=== PATIENT | male | born 1970 | race African-American/Black ===

== ENCOUNTER 2016-09-29 14:10 | Emergency (ER) | payer BC, OTHER ==
[2016-09-29] MEDS ORDERED: KETOROLAC 60 MG/2 ML VIAL IM STA (14:25)
[2016-09-29] MEDS ORDERED: METOCLOPRAMIDE 10 MG TAB PO STA (14:25)
[2016-09-29] MEDS ORDERED: amLODIPine 5 MG TAB PO STA (14:25)
[2016-09-29] MEDS ORDERED: diphenhydrAMINE 50 MG/ML 1 ML VIAL IM STA (14:25)
[2016-09-29] MEDS ORDERED: LISINOPRIL 20 MG TAB PO STA (14:25)
--- NOTE | 2016-09-29 14:31 | ED ---
General Adult HPI - General Chief complaint: Headache Stated complaint: migraine Time Seen by Provider: 09/29/16 14:21 Source: patient, RN notes reviewed Mode of arrival: ambulatory Limitations: no limitations - History of Present Illness Initial comments: 46-year-old male with history of hypertension and migraines presenting for headache. Patient states some headache for the past day and half. Says it feels frontal in distribution. He denies any visual changes associated. He also states that he has been off of his hypertension medication since January 2016. States he takes amlodipine and benazapril for this. He states his headache seemed to come on when his blood pressure is high. He denies any chest pain or shortness of breath associated. Denies any lower extremity swelling. He has not tried any medications to help this at this point. - Related Data Previous Rx's Medication Instructions Recorded Benazepril HCl 40 mg PO DAILY #30 tab 09/29/16 Ibuprofen [Motrin] 800 mg PO Q8HR PRN #21 tab 09/29/16 amLODIPine [Norvasc] 5 mg PO DAILY #30 tab 09/29/16 Allergies Allergy/AdvReac Type Severity Reaction Status Date / Time No Known Allergies Allergy Verified 09/29/16 14:51 Review of Systems ROS Statement: Those systems with pertinent positive or pertinent negative responses have been documented in the HPI. ROS Other: All systems not noted in ROS Statement are negative. Past Medical History Past Medical History: Hypertension Additional Past Medical History / Comment(s): migraines History of Any Multi-Drug Resistant Organisms: None Reported Past Surgical History: Orthopedic Surgery Past Psychological History: No Psychological Hx Reported Smoking Status: Current every day smoker Past Alcohol Use History: Occasional Past Drug Use History: Marijuana General Exam - General Exam Comments Initial Comments: General: Awake and Alert. No acute distress. Does not appear acutely ill. Eyes: CARLI, EOM intact. No nystagmus. No scleral icterus. HENT: Atraumatic, normocephalic. Mucous membranes moist. Trachea midline. Neck: The neck is supple, there is no tenderness or JVD. Cardiovascular: Regular rate and rhythm. No murmur, rub, or gallop is appreciated. Distal pulses intact. Respiratory: Lungs are clear to auscultation bilaterally. No wheezes, rales, rhonchi. No respiratory distress. Gastrointestinal: Soft, Nontender. No rebound or guarding. Non-distended. No masses or organomegaly noted. No CVA tenderness. Musculoskeletal: No tenderness. Normal ROM. No gross deformity. No strength deficits. Neurological: A&Ox3. CN II-XII grossly intact, There are no obvious motor or sensory deficits. Coordination appears grossly intact. Speech is normal. Skin: Skin is warm and dry and no rashes or lesions are noted. Psychiatric: Cooperative, appropriate mood & affect, normal judgment. Limitations: no limitations Course Vital Signs 09/29/16 09/29/16 09/29/16 14:17 14:50 15:33 Temperature 97 F L Pulse Rate 90 90 Respiratory 20 18 Rate Blood Pressure 205/102 216/132 187/112 O2 Sat by Pulse 98 98 Oximetry 09/29/16 15:55 Temperature 98.8 F Pulse Rate 79 Respiratory 18 Rate Blood Pressure 167/100 O2 Sat by Pulse 96 Oximetry Medical Decision Making - Medical Decision Making 46-year-old male evaluated for headache. He has a history of migraines and hypertension. States feels like his normal type of headache. He has been off hypertension medications for the past several months. He is noted to be hypertensive in the ED. He denies any chest pain or shortness of breath or visual changes associated. Neurological exam is nonfocal. Patient is given doses of his hypertensive medications as well as headache cocktail. On reevaluation he states he is feeling significantly improved. Repeat BP improving. Discussed importance of restarting his hypertensive medications and Rx provided. Discussed importance of getting back in with Dr. Donohue for blood pressure recheck and titration of medications. Otherwise appears stable for discharge at this time. Discussed concerning signs symptoms for immediate return to the ED. Patient is agreeable with plan and discharge home. Disposition Clinical Impression: Nonintractable headache, Essential hypertension Disposition: HOME SELF-CARE Condition: Stable Instructions: Acute Headache (ED), Hypertension (ED) Prescriptions: amLODIPine [Norvasc] 5 mg PO DAILY #30 tab Benazepril HCl 40 mg PO DAILY #30 tab Ibuprofen [Motrin] 800 mg PO Q8HR PRN #21 tab PRN Reason: Pain Referrals: Edy Donohue MD [Primary Care Provider] - 1-2 days Time of Disposition: 15:49
[2016-09-29 14:52] VITALS: RESP 18
[2016-09-29 15:57] VITALS: BP 167/100; PULSE 79; TEMP 98.8
== END 2016-09-29 15:55 | disposition home or self-care (01) ==
LOC: EC 14:10
DX: I10 Essential (primary) hypertension (principal); R51 Headache; F17.200 Nicotine dependence, unspecified, uncomplicated; Z86.69 Personal history of other diseases of the nervous system and sense organs; Z79.899 Other long term (current) drug therapy
CPT/HCPCS: 99283; 96372 ×2; J1200; J1885

== ENCOUNTER → 2018-01-08 | Outpatient (CLI) | payer OTHER ==
--- NOTE | 2018-01-08 09:55 | MR ---
EXAMINATION TYPE: MR knee RT wo con DATE OF EXAM: 01/08/2018 9:13 AM COMPARISON: NONE HISTORY: Right knee pain TECHNIQUE: Multiplanar, multiecho imaging of the right knee is performed without IV contrast. FINDINGS: There is only a small amount of joint fluid. There is some bony bruising involving the inferior pole of the patella. There is grade IV chondromala chintan involving the lateral patellar facet. There is grade III to IV chondromalacia involving the weigh tbearing surface of the medial femoral condyle. There is grade I to II chondromalacia involving the w eightbearing surface of the lateral femoral condyle. There is pseudocystic change in the anteromedial aspect of the lateral femoral condyle. There is an undisplaced horizontal tear through the body of the lateral meniscus. The medial meniscus appears intact. Both the medial and lateral collateral ligament complexes are intact. Iliotibial band inserts normall y upon Gerdy's tubercle. There is a small amount of fluid adjacent to the popliteus musculotendinous junction. This may represent a small ganglion cyst. This is teardrop shape and measures just over a c entimeter in length. The popliteus muscle and tendon are otherwise unremarkable. The quadriceps and patellar tendons are intact. There is only minimal swelling in the Hoffa fat space . IMPRESSION: 1 CHONDROMALACIA DESCRIBED. 2. PSEUDOCYSTIC CHANGE IN THE ANTEROMEDIAL ASPECT OF THE LATERAL FEMORAL CONDYLE. 3. UNDISPLACED HORIZONTAL TEAR THROUGH THE BODY OF THE LATERAL MENISCUS. 4. PROBABLE SMALL GANGLION CYST ASSOCIATED WITH THE MUSCULOTENDINOUS JUNCTION OF THE POPLITEUS MUSCLE .
== END | disposition home or self-care (01) ==
LOC: RADMRIMAIN 08:36
PROVIDERS: ATTEND Physician Assistant Medical
DX: S83.281A Other tear of lateral meniscus, current injury, right knee, initial encounter (principal); M94.261 Chondromalacia, right knee

== ENCOUNTER 2018-09-12 16:44 | Emergency (ER) | payer OTHER ==
[2018-09-12] MEDS ORDERED: SODIUM CHLORIDE 0.9% 500 ML 500 ML IV ONE (16:46)
[2018-09-12] MEDS ORDERED: SODIUM CHLORIDE 0.9% 1,000 ML IV SCH (17:00)
[2018-09-12] MEDS ORDERED: LABETALOL SYRINGE 5 MG/ML IVP STA (17:04)
--- NOTE | 2018-09-12 17:13 | ED ---
General Adult HPI - General Chief complaint: Recheck/Abnormal Lab/Rx Stated complaint: Seizure Time Seen by Provider: 09/12/18 16:46 Source: patient, EMS, RN notes reviewed, old records reviewed Mode of arrival: EMS Limitations: no limitations - History of Present Illness Initial comments: 48-year-old male presents for evaluation of seizure-like activity. Patient was brought in by EMS after an episode of generalized shaking. Patient was responsive throughout this episode. He had been complaining of a headache. Headaches have been present for the past 3 or 4 weeks. He has no previous history of seizure disorder. He has previous history of hypertension but has not been on medication for several months. He is uncertain of exactly what medication he was on. Denies focal numbness or weakness. Denies chest pain or dyspnea. He did have an episode of vomiting with central chest pain prior to arrival this has resolved without treatment. He has been going through quite a bit of stress including a recent family member with stage IV cancer. - Related Data Previous Rx's Medication Instructions Recorded amLODIPine [Norvasc] 10 mg PO DAILY #30 tablet 09/12/18 Allergies Allergy/AdvReac Type Severity Reaction Status Date / Time No Known Allergies Allergy Verified 09/12/18 17:34 Review of Systems ROS Statement: Those systems with pertinent positive or pertinent negative responses have been documented in the HPI. ROS Other: All systems not noted in ROS Statement are negative. Past Medical History Past Medical History: Hypertension Additional Past Medical History / Comment(s): migraines History of Any Multi-Drug Resistant Organisms: None Reported Past Surgical History: Orthopedic Surgery Past Psychological History: No Psychological Hx Reported Smoking Status: Current every day smoker Past Alcohol Use History: Occasional Past Drug Use History: Marijuana General Exam Limitations: no limitations General appearance: alert, in no apparent distress Head exam: Present: atraumatic, normocephalic Eye exam: Present: normal appearance, PERRL ENT exam: Present: normal exam Neck exam: Present: normal inspection. Absent: tenderness, meningismus Respiratory exam: Present: normal lung sounds bilaterally. Absent: respiratory distress, wheezes, rales Cardiovascular Exam: Present: regular rate, normal rhythm GI/Abdominal exam: Present: soft. Absent: distended, tenderness Extremities exam: Present: normal inspection, normal capillary refill, pedal edema. Absent: calf tenderness Neurological exam: Present: alert, oriented X3, CN II-XII intact. Absent: motor sensory deficit Psychiatric exam: Present: normal affect, normal mood Skin exam: Present: warm, dry, intact. Absent: cyanosis, diaphoretic Course Vital Signs 09/12/18 09/12/18 09/12/18 16:50 17:30 18:05 Temperature 98.3 F Pulse Rate 84 79 79 Respiratory 18 18 20 Rate Blood Pressure 230/120 175/119 187/123 O2 Sat by Pulse 99 99 96 Oximetry 09/12/18 09/12/18 18:30 19:28 Temperature Pulse Rate 80 81 Respiratory 18 18 Rate Blood Pressure 175/114 131/130 O2 Sat by Pulse 98 98 Oximetry EKG Findings - EKG Comments: EKG Findings:: EKG: Normal sinus rhythm, rate of 83, ND interval 196, QRS duration 92, QTC 439 T waves are upright. Medical Decision Making - Medical Decision Making 48-year-old male presenting for evaluation of generalized shaking, concern for seizure. Patient was alert throughout this episode, he does remember his symptoms. No seizure disorder previously. Patient was noted to have significantly elevated blood pressure, he's been off his antihypertensive medications for some time. He also complained of intermittent headaches. CT was performed, this was negative for intracranial hemorrhage or mass effect per patient has normal CBC, normal CMP. Urinalysis pending I would prefer this patient be admitted for further workup of the possibility of Seizures as well as hypertension. His blood pressures quite elevated, was given 20 of labetalol with some improvement in his pressure in the emergency department. Patient declines. He wants to be discharged. Will initiate antihypertensive medications. I will give him neurology follow-up. He will return with worsening or changing symptoms. - Lab Data Result diagrams: 09/12/18 17:02 09/12/18 17:02 Lab Results 09/12/18 09/12/18 09/12/18 Range/Units 17:02 17:02 17:02 WBC 5.2 (3.8-10.6) k/uL RBC 5.25 (4.30-5.90) m/uL Hgb 14.7 (13.0-17.5) gm/dL Hct 45.3 (39.0-53.0) % MCV 86.3 (80.0-100.0) fL MCH 28.0 (25.0-35.0) pg MCHC 32.5 (31.0-37.0) g/dL RDW 15.4 (11.5-15.5) % Plt Count 165 (150-450) k/uL Neutrophils % 66 % Lymphocytes % 18 % Monocytes % 9 % Eosinophils % 4 % Basophils % 0 % Neutrophils # 3.4 (1.3-7.7) k/uL Lymphocytes # 0.9 L (1.0-4.8) k/uL Monocytes # 0.5 (0-1.0) k/uL Eosinophils # 0.2 (0-0.7) k/uL Basophils # 0.0 (0-0.2) k/uL Sodium 141 (137-145) mmol/L Potassium 3.5 (3.5-5.1) mmol/L Chloride 111 H (98-107) mmol/L Carbon Dioxide 24 (22-30) mmol/L Anion Gap 6 mmol/L BUN 17 (9-20) mg/dL Creatinine 1.00 (0.66-1.25) mg/dL Est GFR (CKD-EPI)AfAm >90 (>60 ml/min/1.73 sqM) Est GFR (CKD-EPI)NonAf 87 (>60 ml/min/1.73 sqM) Glucose 107 H (74-99) mg/dL Plasma Lactic Acid Rei 1.4 (0.7-2.0) mmol/L Calcium 9.5 (8.4-10.2) mg/dL Total Bilirubin 0.4 (0.2-1.3) mg/dL AST 27 (17-59) U/L ALT 22 (21-72) U/L Alkaline Phosphatase 49 (38-126) U/L Total Protein 7.3 (6.3-8.2) g/dL Albumin 4.1 (3.5-5.0) g/dL Disposition Clinical Impression: Hypertension, New onset seizure Disposition: HOME SELF-CARE Condition: Fair Instructions (If sedation given, give patient instructions): New-Onset Seizure in Adults (ED), Hypertension (ED) Prescriptions: amLODIPine [Norvasc] 10 mg PO DAILY #30 tablet Is patient prescribed a controlled substance at d/c from ED?: No Referrals: [facility] [Primary Care Provider] - 1-2 days Jessica Kwon MD [STAFF PHYSICIAN] - 1-2 days Time of Disposition: 20:26
[2018-09-12 17:21] LABS: Basophils % (A) 0 %; Eosinophils # (A) 0.2 k/uL (0-0.7); Eosinophils % (A) 4 %; HCT 45.3 % (39.0-53.0); HGB 14.7 gm/dL (13.0-17.5); Lymphocytes # (A) 0.9 k/uL (1.0-4.8); Lymphocytes % (A) 18 %; MCHC 32.5 g/dL (31.0-37.0); MCV 86.3 fL (80.0-100.0); Mean Platelet Volume 8.9; Monocytes # (A) 0.5 k/uL (0-1.0); Monocytes % (A) 9 %; Neutrophils # (A) 3.4 k/uL (1.3-7.7); Neutrophils % (A) 66 %; Platelet Count 165 k/uL (150-450); RBC 5.25 m/uL (4.30-5.90); RDW 15.4 % (11.5-15.5); WBC 5.2 k/uL (3.8-10.6)
[2018-09-12 17:38] LABS: ALT 22 U/L (21-72); AST 27 U/L (17-59); Albumin 4.1 g/dL (3.5-5.0); Alkaline Phosphatase 49 U/L (38-126); Anion Gap 6 mmol/L; Blood Urea Nitrogen 17 mg/dL (9-20); Calcium 9.5 mg/dL (8.4-10.2); Carbon Dioxide 24 mmol/L (22-30); Chloride 111 mmol/L (98-107); Glucose 107 mg/dL (74-99); Potassium 3.5 mmol/L (3.5-5.1); Sodium 141 mmol/L (137-145); Total Bilirubin 0.4 mg/dL (0.2-1.3); Total Protein 7.3 g/dL (6.3-8.2)
--- NOTE | 2018-09-12 18:36 | CT ---
EXAMINATION TYPE: CT brain wo con DATE OF EXAM: 09/12/2018 COMPARISON: Prior CT brain 01/21/2014 HISTORY: Seizure. CT DLP: 1111.4 mGycm Automated exposure control for dose reduction was used. Helical imaging through the brain. FINDINGS: There is no interval change. IMPRESSION: STABLE EXAM, NO ACUTE ABNORMALITY.
[2018-09-12 19:29] VITALS: RESP 18
[2018-09-12 19:30] VITALS: PULSE 81
[2018-09-12 20:29] LABS: Appearance,Urine Clear (Clear); Bilirubin,Urine Negative (Negative); Blood,Urine Small (Negative); Color,Urine Yellow; Glucose,Urine (UA) Negative (Negative); Ketones,Urine Negative (Negative); Leukocyte Esterase,Urine Trace (Negative); Mucus,Urine Occasional /hpf; Nitrite,Urine Negative (Negative); PH, Urine 5.5 (5.0-8.0); Protein,Urine Trace (Negative); RBC,Urine 3 /hpf (0-5); Squamous Epithelial Cell,Urine 1 /hpf (0-4); Urobilinogen,Urine <2.0 mg/dL (<2.0); WBC,Urine 10 /hpf (0-5)
[2018-09-12 20:44] LABS: Amphetamine Screen,Urine Not Detected (NotDetected); Barbiturate Screen,Urine Not Detected (NotDetected); Benzodiazepines Screen,Urine Not Detected (NotDetected); Cocaine Screen,Urine Not Detected (NotDetected); Methadone Screen, Urine Not Detected (NotDetected); Opiate Screen,Urine Not Detected (NotDetected); Oxycodone Screen, Urine Not Detected (NotDetected); Phencyclidine Screen,Urine Not Detected (NotDetected); Tricyclic Antidepressant,Urine Not Detected (NotDetected); Urn Cannabinoid Scrn Not Detected (NotDetected)
[2018-09-12 20:53] VITALS: BP 162/104; TEMP 98.4
== END 2018-09-12 20:45 | disposition home or self-care (01) ==
LOC: EC 16:44
DX: R56.9 Unspecified convulsions (principal); I10 Essential (primary) hypertension; R51 Headache; F17.200 Nicotine dependence, unspecified, uncomplicated; Z86.69 Personal history of other diseases of the nervous system and sense organs
CPT/HCPCS: 36415; 70450; 80053; 80306; 81001; 83605; 85025; 93005; 96361; 96374; 99285

== ENCOUNTER 2019-01-10 11:30 | Day surgery (SDC) | payer OTHER ==
[~2019-01-10 11:30] MED LIST: LACTATED RINGERS 1,000 ML IV SCH; LIDOCAINE 1% 20 ML VIAL (10MG/ML) FOR IV START INTRADERMA PRN
[2019-01-10 11:50] VITALS: TEMP 97.6
[2019-01-10] MEDS ORDERED: LIDOCAINE 1% INJ 10MG/ML (20 ML MDV) ONE (12:01)
[2019-01-10] MEDS ORDERED: PROPOFOL 10 MG/ML 20 ML VIAL IV ONE (12:01)
[2019-01-10] MEDS ORDERED: IV FLUID CONTINUATION 1,000 ML IV ONE (12:33)
--- NOTE | 2019-01-10 12:37 | P.PCN ---
Date of Procedure: 01/10/19 Description of Procedure: BRIEF HISTORY: Patient is a 48-year-old pleasant male scheduled for an elective colonoscopy as a part of screening for malignant neoplasm of the colon. No prior history of colonoscopy. Patient does have a family history of colon cancer mother. Denies any change in bowel habits, blood per rectum or abdominal pain. PROCEDURE PERFORMED: Colonoscopy with polypectomy. PREOPERATIVE DIAGNOSIS: Screening for malignant neoplasm colon, family history of colon cancer in the patient's mother, no prior colonoscopies. ESTIMATED BLOOD LOSS: Minimal. IV sedation per Anesthesia. PROCEDURE: After informed consent was obtained, the patient, was brought into the endoscopy unit. IV sedation was administered by Anesthesia under continuous monitoring. Digital rectal examination was normal. Initially the Olympus CF-190 flexible video colonoscope was then inserted in the rectum, gradually advanced into the cecum without any difficulty. Careful examination was performed as the scope was gradually being withdrawn. Ileocecal valve and the appendiceal orifice were visualized and appeared normal. Prep was excellent. Mucosa of the cecum, ascending colon, transverse colon, descending colon, sigmoid colon, and rectum appeared normal. Diminutive 2 mm ascending colon sessile polyp removed with cold forceps polypectomy. Retroflexion was performed in the rectum and no lesions were seen. The patient tolerated the procedure well. IMPRESSION: Normal-appearing colon from rectum to cecum. Diminutive 2 mm ascending colon polyp removed with cold forceps. RECOMMENDATIONS: Findings of this examination were discussed with the patient. Okay to resume diet. Recommend repeat colonoscopy in 5 years given family history of colon cancer. Await pathology from polypectomy.
[2019-01-10 12:49] VITALS: PULSE 78; RESP 18
[2019-01-10 13:00] VITALS: BP 132/78
== END 2019-01-10 13:20 | disposition home or self-care (01) ==
LOC: ORWHC2ENDO 11:30
PROVIDERS: ATTEND Internal Medicine
DX: Z12.11 Encounter for screening for malignant neoplasm of colon (principal); D12.2 Benign neoplasm of ascending colon; Z80.0 Family history of malignant neoplasm of digestive organs; Z79.899 Other long term (current) drug therapy; Z98.890 Other specified postprocedural states; F17.210 Nicotine dependence, cigarettes, uncomplicated; I10 Essential (primary) hypertension
CPT/HCPCS: 88305; 45380; J2001; J2704

== ENCOUNTER → 2021-12-31 | Outpatient (CLI) | payer OTHER ==
--- NOTE | 2022-01-01 06:20 | MR ---
EXAMINATION TYPE: MR knee RT wo con DATE OF EXAM: 12/31/2021 COMPARISON: Prior MRI right knee January 08, 2018 HISTORY: Right inner knee pain, painful kneecap, locking and swelling for 4 years. TECHNIQUE: Multiplanar, multisequence imaging of the right knee is performed without IV contrast. FINDINGS: MEDIAL MENISCUS: Truncated appearance posterior horn with increased signal extending to inferior nesha cular surface redemonstrated. LATERAL MENISCUS: Horizontal increased signal anterior horn extends to superior articular surface. CRUCIATE LIGAMENTS: The anterior and posterior cruciate ligaments are intact and unremarkable. COLLATERAL LIGAMENTS: The medial collateral ligament and lateral collateral ligament complex are inta ct and unremarkable. EXTENSOR MECHANISM: Visualized quadriceps and patellar tendons are intact. EFFUSION: No significant suprapatellar joint effusion. POPLITEAL CYST: No popliteal/carrion cyst. TRICOMPARTMENT SPACES: Moderate to severe narrowing inferior patellofemoral compartment redemonstrate d. Mild to moderate narrowing and mild spurring medial and lateral tibiofemoral compartments redemons trated. CARTILAGE: Significant chondromalacia patella with fissuring and cartilaginous loss along posterior p atellar pole radius central and inferior aspect. BONE MARROW SIGNAL: Areas of subchondral cystic change along the posterior patellar pole and along th e anterior aspect of the distal lateral femoral condyle is related. OTHER: Stable 1.2 cm intramedullary lesion of low T1 and increased T2 signal in the distal femoral d iaphysis coronal image 20 favored nonaggressive in etiology. IMPRESSION: 1. Moderate to advanced patellofemoral joint arthropathy redemonstrated as detailed above. No signifi cant change from prior MRI. Mild to moderate degenerative changes otherwise seen. 2. Horizontal tear anterior horn lateral meniscus extending into body redemonstrated. 3. Full thickness tearing posterior horn medial meniscus extending into the central body appears more prominent from prior MRI.
== END | disposition home or self-care (01) ==
LOC: RADMRIMAIN 19:02
PROVIDERS: ATTEND Orthopaedic Surgery
DX: M23.241 Derangement of anterior horn of lateral meniscus due to old tear or injury, right knee (principal); M23.221 Derangement of posterior horn of medial meniscus due to old tear or injury, right knee

== ENCOUNTER → 2022-02-12 | Outpatient (CLI) | payer OTHER ==
[2022-02-12 15:35] LABS: Anion Gap 11.3 mmol/L (10.00-18.00); Carbon Dioxide 22.7 mmol/L (20.0-27.5); Potassium 4.1 mmol/L (3.5-5.5)
[2022-02-12 15:40] LABS: Basophils # (A) 0.05 X 10*3/uL (0.00-0.10); Basophils % (A) 0.6 %; Eosinophils # (A) 0.47 X 10*3/uL (0.04-0.35); Eosinophils % (A) 5.7 %; HCT 44.6 % (39.6-50.0); HGB 14.7 g/dL (13.0-17.0); Immature Grans, Automated 0.2 %; Lymphocytes # (A) 2.63 X 10*3/uL (0.90-5.00); Lymphocytes % (A) 32.1 %; MCH 29.3 pg (27.0-32.0); MCV 88.8 fL (80.0-97.0); Mean Platelet Volume 10.6 fL (9.5-12.2); Monocytes # (A) 0.74 X 10*3/uL (0.20-1.00); NRBC Per 100 WBC 0 /100 WBCS (0.0-0.0); Neutrophils # (A) 4.29 X 10*3/uL (1.80-7.70); Neutrophils % (A) 52.4 %; Platelet Count 246 X 10*3/uL (140-440); RBC 5.02 X 10*6/uL (4.40-5.60); RDW 15.4 % (11.5-14.5)
== END | disposition home or self-care (01) ==
LOC: LABPAT 08:11
PROVIDERS: ATTEND Orthopaedic Surgery
DX: Z01.812 Encounter for preprocedural laboratory examination (principal); M23.91 Unspecified internal derangement of right knee
CPT/HCPCS: 36415; 80051; 85025; 93005

== ENCOUNTER 2022-02-26 13:19 | Day surgery (SDC) | payer OTHER ==
[2022-02-20 13:13] VITALS: BMI 31.4
--- NOTE | 2022-02-26 00:52 | HP ---
HISTORY AND PHYSICAL DATE OF SURGERY: 02/26/2022. HISTORY OF PRESENT ILLNESS: Kacie Jade is a 52-year-old patient seen with progressive right knee pain. We discussed options for treatment. The patient would like to proceed with right knee arthroscopy. Consent was obtained. PAST MEDICAL HISTORY: Hypertension, hyperlipidemia. PAST SURGICAL HISTORY: Foot surgery. DAILY MEDICATIONS: 1. Amlodipine. 2. Benazepril. 3. Carvedilol. 4. Ibuprofen. ALLERGIES: None. SOCIAL HISTORY: The patient does not smoke cigarettes. PHYSICAL EVALUATION OF THE RIGHT KNEE: Range of motion of the right knee is 0 to 125. Mild effusion. Tenderness along the medial and lateral joint lines. Positive medial Daniella's. Positive lateral Daniella's. Ligaments stable. Hip rotation without pain. Distal neurovascular exam is intact. RADIOGRAPHS: Right knee radiographs revealed moderate osteoarthritis. MRI of right knee revealed medial and lateral meniscal tears along with osteoarthritic changes. IMPRESSION: 1. Internal derangement of right knee with medial and lateral meniscal tears. 2. Hypertension. 3. Hyperlipidemia. PLAN: Right knee arthroscopy with partial medial/lateral meniscectomy and debridement. MMODL / IJN: [id number] /
[2022-02-26] MEDS ORDERED: DEXAMETHASONE SOD PHOSPHATE 4 MG/ML 1 ML VIAL IV ONE (13:48)
[2022-02-26] MEDS ORDERED: LACTATED RINGERS 1,000 ML IV SCH (13:48)
[2022-02-26] MEDS ORDERED: LIDOCAINE 1% (10MG/ML) FOR IV START INTRADERMA PRN (13:48)
[2022-02-26] MEDS ORDERED: ONDANSETRON 4 MG/2 ML VIAL IVP ONE (13:48)
[2022-02-26 14:09] VITALS: RESP 16
[2022-02-26] MEDS ORDERED: HYDROmorphone (PF) 1 MG/ML ONE (15:15)
[2022-02-26] MEDS ORDERED: PROPOFOL 10 MG/ML 20 ML VIAL IV ONE (15:15)
[2022-02-26] MEDS ORDERED: LIDOCAINE 2% INJ 20 MG/ML (2 ML VIAL) ONE (15:15)
[2022-02-26] MEDS ORDERED: MIDAZOLAM 2 MG/2 ML VIAL ONE (15:15)
[2022-02-26] MEDS ORDERED: fentaNYL (PF) 50 MCG/ML 2 ML AMP ONE (15:15)
[2022-02-26] MEDS ORDERED: BUPIVACAINE (PF) 0.25% 30 ML VIAL INTRAARTIC ONE (15:41)
[2022-02-26] MEDS ORDERED: LACTATED RINGERS 1,000 ML IV ONE (15:47)
--- NOTE | 2022-02-26 16:08 | P.OP ---
Date of Procedure: 02/26/22 Preoperative Diagnosis: Internal derangement right knee Postoperative Diagnosis: 1. Tear medial and lateral meniscus right knee 2. Reactive synovitis medial, lateral and suprapatellar compartments right knee Procedure(s) Performed: 1. Arthroscopic partial medial and lateral meniscectomy right knee 2. Arthroscopic partial synovectomy medial, lateral and suprapatellar compartments right knee Anesthesia: GETA, local Surgeon: Morgan Peraza Estimated Blood Loss (ml): 7 Pathology: none sent Condition: stable Disposition: PACU Indications for Procedure: 52-year-old patient seen with progressive right knee pain. After treatment options were discussed, he elected to proceed with arthroscopy. Operative Findings: See description of procedure Description of Procedure: Patient was taken to the operative suite. Patient underwent a general anesthetic by the department of anesthesia. Patient was given preoperative antibiotics. The right lower extremity was placed in a well-padded arthroscopic leg [place]. The right leg was prepped and draped in the normal sterile orthopedic fashion. A lateral parapatellar and suprapatellar incision was made. Trochars were inserted. Arthroscopy was initiated. Suprapatellar pouch revealed diffuse thick reactive synovitis. The patellofemoral joint appeared to articulate congruently. There with grade 1/2 chondromalacia of the patella without significant osteochondral tears.. The scope was guided into the medial gutter. No loose bodies or plica were identified. The scope was then guided into the medial compartment. A medial parapatellar incision was made. Trocar i nserted followed by probe. There was a complex tear involving the posterior horn of the medial meniscus. There was some thick reactive synovitis anteriorly. There were grade 1 chondromalacia changes of medial compartment. I performed a partial medial meniscectomy. I performed a partial synovectomy. Shaver was now removed. The residual meniscus was stable. There was good decompression of the synovitis. Scope and probe were then guided into the intercondylar notch. Cruciates were identified, probed and found to be stable. The scope and probe were then guided into lateral compartment. There was a radial tear involving the midbody lateral meniscus. There was some thick reactive synovitis anteriorly. I performed a partial lateral meniscectomy. I performed a partial synovectomy. The residual meniscus was probed and was found to be stable. There was good decompression of the synovitis. The scope was in guided back into the suprapatellar compartment. I introduced a motorized shaver into the suprapatellar compartment. I debrided out some piecemeal fragments of meniscus I encountered. I performed a partial synovectomy. The shaver was now removed. There was good decompression of the synovitis. I now took one more look around the entire knee, no residual debris. Instruments were now removed from the joint. The joint was infiltrated with .25% Marcaine. Steri-Strips were applied to the portal sites. Sterile dressings were applied. The patient was placed into a TEODORA hose. No tourniquet was utilized. The patient was awakened, transferred to a bed and taken to recovery stable satisfactory condition.
[2022-02-26 16:12] VITALS: TEMP 97.4
[2022-02-26] MEDS: HYDROmorphone 0.5 MG/0.5 ML SYRINGE IVP PRN ×2 (16:20→16:26)
[2022-02-26] MEDS ORDERED: HYDROcodone/APAP 7.5-325MG 1 EACH TAB PO ONE (17:00)
[2022-02-26] MEDS ORDERED: HYDROcodone/APAP 7.5-325MG 1 EACH TAB ONE (17:01)
[2022-02-26] MEDS ORDERED: KETOROLAC 15 MG/ML 1 ML VIAL IVP ONE (17:05)
[2022-02-26] MEDS ORDERED: KETOROLAC 15 MG/ML 1 ML VIAL ONE (17:08)
[2022-02-26 17:24] VITALS: BP 138/90; PULSE 75
== END 2022-02-26 17:37 | disposition home or self-care (01) ==
LOC: OR 13:19
PROVIDERS: ATTEND Orthopaedic Surgery
DX: S83.281A Other tear of lateral meniscus, current injury, right knee, initial encounter (principal); S83.241A Other tear of medial meniscus, current injury, right knee, initial encounter; M17.11 Unilateral primary osteoarthritis, right knee; M23.91 Unspecified internal derangement of right knee; I10 Essential (primary) hypertension; E78.5 Hyperlipidemia, unspecified
CPT/HCPCS: 29880; J2250; J1100; J0690; J2405; J3010; J1170 ×2; J1885; J2704; J2001

== ENCOUNTER 2022-07-02 12:29 | Day surgery (SDC) | payer OTHER ==
--- NOTE | 2022-07-01 21:42 | HP ---
HISTORY AND PHYSICAL DATE OF SURGERY: 07/02/2022. HISTORY OF PRESENT ILLNESS: Kacie Jade is a 52-year-old patient seen with progressive left knee pain. We discussed options for treatment. He elected to proceed with left knee arthroscopy. Consent regarding procedure was obtained. PAST MEDICAL HISTORY: Hypertension, hyperlipidemia. PAST SURGICAL HISTORY: Foot surgery. DAILY MEDICATIONS: 1. Amlodipine. 2. Atorvastatin. 3. Benazepril. 4. Carvedilol. ALLERGIES: None. SOCIAL HISTORY: He does currently smoke cigarettes. PHYSICAL EVALUATION OF LEFT KNEE: Range of motion is negative to 120 degrees. Tenderness along the medial and lateral joint lines. There is a positive medial Daniella's and positive lateral Daniella's. Ligaments are stable. Hip rotation is without pain. Distal neurovascular exam is intact. RADIOGRAPHS: Radiographs of the left knee revealed some mild osteoarthritic changes. MRI left knee revealed medial meniscal tear and osteoarthritic changes. IMPRESSION: 1. Internal derangement of left knee with medial meniscal tear. 2. Hypertension. 3. Hyperlipidemia. PLAN: Left knee arthroscopy with partial medial meniscectomy and debridement. MMODL / IJN: [id number] /
[~2022-07-02 12:29] MED LIST changes: -LACTATED RINGERS 1,000 ML IV SCH; +LIDOCAINE 1% (10MG/ML) FOR IV START INTRADERMA PRN; -LIDOCAINE 1% 20 ML VIAL (10MG/ML) FOR IV START INTRADERMA PRN; +MIDAZOLAM 2 MG/2 ML VIAL IV PRN
[2022-07-02] MEDS: LACTATED RINGERS 1,000 ML IV SCH (13:09)
[2022-07-02] MEDS: DEXAMETHASONE SOD PHOSPHATE 4 MG/ML 1 ML VIAL IV ONE ×2 (13:09→19:05)
[2022-07-02] MEDS: ONDANSETRON 4 MG/2 ML VIAL IVP ONE ×2 (13:10→19:05)
[2022-07-02] MEDS ORDERED: LIDOCAINE 2% INJ 20 MG/ML (2 ML VIAL) ONE (13:33)
[2022-07-02] MEDS ORDERED: LABETALOL 5 MG/ML VIAL MDV ONE (13:33)
[2022-07-02] MEDS ORDERED: MIDAZOLAM 2 MG/2 ML VIAL ONE (13:33)
[2022-07-02] MEDS ORDERED: PROPOFOL 10 MG/ML 20 ML VIAL IV ONE (13:33)
[2022-07-02] MEDS ORDERED: fentaNYL (PF) 50 MCG/ML 2 ML AMP ONE (13:33)
[2022-07-02] MEDS ORDERED: BUPIVACAIN-EPI 0.25%-1:200,000 30 ML VIAL SQ ONE (13:36)
--- NOTE | 2022-07-02 14:18 | P.OP ---
Date of Procedure: 07/02/22 Preoperative Diagnosis: Internal derangement left knee Postoperative Diagnosis: 1. Medial and lateral meniscal tears left knee 2. Reactive synovitis medial, lateral and suprapatellar compartments left knee Procedure(s) Performed: 1. Arthroscopic partial medial and lateral meniscectomy left knee 2. Arthroscopic partial synovectomy medial, lateral and suprapatellar compartments left knee Anesthesia: GETA, local Surgeon: Morgan Peraza Estimated Blood Loss (ml): 11 Pathology: none sent Condition: stable Disposition: PACU Indications for Procedure: 52-year-old patient seen with progressive left knee pain. After treatment options were discussed, the patient to proceed with left knee arthroscopy. Operative Findings: See description of procedure Description of Procedure: Patient was taken to the operative suite. Patient underwent a general anesthetic by the department of anesthesia. Patient was given preoperative antibiotics. The left lower extremity was placed in a well-padded arthroscopic leg [place]. The left leg was prepped and draped in the normal sterile orthopedic fashion. A lateral parapatellar and suprapatellar incision was made. Trochars were inserted. Arthroscopy was initiated. Suprapatellar pouch revealed diffuse thick reactive synovitis. The patellofemoral joint appeared to articulate congruently. There was grade 2 chondromalacia of the patella without significant osteochondral tears.. The scope was guided into the medial gutter. No loose body or plica were identified. The scope was then guided into the medial compartment. A medial parapatellar incision was made. Trocar inserted followed by probe. There was a complex tear involving the posterior horn of the medial meniscus. There were grade 1 chondromalacia changes of the medial femoral condyle without tears. There was some thick reactive synovitis anteriorly. I performed a partial medial meniscectomy getting down to stable meniscal tissue. I performed a partial synovectomy decompressing the reactive synovitis. The residual meniscus was stable. There was good decompression of the synovitis. Scope and probe were then guided into the intercondylar notch. Cruciates were identified, probed and found to be stable. The scope and probe were then guided into lateral compartment. There was a radial tear mid body lateral meniscus. There was some thick reactive synovitis anteriorly. I performed a partial lateral meniscectomy getting down to stable meniscal tissue. I performed a partial synovectomy decompressing the reactive synovitis. The residual meniscus was stable. There was good decompression of the synovitis. The scope was in guided back into the suprapatellar compartment. I introduced a motorized shaver into the suprapatellar compartment. I debrided some piecemeal fragments of meniscus that I encountered. I performed a partial synovectomy. The shaver was now removed. There was good decompression of the synovitis. I took one more look around the entire knee, no residual debris. Instruments were now removed from the joint. The joint was infiltrated with .25% Marcaine. Steri-Strips were applied to the portal sites. Sterile dressings were applied. The patient was placed into a TEODORA hose. No tourniquet was utilized. The patient was awakened, transferred to a bed and taken to recovery stable satisfactory condition.
[2022-07-02] MEDS: HYDROmorphone 0.5 MG/0.5 ML SYRINGE IVP PRN ×3 (14:34→14:56)
[2022-07-02] MEDS: LABETALOL SYRINGE 5 MG/ML IVP ONE ×2 (15:09→15:31)
[2022-07-02] MEDS ORDERED: HYDROcodone/APAP 5-325MG 1 EACH TAB ONE ×2 (16:04→16:08)
[2022-07-02] MEDS ORDERED: HYDROcodone/APAP 5-325MG 1 EACH TAB PO ONE (16:10)
[2022-07-02] MEDS ORDERED: hydrALAZINE HCL 20 MG/ML 1 ML VIAL IVP ONE (16:15)
[2022-07-02] MEDS ORDERED: NALOXONE 0.4 MG/ML 1 ML VIAL IV PRN (17:11)
[2022-07-02] MEDS ORDERED: ACETAMINOPHEN TAB 325 MG TAB PO PRN (17:12)
[2022-07-02] MEDS ORDERED: hydrALAZINE HCL 20 MG/ML 1 ML VIAL IVP PRN (17:13)
--- NOTE | 2022-07-02 17:17 | P.HPIM ---
History of Present Illness H&P Date: 07/02/22 Patient is a 52-year-old male with history of hypertension, uncontrolled, dyslipidemia presenting for elective knee arthroscopy. Patient has been hypertensive preoperatively, and remains hypertensive postoperatively as well. Patient being admitted directly from OR for further hypertension management. He claims that he only takes his medications half the time at home. His blood pressure normally runs in the 160s systolic at home. He currently denies any headaches, vision changes chest pain, shortness of breath, abdominal pain, nausea, vomiting, diarrhea, constipation, or urinary complaints. Currently he remains hypertensive in 170s, saturating well on room air. No rece nt lab works were available. Patient seen and examined at bedside. Pertinent positives and negatives as discussed in HPI, a complete review of systems was performed and all other systems are negative. Vital signs reviewed General: nontoxic, no distress, appears at stated age Derm: warm, dry Head: atraumatic, normocephalic, symmetric Eyes: EOMI, no lid lag, anicteric sclera, pupils equal round reactive to light ENT: Nose and ears atraumatic Neck: No thyromegaly, supple Mouth: no lip lesion, mucus membranes moist Cardiovascular: S1S2 reg, no murmur, no edema Lungs: clear to auscultation bilateral, no rhonchi, no rales, no wheeze, no accessory muscle use Abdominal: soft, nontender to palpation, no guarding, no appreciable organomegaly Ext: no gross muscle atrophy, muscle strength muscle strength 5 out of 5 in all 4 extremities, no contractures Neuro: CN II-XII grossly intact Psych: Alert, oriented, appropriate affect Assessment/Plan: Hypertensive urgency History of uncontrolled hypertension Dyslipidemia Medication noncompliance -CBC and CMP ordered -Resume home medications carvedilol 6.25 mg twice a day, chlorthalidone 25 mg daily, amlodipine 10 mg daily, benazepril 40 mg daily -Hydralazine 10 mg IV push every 6 hours as needed for systolic blood pressure greater than 180, or diastolic blood pressure greater than 120 Status post Knee arthroscopy -Management per surgery -On Tylenol 650 mg every 6 hours as needed The patient is admitted with an anticipated less than 2 midnight stay for evaluation of hypertensive urgency. Surrogate decision-maker: Significant other CODE STATUS: Full code DVT prophylaxis: Lovenox Anticipated discharge date: Likely tomorrow Anticipated discharge place: Home A total of 55 minutes was spent on the care of this complex patient more than 50% of the time was spent in counseling and care coordination. Past Medical History Past Medical History: Hypertension Additional Past Medical History / Comment(s): migraines History of Any Multi-Drug Resistant Organisms: None Reported Past Surgical History: Orthopedic Surgery Additional Past Surgical History / Comment(s): ACHILLES TENDON LEFT. Past Anesthesia/Blood Transfusion Reactions: No Reported Reaction Past Drug Use History: None Reported Medications and Allergies Home Medications Medication Instructions Recorded Confirmed Type Benazepril HCl 40 mg PO QAM 01/06/19 07/02/22 History amLODIPine [Norvasc] 10 mg PO QAM 01/06/19 07/02/22 History Atorvastatin Calcium 20 mg PO HS 02/26/22 07/02/22 History Chlorthalidone 25 mg PO DAILY 02/26/22 07/02/22 History carvediloL [Coreg] 6.25 mg PO BID 02/26/22 07/02/22 History HYDROcodone/APAP 5-325MG [[place] 1 tab PO Q6HR PRN #12 tab 07/02/22 Rx 5-325] Allergies Allergy/AdvReac Type Severity Reaction Status Date / Time No Known Allergies Allergy Verified 07/02/22 12:58 Physical Exam Vitals: Vital Signs Temp Pulse Pulse Resp BP BP BP 07/02/22 16:45 86 16 07/02/22 16:15 72 16 07/02/22 16:00 74 16 181/117 07/02/22 15:47 74 16 166/108 07/02/22 15:38 75 16 169/117 07/02/22 15:33 64 16 166/110 07/02/22 15:18 72 16 174/108 07/02/22 15:03 72 16 158/103 07/02/22 14:48 72 16 171/110 07/02/22 14:33 75 16 134/92 07/02/22 14:18 97 F L 72 16 115/74 07/02/22 13:24 151/103 07/02/22 13:14 167/114 07/02/22 13:04 98.1 F 83 18 194/127 180/117 BP Pulse Ox 07/02/22 16:45 170/99 96 07/02/22 16:15 185/103 99 07/02/22 16:00 98 03/16/23 15:47 95 07/02/22 15:38 96 07/02/22 15:33 97 07/02/22 15:18 96 07/02/22 15:03 96 07/02/22 14:48 95 07/02/22 14:33 92 L 07/02/22 14:18 98 07/02/22 13:24 07/02/22 13:14 07/02/22 13:04 96 Intake and Output 07/02/22 07/02/22 07/02/22 06:59 14:59 22:59 Intake Total 650 350 Output Total 11 Balance 639 350 Intake: IV 650 350 Output: Estimated Blood Loss 11 Other: Weight 100.9 kg Thrombosis Risk Factor Assmnt - Choose All That Apply Each Factor Represents 1 point: Age 41-60 years, Obesity (BMI >25) Each Risk Factor Represents 2 Points: Arthroscopic surgery Thrombosis Risk Factor Assessment Total Risk Factor Score: 4 Thrombosis Risk Factor Assessment Level: Moderate Risk
[2022-07-02] MEDS: HYDROcodone/APAP 5-325MG 1 EACH TAB PO PRN (19:00)
[2022-07-02 19:05] VITALS: RESP 18
[2022-07-02] MEDS: carvediloL 6.25 MG TAB PO SCH (19:08)
[2022-07-02 19:22] LABS: ALT 20 U/L (4-49); African American GFR (CKD) >90 (>60 ml/min/1.73 sqM); Albumin 4.6 g/dL (3.5-5.0); Anion Gap 8 mmol/L; Blood Urea Nitrogen 13 mg/dL (9-20); Calcium 9.8 mg/dL (8.4-10.2); Carbon Dioxide 26 mmol/L (22-30); Chloride 103 mmol/L (98-107); Glucose 120 mg/dL (74-99); Non-African American GFR(CKD) >90 (>60 ml/min/1.73 sqM); Sodium 137 mmol/L (137-145); Total Bilirubin 0.6 mg/dL (0.2-1.3); Total Protein 8.5 g/dL (6.3-8.2)
[2022-07-02 19:29] LABS: AST 25 U/L (17-59); Alkaline Phosphatase 50 U/L (38-126); Potassium 4.4 mmol/L (3.5-5.1)
[2022-07-02 19:39] LABS: Basophils % (A) 0 %; Eosinophils % (A) 0 %; HCT 51.5 % (39.0-53.0); HGB 16.8 gm/dL (13.0-17.5); Lymphocytes # (A) 1.1 k/uL (1.0-4.8); Lymphocytes % (A) 13 %; MCH 29.4 pg (25.0-35.0); MCHC 32.7 g/dL (31.0-37.0); MCV 89.9 fL (80.0-100.0); Mean Platelet Volume 9.1; Monocytes # (A) 0.2 k/uL (0-1.0); Monocytes % (A) 2 %; Neutrophils # (A) 7.1 k/uL (1.3-7.7); Neutrophils % (A) 84 %; Platelet Count 183 k/uL (150-450); RBC 5.73 m/uL (4.30-5.90); RDW 13.6 % (11.5-15.5); WBC 8.5 k/uL (3.8-10.6)
[2022-07-02] MEDS ORDERED: ATORVASTATIN 20 MG TAB PO SCH (21:00)
[2022-07-03] MEDS: LACTATED RINGERS 1,000 ML IV SCH (06:14)
[2022-07-03] MEDS: carvediloL 6.25 MG TAB PO SCH (06:17)
[2022-07-03] MEDS ORDERED: ENOXAPARIN 40 MG/0.4 ML SYRINGE SQ SCH (09:00)
[2022-07-03] MEDS ORDERED: amLODIPine 10 MG TAB PO SCH (09:00)
[2022-07-03] MEDS ORDERED: lisinopriL 20 MG TAB PO SCH (09:00)
[2022-07-03] MEDS ORDERED: CHLORTHALIDONE 25 MG TAB PO SCH (09:00)
[2022-07-03] MEDS: HYDROcodone/APAP 5-325MG 1 EACH TAB PO PRN (09:49)
[2022-07-03 10:11] VITALS: BP 154/80; PULSE 65; TEMP 98.5
--- NOTE | 2022-07-03 10:30 | P.PN ---
Subjective Progress Note Date: 07/03/22 Principal diagnosis: Left knee medial and lateral meniscal tears Patient is seen at bedside this morning sitting up in chair with legs elevated icing left knee. Patient does have TEODORA hose on on bilateral lower extremities. Patient says he has been up walking since surgery yesterday. Patient says he is hoping to go home today. Patient says she does have some knee pain currently and rates it as 5/10. Patient has urinated since surgery yesterday. Patient says he has not had a bowel movement yet, however, patient says he has been passing gas. Patient denies any other areas of pain at this time. Patient denies chest pain, fever, shortness breath, nausea, vomiting, change in vision, loss of bowel/bladder control. Objective - Vital Signs Vital signs: Vital Signs Temp 98.5 F 07/03/22 10:11 Pulse 65 07/03/22 10:11 Resp 18 07/03/22 10:11 BP 154/80 07/03/22 10:11 Pulse Ox 97 07/03/22 10:11 FiO2 Intake & Output 07/02/22 07/03/22 07/03/22 18:59 06:59 18:59 Intake Total 1050 540 Output Total 411 600 600 Balance 639 -60 -600 Weight 100.9 kg Intake: IV 1050 Oral 540 Output: Urine 400 600 600 Estimated Blood Loss 11 Other: Voiding Method Toilet Urinal - Exam Left knee: Incision is clean, dry, and intact. The dressing is in good condition. There is minimal soft tissue swelling and ecchymosis surrounding the medial and lateral aspects of the incision. Calf is soft, no tenderness with palpation. Plantar flexion, dorsiflexion, EHL, FHL are intact. Sensory exam to light touch throughout the extremity is intact, dorsal pedis pulses 2+. - Labs CBC & Chem 7: 07/02/22 18:47 07/02/22 18:47 Labs: Abnormal Lab Results - Last 24 Hours (Table) 07/02/22 Range/Units 18:47 Glucose 120 H (74-99) mg/dL Total Protein 8.5 H (6.3-8.2) g/dL Assessment and Plan Assessment: 1. Left knee medial and lateral meniscal tears - Postoperative day 1 status post left knee partial medial and partial lateral meniscectomy 2. Pre-and postoperative hypertension Plan: 1. Left knee medial and lateral meniscal tears - patient stable at bedside this morning postoperative day 1 status post left knee partial medial and partial meniscectomy. Patient adimtted due to pre-and postoperative hypertension. Pat ient is take pain medication as needed. Weightbearing as tolerated. Patient is stable from orthopedic standpoint for discharge home when medically stable. 2. Appreciate medical management 3. Pain management - [place]; Tylenol 4. DVT prophylaxis - Lovenox; TEODORA hose 5. GI recs 6. PT/OT - weightbearing as tolerated walker as needed. 7. Encourage incentive spirometer use 8. Discharge planning - patient is stable from an orthopedic standpoint for discharge. Time with Patient: Less than 30
--- NOTE | 2022-07-03 11:17 | P.DS ---
Providers Date of admission: 07/02/22 Expected date of discharge: 07/03/22 Attending physician: Morgan Peraza Consults: 07/02/22 17:01 Consult Physician Urgent Consulting Provider: Trenton Atwood Consult Reason/Comments: HYPERTENSION Do you want consulting provider notified?: Already Contacted Primary care physician: [facility] Hospital Course: Discharge Diagnosis: Hypertensive urgency History of uncontrolled hypertension Dyslipidemia Medication noncompliance Status post Knee arthroscopy Hospital Course: 52-year-old male with history of hypertension, uncontrolled, dyslipidemia presenting for elective knee arthroscopy. Patient has been hypertensive preoperatively, and remains hypertensive postoperatively as well. He is noncompliant with his home regimen. Patient remained stable overnight, with blood pressure improving. Being discharged on home regimen. He will follow up with his PCP. Patient seen and examined at bedside. Vital signs reviewed and stable. General: nontoxic, no distress, appears at stated age Derm: warm, dry Head: atraumatic, normocephalic, symmetric Eyes: EOMI, no lid lag, anicteric sclera, pupils equal round reactive to light ENT: Nose and ears atraumatic Neck: No thyromegaly, supple Mouth: no lip lesion, mucus membranes moist Cardiovascular: S1S2 reg, no murmur, no edema Lungs: clear to auscultation bilateral, no rhonchi, no rales, no wheeze, no accessory muscle use Abdominal: soft, nontender to palpation, no guarding, no appreciable organomegaly Ext: no gross muscle atrophy, muscle strength muscle strength 5 out of 5 in all 4 extremities, no contractures Neuro: CN II-XII grossly intact Psych: Alert, oriented, appropriate affect A total of 33 minutes of time were spent preparing this complex discharge summary. Patient was discharged on 07/03/22 at 11:14. Patient Condition at Discharge: Stable Plan - Discharge Summary Discharge Rx Participant: No New Discharge Prescriptions: New HYDROcodone/APAP 5-325MG [[place] 5-325] 1 tab PO Q6HR PRN #12 tab PRN Reason: Pain Continue amLODIPine [Norvasc] 10 mg PO QAM Benazepril HCl 40 mg PO QAM carvediloL [Coreg] 6.25 mg PO BID Atorvastatin Calcium 20 mg PO HS Chlorthalidone 25 mg PO DAILY Discharge Medication List Benazepril HCl 40 mg PO QAM 01/06/19 [History] amLODIPine [Norvasc] 10 mg PO QAM 01/06/19 [History] Atorvastatin Calcium 20 mg PO HS 02/26/22 [History] Chlorthalidone 25 mg PO DAILY 02/26/22 [History] carvediloL [Coreg] 6.25 mg PO BID 02/26/22 [History] HYDROcodone/APAP 5-325MG [[place] 5-325] 1 tab PO Q6HR PRN #12 tab 07/02/22 [Rx] Follow up Appointment(s)/Referral(s): Cristo Méndez PAC [PHYSICIAN CARVER HAND] - 07/17/22 11:30 am (Wednesday) Patient Instructions/Handouts: *Surgery [facility] - (Adv Ortho) Arthroscopic Knee Post-Op Instructions, *Sur[facility] - (Anesthesia) Discharge Instructions Outpatient Surgery Activity/Diet/Wound Care/Special Instructions: Continue using crutches or walker while at home Discharge Disposition: HOME SELF-CARE
== END 2022-07-03 12:30 | disposition home or self-care (01) ==
LOC: OR 12:29 → 3SCARD 17:02 → OR 07-03 12:30
PROVIDERS: ATTEND Orthopaedic Surgery
DX: S83.232A Complex tear of medial meniscus, current injury, left knee, initial encounter (principal); S83.282A Other tear of lateral meniscus, current injury, left knee, initial encounter; M65.862 Other synovitis and tenosynovitis, left lower leg; M94.262 Chondromalacia, left knee; M17.12 Unilateral primary osteoarthritis, left knee; I10 Essential (primary) hypertension; E78.5 Hyperlipidemia, unspecified; Z79.899 Other long term (current) drug therapy; Z98.890 Other specified postprocedural states; F17.210 Nicotine dependence, cigarettes, uncomplicated
CPT/HCPCS: 29880; 80053; 85025; J2250; J0360; J1100; J0690; J2405; J1650; J1170

== ENCOUNTER → 2022-11-03 | Outpatient (CLI) | payer OTHER ==
[2022-11-03 15:52] LABS: BUN/Creat Ratio 12.36 Ratio (12.00-20.00); Blood Urea Nitrogen 13.6 mg/dL (9.0-27.0); Calcium 9.8 mg/dL (8.7-10.3); Chloride 104 mmol/L (96-109); Glucose 101 mg/dL (70-110); Potassium 4.1 mmol/L (3.5-5.5); Sodium 140 mmol/L (135-145)
[2022-11-03 16:15] LABS: Basophils # (A) 0.04 X 10*3/uL (0.00-0.10); Basophils % (A) 0.7 %; Eosinophils # (A) 0.32 X 10*3/uL (0.04-0.35); Eosinophils % (A) 5.3 %; HCT 46.4 % (39.6-50.0); HGB 14.8 d/dL (12.0-15.0); Lymphocytes # (A) 2.05 X 10*3/uL (0.90-5.00); Lymphocytes % (A) 33.8 %; MCH 29.3 pg (27.0-32.0); MCHC 31.9 d/dL (32.0-37.0); MCV 91.9 FL (80.0-97.0); Mean Platelet Volume 11.3 FL (9.5-12.2); Monocytes # (A) 0.62 X 10*3/uL (0.20-1.00); Monocytes % (A) 10.2 %; NRBC Per 100 WBC 0 X 10*3/uL (0.00-0.01); Neutrophils % (A) 49.5 %; Platelet Count 198 X 10*3/uL (140-440); RBC 5.05 X 10*6/uL (4.40-5.60); WBC 6.06 X 10*3/uL (4.50-10.00)
== END | disposition home or self-care (01) ==
LOC: LABWHC1 08:31
PROVIDERS: ATTEND Orthopaedic Surgery
DX: Z01.812 Encounter for preprocedural laboratory examination (principal); Z22.322 Carrier or suspected carrier of Methicillin resistant Staphylococcus aureus; M17.12 Unilateral primary osteoarthritis, left knee; I51.7 Cardiomegaly; R94.31 Abnormal electrocardiogram [ECG] [EKG]
CPT/HCPCS: 80048; 85025; 87070; 93005

== ENCOUNTER → 2022-11-04 | Outpatient (CLI) | payer OTHER ==
[2022-11-04 17:39] LABS: INR <0.93 sec (0.93-1.11); Prothrombin Time 10.1 sec (9.9-11.9)
== END | disposition home or self-care (01) ==
LOC: LABPAT 10:20
PROVIDERS: ATTEND Orthopaedic Surgery
DX: Z01.812 Encounter for preprocedural laboratory examination (principal); Z22.322 Carrier or suspected carrier of Methicillin resistant Staphylococcus aureus; M17.12 Unilateral primary osteoarthritis, left knee
CPT/HCPCS: 85610

== ENCOUNTER 2022-11-30 05:39 | Observation (INO) | payer OTHER ==
[2022-11-23 09:23] VITALS: BMI 29.9
[~2022-11-30 05:39] MED LIST changes: +ACETAMINOPHEN TAB 500 MG TAB PO PRN; -LIDOCAINE 1% (10MG/ML) FOR IV START INTRADERMA PRN; +MELOXICAM 7.5 MG TAB PO PRN; -MIDAZOLAM 2 MG/2 ML VIAL IV PRN; +TRANEXAMIC 1,000 MG/100ML-NACL 1,000 MG in SALINE 1 100ML.BAG IVPB PRN
[2022-11-30] MEDS ORDERED: DEXAMETHASONE SOD PHOSPHATE 4 MG/ML 1 ML VIAL IV ONE (06:01)
[2022-11-30] MEDS ORDERED: LACTATED RINGERS 1,000 ML IV SCH (06:01)
[2022-11-30] MEDS ORDERED: LIDOCAINE 1% (10MG/ML) FOR IV START INTRADERMA PRN (06:01)
[2022-11-30] MEDS ORDERED: droPERidol 5 MG/2 ML VIAL IVP PRN (06:01)
[2022-11-30] MEDS ORDERED: ONDANSETRON 4 MG/2 ML VIAL IVP ONE (06:01)
[2022-11-30] MEDS ORDERED: LACTATED RINGERS 1,000 ML IV ONE ×2 (06:33→08:47)
[2022-11-30] MEDS ORDERED: MIDAZOLAM 2 MG/2 ML VIAL IVP ONE (07:03)
[2022-11-30] MEDS ORDERED: fentaNYL (PF) 50 MCG/ML 2 ML AMP IVP ONE (07:03)
[2022-11-30] MEDS ORDERED: PHENYLEPHRINE-0.9% NACL SYG 1,000 MCG/10 ML SYRINGE ONE (07:18)
[2022-11-30] MEDS ORDERED: MIDAZOLAM 2 MG/2 ML VIAL ONE (07:18)
[2022-11-30] MEDS ORDERED: PROPOFOL 10 MG/ML 20 ML VIAL IV ONE (07:18)
[2022-11-30] MEDS ORDERED: TRANEXAMIC 1,000 MG/100ML-NACL PREMIX BAG ONE (07:18)
[2022-11-30] MEDS ORDERED: SODIUM CHLORIDE 0.9% (PF) 10 ML VIAL ONE (07:18)
[2022-11-30] MEDS ORDERED: fentaNYL (PF) 50 MCG/ML 2 ML AMP ONE (07:18)
[2022-11-30] MEDS ORDERED: ROPIVACAINE 5 MG/ML 30 ML VIAL ONE (07:18)
--- NOTE | 2022-11-30 07:35 | HP ---
HISTORY AND PHYSICAL DATE OF SURGERY: 11/30/2022. HISTORY OF PRESENT ILLNESS: Kacie Jade is a 52-year-old patient seen with symptomatic left knee osteoarthritis, failing conservative treatment measures. After discussing options, the patient elected to proceed with left total knee arthroplasty. Consent was obtained. PAST MEDICAL HISTORY: Hypertension, hyperlipidemia. PAST SURGICAL HISTORY: Foot surgery. DAILY MEDICATIONS: Amlodipine, atorvastatin, benazepril, carvedilol. ALLERGIES: None. SOCIAL HISTORY: He smokes cigars. PHYSICAL EVALUATION OF THE LEFT KNEE: Range of motion is -3/4 to 115 degrees. There is a mild effusion present. Tenderness along the medial joint line. Crepitus along the medial patellofemoral compartments with range of motion. Pain with patellofemoral compression. Ligaments stable. Hip rotation without pain. Distal neurovascular exam is intact. RADIOGRAPHS: Radiographs of the left knee revealed severe patellofemoral compartment osteoarthritis. IMPRESSION: 1. Left knee osteoarthritis. 2. Hypertension. 3. Hyperlipidemia. PLAN: Left total knee arthroplasty. MMODL / IJN: [id number] /
[2022-11-30] MEDS ORDERED: ceFAZolin 1,000 MG in SODIUM CHLORIDE 0.9% 1,000 ML IRRIGATION ONE (07:54)
--- NOTE | 2022-11-30 09:02 | P.OP ---
Date of Procedure: 11/30/22 Preoperative Diagnosis: Left knee osteoarthritis Postoperative Diagnosis: Left knee osteoarthritis Procedure(s) Performed: Left total knee arthroplasty Implants: 1. Depuy attune size 8 left cruciate retaining cemented femur 2. Depuy attune size 8 fixed bearing cemented tibial baseplate 3. Depuy attune size 8 fixed bearing cruciate retaining 8mm polyethylene tibial insert 4. Depuy attune 41 mm all polyethylene cemented patella Anesthesia: regional (Adductor canal catheter, Ipack block), spinal Surgeon: Morgan Peraza Muffler Hand #1: Cristo Méndez Estimated Blood Loss (ml): 30 Pathology: none sent Condition: stable Disposition: PACU Indications for Procedure: 52-year-old patient seen with symptomatic left knee osteoarthritis. After treatment options were discussed, patient elected to proceed with left total kn ee arthroplasty. Operative Findings: See description of procedure Description of Procedure: Patient was taken to the operative suite after having an adductor canal catheter placed by the department of anesthesia. Patient underwent a spinal anesthetic by the department of anesthesia. Patient was given preoperative IV intake antibiotics and TXA. A well-padded tourniquet was placed about the left lower extremity. The lower extremity was then prepped and draped in the normal sterile orthopedic fashion. The extremity was elevated, a tourniquet was insufflated to 300. A standard anterior incision was made sharply through skin. Dissection was taken down through the subcutaneous soft tissues down to the extensor mechanism. A medial arthrotomy was performed, patella was everted and knee was flexed. There was advanced osteoarthritis noted. I introduced my distal intramedullary femoral drill. I then introduced the distal femoral cutti ng jig. Jean REA secured the cutting jig with 2 pins. I held retractors in position while Jean REA performed the distal femoral resection through the guide area we now removed her distal femoral cutting guide. We now placed our 4-in-1 femoral cutting block and positioned and it was secured with 2 pins by Jean REA while I held the block in position. The distal femoral finishing was now completed. A proximal tibial cutting guide was positioned. I held the guide in the appropriate position with both hands well Jean REA inserted stabilizing pins into the guide. Proximal tibial cut was made. We now placed a trial femoral component into position, along with an appropriate size tibial tray and insert. We now took the knee through range of motion and had full extension good flexion and good overall soft tissue balance noted. The patella was everted and stabilized with 2 towel clips held by Jean REA while I performed a flush with patellar quad tendon utilizing a fresh sawblade. We templated the patella, appropriate drill holes were made. An appropriate trial patella was positioned, knee was taken through full range of motion with the patella tracking very nicely. The trial patella was removed. Drill holes were made through the femoral component. All trial components were removed after marking off the appropriate rotation of the tibia. Retractors were now positioned along the proximal tibia. An appropriate keel punch was made with the appropriate size tibial guide by myself on Jean REA assisted by holding retractors. At this point appropriate size implants were chosen and opened. The joint was irrigated copiously with pulse lavage mechanical irrigation. The wound was irrigated with pulse lavage mechanical irrigation. We mixed antibiotic methylmethacrylate. We placed the knee into flexion. We placed multiple retractors assisted by Jean REA to expose the proximal tibia. Once the methyl methacrylate was ready, the tibial component was cemented into place removing any excess methylmethacrylate form by both myself and Jean REA. The femoral component was cemented into place removing the removing any excess methylmethacrylate performed by both myself and Jean REA. We then inserted the appropriate size polyethylene tibial insert. We made sure that it was locked into position. We took the knee into full extension, and then back in a flexion making sure we had removed any excess methylmethacrylate. The patellar component was then cemented down and secured with clamp. Excess methylmethacrylate removed. We kept the knee in full extension, patellar clamp in position until methylmethacrylate had hardened. Once it had hardened the patellar clamp was removed. The knee was taken through full range of motion. The patella tracked nicely. There was good soft tissue balancing. The tourniquet was now released. Additional hemostasis was achieved via electrocautery. A second gram of TXA was given. The wound again was irrigated with pulse lavage mechanical irrigation. The extensor mechanism was repaired with Ethibond suture. We checked the repair with range of motion and it was stable. The subcutaneous soft tissues were repaired with Vicryl in layers. The skin was approximated with pernio/Dermabond. Sterile dressings were applied followed by loose web roll and Vaibhav bandage. The patient was transferred to a bed, and taken to recovery in stable and satisfactory condition. Jean REA assisted with this complex procedure.
[2022-11-30] MEDS ORDERED: NALOXONE 0.4 MG/ML 1 ML VIAL IV PRN (09:03)
[2022-11-30] MEDS ORDERED: HYDROcodone/APAP 5-325MG 1 EACH TAB PO PRN (09:03)
[2022-11-30] MEDS ORDERED: HYDROmorphone 0.5 MG/0.5 ML SYRINGE IVP PRN (09:03)
[2022-11-30] MEDS ORDERED: ONDANSETRON 4 MG/2 ML VIAL IVP PRN (09:03)
[2022-11-30] MEDS ORDERED: ROPIVACAINE 1,100 MG, SODIUM CHLORIDE 0.9% 500 ML 330 ML, EMPTY PAIN BALL 1 EACH MISCELLANE PRN ×2 (09:37)
--- NOTE | 2022-11-30 09:45 | XR ---
Two-view left knee. DATE: 11/30/2022. COMPARISON: None available. Clinical history: Upper left knee. IMPRESSION: Surgical changes of a left total knee arthroplasty are seen which appears anatomically aligned. There is some air and fluid within the joint space which is compatible with recent surgery. There is no other acute osseous abnormality identified.
--- NOTE | 2022-11-30 10:46 | P.ANPRN ---
Procedure Note - Anesthesia - Nerve Block Performed Left iPack Single Time Out Performed: Yes (702) Date of Procedure: 11/30/22 Procedure Start Time: : Procedure Stop Time: :13 Location of Patient: PreOp Indication: Acute Post-Operative Pain, Requested by Surgeon Specifically requested for management of pain by DrRajesh: Morgan Peraza Sedation Type: Sedate with meaningful contact maintained Preparation: Sterile Prep Position: Supine Catheter: None Needle Types: Pajunk Needle Gauge: 21 Ultrasound used to visualize needle placement: Yes Ultrasound used to observe medication spread: Yes Injectate: 0.5% Ropivacaine (see comment for volume) (15CC +5CC NACL PF) Blood Aspirated: No Pain Paresthesia on Injection Noted: No Resistance on Injection: Normal Image Stored and Saved: Yes Events: Uneventful and Well Tolerated
--- NOTE | 2022-11-30 10:46 | P.ANPRN ---
Procedure Note - Anesthesia - Nerve Block Performed Left Adductor Canal Infusion Time Out Performed: Yes (702) Date of Procedure: 11/30/22 Procedure Start Time: 07:03 Procedure Stop Time: 07:08 Location of Patient: PreOp Indication: Acute Post-Operative Pain, Requested by Surgeon Specifically requested for management of pain by DrRajesh: Morgan Peraza Sedation Type: Sedate with meaningful contact maintained Preparation: Sterile Prep, Sterile Dressing Position: Supine Catheter Depth at Skin (cm): 8 Catheter: Indwelling Needle Types: Pajunk Needle Gauge: 18 Ultrasound used to visualize needle placement: Yes Ultrasound used to observe medication spread: Yes Injectate: 0.5% Ropivacaine (see comment for volume) (15CC + 5CC NACL PF) Blood Aspirated: No Pain Paresthesia on Injection Noted: No Resistance on Injection: Normal Image Stored and Saved: Yes Events: Uneventful and Well Tolerated
[2022-11-30] MEDS: HYDROmorphone 0.5 MG/0.5 ML SYRINGE IVP PRN ×3 (11:46→16:24)
[2022-11-30] MEDS: HYDROmorphone 1 MG/ML 1 ML SYRINGE IVP PRN ×3 (14:04→23:42)
[2022-11-30] MEDS: HYDROcodone/APAP 7.5-325MG 1 EACH TAB PO PRN (15:03)
--- NOTE | 2022-11-30 16:34 | P.CONS ---
History of Present Illness - Reason for Consult Consult date: 11/30/22 Medical Management Requesting physician: Morgan Peraza - History of Present Illness History of Presenting Illness: Patient is a very pleasant 52-year-old male with a past medical history of hypertension, hyperlipidemia, osteoarthritis, and COPD with continued nicotine dependence. He is currently admitted under orthopedic surgery team status post elective left total knee arthroplasty. We have been consulted for medical management throughout patient's hospitalization. Patient seen and fully evaluated at bedside. He reports mild postsurgical pain, but states it is c urrently controlled. Patient is tolerating a heart healthy diet currently and denies having any postoperative nausea or vomiting. Patient reports urinating without any difficulties since procedure. Movement and sensation of left foot intact. Patient has been moving knee without difficulties. Ambulating with assistance and walker to restroom. Denies any history of DVTs or PEs. Review of systems: Pertinent positives and negatives as discussed in HPI, a complete review of systems was performed and all other systems are negative. Physical exam: Vital signs reviewed and stable. General: Nontoxic, no distress and appears stated age. Derm: Skin warm and dry, normal coloration for ethnicity. Head: Atraumatic, normocephalic and symmetric. Eyes: EOMs intact, no lid lag, and anicteric sclera Mouth: no lip lesions, mucus membranes moist Cardiovascular: regular rate and rhythm with normal S1S2, no murmur, positive posterior tibial pulses bilaterally, and cap refill < 2 seconds. Lungs: Respirations even, regular, and unlabored on room air. Lungs with expiratory wheezes bilaterally and coarse cough upon assessment. No rhonchi, no rales, no wheezing, and no accessory muscle usage. Abdominal: soft, nontender to palpation, no guarding, no appreciable organomegaly Ext: Movement and sensation intact. No gross muscle atrophy, no edema, no contractures postoperative dressing/Vaibhav wrap in place to left lower extremity Neuro: Speech clear, face symmetrical and CN II-XII grossly intact with no noted focal neuro deficits Psych: Alert and oriented to person, place, time, and situation. Appropriate and pleasant affect. Assessment and Plan of Care: Status post left total knee arthroplasty Management per primary admitting orthopedic surgery team including DVT prophylaxis, pain management, wound/dressing care, PT/OT, and weightbearing. Patient currently DVT prophylaxis with Lovenox. Order placed for morning CBC, CMP, and magnesium. We will follow up with these results and place further orders as indicated. COPD with continued nicotine dependence Nicotine patch 21 mg daily. Patient encouraged on smoking cessation. Order placed for duo nebs every 2 hours as needed for shortness of breath and/or wheezing. Encourage use of incentive spirometry 10-15x hourly while awake. Hypertension -Home medications reviewed and reordered. Patient to continue with amlodipine 10 mg daily, benazepril 20 mg daily, carvedilol 6.25 mg twice daily, and chlorthalidone 25 mg daily. Hyperlipidemia Patient to continue daily medication regimen with atorvastatin 20 mg nightly. Data review: Vital signs reviewed and stable. Blood pressure 153/89, heart rate 89, respiratory rate 18, temp 97.6F, SpO2 100% on room air. Thank you for allowing us to participate in the care of this pleasant patient. Do not hesitate to contact us with questions. Someone can be reached from the [facility] group all hours of the day at [phone] or via [employer]. Patient was seen independently by Nurse Practitioner. This document was prepared using [employer] dictation software. Please allow for errors in seat joiner while rare they do occur. I reviewed the documentation as provided by the JESSICA above, who is the original author of this note. I agree with the documented assessment and plan, with the following changes: none Past Medical History Past Medical History: Hyperlipidemia, Hypertension, Osteoarthritis (OA) Additional Past Medical History / Comment(s): migraines History of Any Multi-Drug Resistant Organisms: None Reported Past Surgical History: Orthopedic Surgery Additional Past Surgical History / Comment(s): ACHILLES TENDON LEFT. RT/LT KNEE SURGERY. COLONOSCOPY Past Anesthesia/Blood Transfusion Reactions: No Reported Reaction Smoking Status: Current every day smoker - Past Family History Mother Family Medical History: No Reported History Medications and Allergies Home Medications Medication Instructions Recorded Confirmed Type Benazepril HCl 40 mg PO QAM 01/06/19 11/30/22 History amLODIPine [Norvasc] 10 mg PO QAM 01/06/19 11/30/22 History Atorvastatin Calcium 20 mg PO HS 02/26/22 11/30/22 History Chlorthalidone 25 mg PO DAILY 02/26/22 11/30/22 History carvediloL [Coreg] 6.25 mg PO BID 02/26/22 11/30/22 History HYDROcodone/APAP 5-325MG [[place] 1 tab PO Q6HR PRN #12 tab 07/02/22 11/30/22 Rx 5-325] Allergies Allergy/AdvReac Type Severity Reaction Status Date / Time No Known Allergies Allergy Verified 11/23/22 09:14 Physical Exam Osteopathic Statement: *. No significant issues noted on an osteopathic structural exam other than those noted in the History and Physical/Consult. Vitals: Vital Signs Temp Pulse Pulse Pulse Resp BP Pulse Ox 11/30/22 16:00 97.6 F 89 18 153/89 100 11/30/22 14:15 91 16 133/87 97 11/30/22 13:15 85 16 118/66 97 11/30/22 12:15 79 16 120/77 97 11/30/22 11:45 76 16 119/84 100 11/30/22 11:15 70 16 110/78 100 11/30/22 11:00 73 16 115/78 100 11/30/22 10:45 69 16 105/70 99 11/30/22 10:30 68 16 112/72 99 11/30/22 10:15 64 16 104/69 96 11/30/22 10:05 70 16 104/69 96 11/30/22 09:51 63 16 95/58 100 11/30/22 09:36 74 18 84/51 100 11/30/22 09:21 97 F L 76 16 89/56 95 11/30/22 07:17 71 16 107/74 99 11/30/22 06:33 98 F 87 18 125/80 99 Intake and Output 11/30/22 11/30/22 11/30/22 06:59 14:59 22:59 Intake Total 100 951 800 Output Total 30 350 Balance 100 921 450 Intake: IV 100 951 800 Output: Urine 350 Estimated Blood Loss 30 Other: Weight 97.6 kg Results CBC & Chem 7: 12/01/22 04:32 12/01/22 04:32
[2022-11-30] MEDS: carvediloL 6.25 MG TAB PO SCH (17:37)
[2022-11-30] MEDS ORDERED: IPRATROPIUM-ALBUTEROL 3 ML NEB INHALATION PRN (18:59)
[2022-11-30] MEDS: ENOXAPARIN 30 MG/0.3 ML SYRINGE SQ SCH (20:00)
[2022-11-30] MEDS: LACTATED RINGERS 1,000 ML IV SCH (20:00)
[2022-11-30] MEDS: ATORVASTATIN 20 MG TAB PO SCH (20:13)
[2022-11-30] MEDS: NICOTINE 21MG/24HR PATCH TRANSDERM SCH (20:13)
[2022-11-30] MEDS: SENNOSIDES-DOCUSATE SODIUM 1 EACH TAB PO SCH (20:13)
[2022-12-01] MEDS: LACTATED RINGERS 1,000 ML IV SCH ×4 (01:18→22:38)
[2022-12-01] MEDS: HYDROcodone/APAP 7.5-325MG 1 EACH TAB PO PRN ×4 (01:19→21:59)
[2022-12-01] MEDS: HYDROmorphone 1 MG/ML 1 ML SYRINGE IVP PRN ×2 (02:53→06:20)
[2022-12-01] MEDS: ENOXAPARIN 30 MG/0.3 ML SYRINGE SQ SCH ×2 (08:20→21:59)
[2022-12-01] MEDS: NICOTINE 21MG/24HR PATCH TRANSDERM SCH (08:20)
[2022-12-01] MEDS: carvediloL 6.25 MG TAB PO SCH ×2 (08:20→16:48)
[2022-12-01] MEDS: CHLORTHALIDONE 25 MG TAB PO SCH (08:20)
[2022-12-01] MEDS: lisinopriL 20 MG TAB PO SCH (08:20)
[2022-12-01] MEDS: amLODIPine 10 MG TAB PO SCH (08:20)
--- NOTE | 2022-12-01 08:58 | P.PN ---
Progress Note - Text Progress Note Date: 12/01/22 patient was seen and evaluated at bedside. Status post postoperative day 1 for left total knee arthroplasty patient had adductor canal catheter for postop pain control. Patient rated pain at rest 4 out of 10 in severity. Patient describes pain is aching, throbbing type on the sides of the knee and back of the knee. Patient started walking with support. With activity patient pain levels are 7 out of 10 in severity. With the help of oral pain medications pain levels are tolerable. Patient denied any weakness/ numbness in lower extremities. patient denied any fever, pain over the catheter site. Physical exam: Patient vital signs stable Patient is alert awake oriented 3 responding to all questions appropriately Examination of the catheter site showed dressing intact, no leaking fluid around the catheter, no redness, no tenderness over the catheter insertion area. plan: status post postoperative day 1 for left side total knee arthroplasty with adductor canal catheter for pain control. Patient was discussed to continue the medication until the pump is completely empty and instructed the patient how to discontinue the catheter.
[2022-12-01 09:11] LABS: Basophils # (A) 0.03 X 10*3/uL (0.00-0.10); Basophils % (A) 0.3 %; Eosinophils # (A) 0.03 X 10*3/uL (0.04-0.35); Eosinophils % (A) 0.3 %; HCT 46.6 % (39.6-50.0); HGB 14.6 d/dL (13.0-17.0); Lymphocytes % (A) 14.9 %; MCH 28.4 pg (27.0-32.0); MCHC 31.3 d/dL (32.0-37.0); MCV 90.7 FL (80.0-97.0); Mean Platelet Volume 10.9 FL (9.5-12.2); Monocytes # (A) 1.11 X 10*3/uL (0.20-1.00); NRBC Per 100 WBC 0 X 10*3/uL (0.00-0.01); Neutrophils # (A) 7.37 X 10*3/uL (1.80-7.70); Neutrophils % (A) 73.2 %; Platelet Count 184 X 10*3/uL (140-440); RBC 5.14 X 10*6/uL (4.40-5.60); RDW 14.2 % (11.5-14.5); WBC 10.07 X 10*3/uL (4.50-10.00)
[2022-12-01 09:18] LABS: ALT 13 U/L (10-49); AST 18 U/L (14-35); Albumin 4.3 d/dL (3.8-4.9); Albumin/Globulin Ratio 1.39 Ratio (1.60-3.17); Alkaline Phosphatase 48 U/L (41-126); Blood Urea Nitrogen 15.6 mg/dL (9.0-27.0); Calcium 9.5 mg/dL (8.7-10.3); Chloride 96 mmol/L (96-109); Globulin 3.1 d/dL (1.6-3.3); Glucose 95 mg/dL (70-110); Magnesium 1.8 mg/dL (1.5-2.4); Potassium 3.8 mmol/L (3.5-5.5); Sodium 134 mmol/L (135-145); Total Bilirubin 0.4 mg/dL (0.3-1.2); Total Protein 7.4 d/dL (6.2-8.2)
[2022-12-01] MEDS: HYDROmorphone 0.5 MG/0.5 ML SYRINGE IVP PRN (12:20)
--- NOTE | 2022-12-01 13:39 | P.PN ---
Subjective Progress Note Date: 12/01/22 Principal diagnosis: Status post left total knee arthroplasty Patient evaluated today at bedside, he is resting in his hospital chair. He is having lunch and tolerating it well. He's been urinating with no difficulties. He denies headaches, lightheadedness, chest pain or shortness of breath. Patient was able to ambulate with therapy, he was able to do the stairs but was very difficult. He is having some excess pain requiring IV medication. Objective - Vital Signs Vital signs: Vital Signs Temp 98.6 F 12/01/22 07:58 Pulse 100 12/01/22 07:58 Resp 15 12/01/22 07:58 BP 161/97 12/01/22 07:58 Pulse Ox 96 12/01/22 07:58 FiO2 Intake & Output 11/30/22 12/01/22 12/01/22 18:59 06:59 18:59 Intake Total 2501 Output Total 380 1250 500 Balance 2121 -1250 -500 Weight 97.6 kg Intake: IV 1751 Intake, IV Titration 350 Amount Lactated Ringers 1,000 ml 300 @ 100 mls/hr IV .Q10H [facility] Rx#:[id number] ceFAZolin 2 gm In Sodium 50 Chloride 0.9% 50 ml @ 100 mls/hr IVPB Q8HR [facility] Rx# :[id number] Oral 400 Output: Urine 350 1250 500 Estimated Blood Loss 30 Other: Voiding Method Toilet # Voids 2 1 - Exam Left lower extremity: Incision is clean, dry, and intact. The foam dressing is in good condition. There is minimal soft tissue swelling and ecchymosis surrounding the medial and lateral aspects of the incision. Calf is soft, no tenderness with palpation. Plantar flexion, dorsiflexion, EHL, FHL are intact. Sensory exam to light touch throughout the extremity is intact, dorsal pedis pulses 2+. - Labs CBC & Chem 7: 12/01/22 04:32 12/01/22 04:32 Labs: Abnormal Lab Results - Last 24 Hours (Table) 12/01/22 12/01/22 Range/Units 04:32 04:32 WBC 10.07 H (4.50-10.00) X 10*3/uL MCHC 31.3 L (32.0-37.0) d/dL Monocytes # 1.11 H (0.20-1.00) X 10*3/uL Eosinophils # 0.03 L (0.04-0.35) X 10*3/uL Sodium 134 L (135-145) mmol/L Anion Gap 13.00 H (4.00-12.00) mmol/L Albumin/Globulin Ratio 1.39 L (1.60-3.17) Ratio Assessment and Plan Assessment: Postoperative day #1 status post left total knee arthroplasty Plan: Pain control, continue with oral medication and IV for severe pain DVT prophylaxis, continue subcu medication Wound care instructions discussed, this including bandaging instructions and icing and elevating Encourage incentive spirometer Continue PT/OT, weight-bear as tolerated with walker Medical recommendations Discharge planning: Due to pain control issues, we'll keep patient in hospital additional night. Hopeful discharge to home with health care agency on 12/02/2022 Time with Patient: Less than 30
--- NOTE | 2022-12-01 15:44 | P.PN ---
Subjective Progress Note Date: 12/01/22 Hospital Course: Patient is a very pleasant 52-year-old male with a past medical history of hypertension, hyperlipidemia, osteoarthritis, and COPD with continued nicotine dependence. He is currently admitted under orthopedic surgery team status post elective left total knee arthroplasty. We have been consulted for medical management throughout patient's hospitalization. Physical exam: Vital signs reviewed and stable. General: Nontoxic, no distress and appears stated age. Derm: Skin warm and dry, normal coloration for ethnicity. Head: Atraumatic, normocephalic and symmetric. Eyes: EOMs intact, no lid lag, and anicteric sclera Mouth: no lip lesions, mucus membranes moist Cardiovascular: regular rate and rhythm with normal S1S2, no murmur, positive posterior tibial pulses bilaterally, and cap refill < 2 seconds. Lungs: Respirations even, regular, and unlabored on room air. Lungs with expiratory wheezes bilaterally and coarse cough upon assessment. No rhonchi, no rales, no wheezing, and no accessory muscle usage. Abdominal: soft, nontender to palpation, no guarding, no appreciable organomegaly Ext: Movement and sensation intact. No gross muscle atrophy, no edema, no contractures postoperative dressing/Vaibhav wrap in place to left lower extremity Neuro: Speech clear, face symmetrical and CN II-XII grossly intact with no noted focal neuro deficits Psych: Alert and oriented to person, place, time, and situation. Appropriate and pleasant affect. Assessment and Plan of Care: Status post left total knee arthroplasty Management per primary admitting orthopedic surgery team including DVT prophylaxis, pain management, wound/dressing care, PT/OT, and weightbearing. Patient currently DVT prophylaxis with Lovenox. Postoperative labs reviewed. CBC showing mild leukocytosis with WBC count of 10.07 and a stable postoperative hemoglobin of 14.6. BMP showing mild hyponatremia sodium of 134 and a slightly elevated anion gap 13. Magnesium normal findings at 1.8. Liver profile was unremarkable. COPD with continued nicotine dependence Nicotine patch 21 mg daily. Patient encouraged on smoking cessation. Order placed for duo nebs every 2 hours as needed for shortness of breath and/or wheezing. Encourage use of incentive spirometry 10-15x hourly while awake. Hypertension -Home medications reviewed and reordered. Patient to continue with amlodipine 10 mg daily, benazepril 20 mg daily, carvedilol 6.25 mg twice daily, and chlorthalidone 25 mg daily. Hyperlipidemia Patient to continue daily medication regimen with atorvastatin 20 mg nightly. Data review: Postoperative labs reviewed. CBC showing mild leukocytosis with WBC count of 10.07 and a stable postoperative hemoglobin of 14.6. BMP showing mild hyponatremia sodium of 134 and a slightly elevated anion gap 13. Magnesium normal findings at 1.8. Liver profile was unremarkable. Vital signs reviewed. Blood pressure is slightly elevated this morning at 161/97 with heart rate of 100, respiratory rate 15, temp 98.6F, SpO2 of 96% on room air. Elevated blood pressure possibly secondary to patient's reports of uncontrolled pain. Morning medications being given at this time including amlodipine 10 mg, carvedilol 6.25 mg, and chlorthalidone 25 mg. Discussed plan of care with orthopedic surgery planning to keep patient an additional day for pain management prior to discharge home with homecare. Patient is cleared from a medical perspective for discharge with no further recommendations at this time. Patient may be discharged home once cleared by primary admitting orthopedic surgery team. Thank you for allowing us to participate in the care of this pleasant patient. Do not hesitate to contact us with questions. Someone can be reached from the [facility] hospitalist group all hours of the day at [phone] or via [employer]. Patient was seen independently by Nurse Practitioner. This document was prepared using [employer] dictation software. Please allow for errors in arts administrator or manager while rare they do occur. I reviewed the documentation as provided by the JESSICA above, who is the original author of this note. I agree with the documented assessment and plan, with the following changes: none Objective - Vital Signs Vital signs: Vital Signs Temp 98.4 F 12/01/22 02:00 Pulse 89 12/01/22 02:00 Resp 17 11/30/22 19:59 BP 146/94 12/01/22 02:00 Pulse Ox 98 12/01/22 02:00 FiO2 Intake & Output 11/30/22 12/01/22 12/01/22 18:59 06:59 18:59 Intake Total 2501 Output Total 380 1250 Balance 2121 -1250 Weight 97.6 kg Intake: IV 1751 Intake, IV Titration 350 Amount Lactated Ringers 1,000 ml 300 @ 100 mls/hr IV .Q10H [facility] Rx#:[id number] ceFAZolin 2 gm In Sodium 50 Chloride 0.9% 50 ml @ 100 mls/hr IVPB Q8HR [facility] Rx# :[id number] Oral 400 Output: Urine 350 1250 Estimated Blood Loss 30 Other: Voiding Method Toilet # Voids 2 1 - Labs CBC & Chem 7: 12/01/22 04:32 12/01/22 04:32
[2022-12-01] MEDS: SENNOSIDES-DOCUSATE SODIUM 1 EACH TAB PO SCH (21:59)
[2022-12-01] MEDS: ATORVASTATIN 20 MG TAB PO SCH (21:59)
[2022-12-02] MEDS: carvediloL 6.25 MG TAB PO SCH (06:30)
[2022-12-02] MEDS: HYDROcodone/APAP 7.5-325MG 1 EACH TAB PO PRN ×2 (06:30→12:10)
[2022-12-02 07:57] VITALS: BP 128/90; PULSE 103; RESP 18; TEMP 99.1
[2022-12-02] MEDS: CHLORTHALIDONE 25 MG TAB PO SCH (08:09)
[2022-12-02] MEDS: lisinopriL 20 MG TAB PO SCH (08:09)
[2022-12-02] MEDS: ENOXAPARIN 30 MG/0.3 ML SYRINGE SQ SCH (08:09)
[2022-12-02] MEDS: amLODIPine 10 MG TAB PO SCH (08:09)
[2022-12-02] MEDS: NICOTINE 21MG/24HR PATCH TRANSDERM SCH (08:09)
--- NOTE | 2022-12-02 10:46 | P.PN ---
Subjective Progress Note Date: 12/02/22 Patient is a 52-year-old male with hypertension, dyslipidemia, osteoarthritis, and chronic nicotine dependency who presented for elective left total knee arthroplasty. He tolerated the procedure well without any immediate postoperative complications. His discharge was held on 12/01/22 due to uncontrolled pain. Patient seen and examined at bedside. Feeling better than yesterday and pain is better controlled. He denies any chest pain, shortness breath, nausea, vomiting, lightheadedness, dizziness. Vital signs reviewed General: nontoxic, no distress, appears at stated age Cardiovascular: S1S2 reg, no murmur, positive posterior tibial pulse bilateral, Lungs: CTA bilateral, no rhonchi, no rales , no accessory muscle use Ext: no gross muscle atrophy, no edema b/l lower extremities, no contractures, dressing in place over left knee Neuro: CN II-XI grossly intact, no focal neuro deficits Psych: Alert, oriented, appropriate affect Assessment/Plan: 52-year-old male status post left total knee arthroplasty Hypertension -Norvasc 10 mg daily, Benzapril 20 mg daily, Coreg to 6.25 mg twice daily, chlorthalidone 25 mg daily Dyslipidemia -Atorvastatin 20 mg nightly Nicotine dependency -Encourage cessation with patient -Patient medically optimized for discharge at the discretion of orthopedic surgery. Home med reconciliation addressed for discharge. Imaging: None new Data Review: Vitals reviewed in systolic blood pressure ranging 120s to 140s T-max last 24 hours 99.1 No new labs for review Thank you for allowing us to participate in the care of this pleasant patient. Do not hesitate to contact us with questions. Someone can be reached from the [facility] [place]Note 2[facility] hospitalist group all hours of the day at [phone] or via [employer]. This dictation was prepared using [employer] voice recognition software. Though every attempt is made to correct errors during dictation some may still exist. Objective - Vital Signs Vital signs: Vital Signs Temp 99.1 F 12/02/22 07:31 Pulse 103 H 12/02/22 07:31 Resp 18 12/02/22 07:31 BP 128/90 12/02/22 07:31 Pulse Ox 96 12/02/22 07:31 FiO2 Intake & Output 12/01/22 12/02/22 12/02/22 18:59 06:59 18:59 Intake Total 1080 Output Total 1100 1510 Balance -20 -1510 Intake: Oral 1080 Output: Urine 1100 1510 Other: Voiding Method Toilet - Labs CBC & Chem 7: 12/01/22 04:32 12/01/22 04:32
--- NOTE | 2022-12-02 12:13 | P.PN ---
Subjective Progress Note Date: 12/02/22 Principal diagnosis: Status post left total knee arthroplasty Patient evaluated today at bedside, he is resting in his hospital chair. He denies headaches, lightheadedness, chest pain or shortness of breath. Patient was able to ambulate a little bit better with physical therapy today, the pain is better controlled. Objective - Vital Signs Vital signs: Vital Signs Temp 99.1 F 12/02/22 07:31 Pulse 103 H 12/02/22 07:31 Resp 18 12/02/22 07:31 BP 128/90 12/02/22 07:31 Pulse Ox 96 12/02/22 07:31 FiO2 Intake & Output 12/01/22 12/02/22 12/02/22 18:59 06:59 18:59 Intake Total 1080 Output Total 1100 1510 Balance -20 -1510 Intake: Oral 1080 Output: Urine 1100 1510 Other: Voiding Method Toilet - Exam Left lower extremity: Incision is clean, dry, and intact. The foam dressing is in good condition. There is minimal soft tissue swelling and ecchymosis surrounding the medial and lateral aspects of the incision. Calf is soft, no tenderness with palpation. Plantar flexion, dorsiflexion, EHL, FHL are intact. Sensory exam to light touch throughout the extremity is intact, dorsal pedis pulses 2+. - Labs CBC & Chem 7: 12/01/22 04:32 12/01/22 04:32 Assessment and Plan Assessment: Postoperative day #2 status post left total knee arthroplasty Plan: Pain control, plan for discharge on both [place] and [place] DVT prophylaxis, aspirin 81 mg twice a day for 30 days Wound care instructions discussed, this including bandaging instructions and icing and elevating Encourage incentive spirometer Continue PT/OT, weight-bear as tolerated with walker Medical recommendations Discharge planning: Discharge home today Time with Patient: Less than 30
--- NOTE | 2022-12-02 12:19 | P.DS ---
Providers Date of admission: 11/30/22 09:04 Expected date of discharge: 12/02/22 Attending physician: Morgan Peraza Consults: 11/30/22 09:03 Consult Physician Routine Consulting Provider: Darryl Mcpherson Consult Reason/Comments: Medical management Do you want consulting provider notified?: Yes Primary care physician: [facility] Hospital Course: Date of admission: 11/30/2022 Date of discharge: 12/02/2022 Admission diagnosis: Status post left total knee arthroplasty Discharge diagnosis: Same Attending physician: Dr. Peraza Surgical procedures: Left total knee arthroplasty Brief history: Patient is a 52-year-old male with a history of progressive primary left knee osteoarthritis. At this point patient has failed conservative treatment measures and has opted to proceed with a elective left total knee arthroplasty. Hospital course: Details of patient's surgery can be found in operative report. Patient tolerated the procedure well and was subsequently transported to orthopedic floor. Patient's orthopeidc and medical care was provided daily. Patient had daily laboratory tests performed for evaluation of overall blood counts. Patient had daily physical therapy to include strengthening range of motion as well as education with walker ambulation. Patient was treated with Lovenox for their postoperative DVT prophylaxis during their inpatient stay. Patient was noted to have a relatively uneventful postoperative course. Patient reported satisfactory pain control with oral pain medications by postoperative day 2. Patient showed satisfactory progress with physical therapy. Patient moved steadily through the program and had no difficulty meeting the goals by postoperative day 2. Given patient's otherwise satisfactory course and having met physical therapy goals, plan is to discharge patient home on postoperative day 2. Discharge condition/disposition: Patient will be discharged home in stable condition. Discharge medications: Instructions are given on resumption of patient's normal daily medications per primary care recommendation, in addition patient will be prescribed [place] 7.5 mg/325 mg, Lyrica 75 mg, senna S, aspirin 81 mg. Discharge instructions: 1. Wound care and infection precautions, keep incision dry and covered while showering, no lotions, creams, moisturizers. No soaking, tubs, pools, hottubs. Do not scrub over the incision. 2. Weight-bear as tolerated with walker / cane until follow-up. 3. Ice and elevate when necessary. Do not exceed 20 minutes per hour with ice pack. 4. Utilize compression sleeve until seen at first follow up appointment. 5. Visiting nursing care. 6. Home physical therapy including home CPM. 7. Pain meds and anticoagulants per prescription. 8. Pain medication has potential to cause constipation. Increase oral fluid and fiber intake. Contact primary care provider if you have not had a bowel movement within 48 hours after discharge 9. No anti-inflammatory medication until discussed at first post operative visit, this including Motrin, Aleve, Mobic, Diclofenac. 10. Follow up in office at 2 weeks postop with Jean Méndez PA-C/Domo Garces 11. Follow up with your primary care doctor 7-10 days after discharge. 12. Contact [facility] with any questions, . Procedures: Left total knee arthroplasty Patient Condition at Discharge: Good Plan - Discharge Summary Discharge Rx Participant: Yes New Discharge Prescriptions: New Aspirin [Adult Low Dose Aspirin EC] 81 mg PO BID #60 tab Pregabalin [Lyrica] 75 mg PO BID 14 Days #21 cap HYDROcodone/APAP 7.5-325MG [[place] 7.5] 1 each PO Q6HR PRN #28 tab PRN Reason: Pain Sennosides/Docusate Sodium [Senna-S 8.6-50 mg Tablet] 2 each PO DAILY PRN #30 tablet PRN Reason: Constipation Continue amLODIPine [Norvasc] 10 mg PO QAM Benazepril HCl 40 mg PO QAM carvediloL [Coreg] 6.25 mg PO BID Atorvastatin Calcium 20 mg PO HS Chlorthalidone 25 mg PO DAILY No Action HYDROcodone/APAP 5-325MG [[place] 5-325] 1 tab PO Q6HR PRN #12 tab PRN Reason: Pain Discharge Medication List Benazepril HCl 40 mg PO QAM 01/06/19 [History] amLODIPine [Norvasc] 10 mg PO QAM 01/06/19 [History] Atorvastatin Calcium 20 mg PO HS 02/26/22 [History] Chlorthalidone 25 mg PO DAILY 02/26/22 [History] carvediloL [Coreg] 6.25 mg PO BID 02/26/22 [History] HYDROcodone/APAP 5-325MG [[place] 5-325] 1 tab PO Q6HR PRN #12 tab 07/02/22 [Rx] Aspirin [Adult Low Dose Aspirin EC] 81 mg PO BID #60 tab 12/02/22 [Rx] HYDROcodone/APAP 7.5-325MG [[place] 7.5] 1 each PO Q6HR PRN #28 tab 12/02/22 [Rx] Pregabalin [Lyrica] 75 mg PO BID 14 Days #21 cap 12/02/22 [Rx] Sennosides/Docusate Sodium [Senna-S 8.6-50 mg Tablet] 2 each PO DAILY PRN #30 tablet 12/02/22 [Rx] Follow up Appointment(s)/Referral(s): [facility] [NON-STAFF] - 1-2 Days ([facility] will call you to schedule your in home nursing and physical therapy visits. ) Cristo Méndez, PAC [PHYSICIAN INDUSTRY SEGMENT SPECIALIST] - 12/18/22 9:40 am [facility],Clinic [Primary Care Provider] - 1 Week Activity/Diet/Wound Care/Special Instructions: Orthopedic Discharge Instructions: 1. Wound care and infection precautions, keep incision dry and covered while showering, no lotions, creams, moisturizers. No soaking, pools, hot tubs. Do not scrub over incision. 2. Weight-bear as tolerated with walker / cane until follow-up. 3. Ice and elevate when necessary. Do not exceed 20 minutes per hour with ice pack. 4. Utilize compression sleeve until seen at first follow up appointment. 5. Pain meds and anticoagulants per prescription. 6. Pain medication has potential to cause constipation. Increase oral fluid and fiber intake. Contact primary care provider if you have not had a bowel movement within 48 hours after discharge. 7. No anti-inflammatory medication until discussed at first post operative visit, this including Motrin, Aleve, Mobic, Diclofenac,. 8. Follow up in office at 2 weeks postop with Jean Méndez PA-C/Domo Beltrán PA-C 9. Follow up with your primary care doctor 7-10 days after discharge. 10. Contact [facility] with any questions, . Wound care instructions: 1. Okay to remove surgical dressing as of 12/07/2022 2. Okay to shower directly over the incision after removal of bandage Discharge Disposition: HOME WITH HOME HEALTH SERVICES
[2022-12-02] MEDS: LACTATED RINGERS 1,000 ML IV SCH (13:14)
== END 2022-12-02 16:08 | disposition home health service (06) ==
LOC: OR 05:39 → 4SSUR 09:04
PROVIDERS: ADMIT Orthopaedic Surgery; ATTEND Orthopaedic Surgery
DX: M17.12 Unilateral primary osteoarthritis, left knee (principal); G89.18 Other acute postprocedural pain; I10 Essential (primary) hypertension; J44.9 Chronic obstructive pulmonary disease, unspecified; E78.5 Hyperlipidemia, unspecified; G43.909 Migraine, unspecified, not intractable, without status migrainosus; F17.290 Nicotine dependence, other tobacco product, uncomplicated; Z79.899 Other long term (current) drug therapy
CPT/HCPCS: 97116; 97161; 64999; 64448; 80053; 83735; 85025; 73560; 27447; G0378 ×3; C1776; C1713 ×2; C1751; S4990 ×3; J2250; J1100; J0690 ×3; J2405; J3010; J1650 ×2; J1170 ×4; J2795; J2704; J2371

== ENCOUNTER 2022-12-04 22:22 | Emergency (ER) | payer OTHER ==
[2022-12-04 22:26] VITALS: TEMP 98.2
[2022-12-04] MEDS ORDERED: SODIUM CHLORIDE 0.9% 1,000 ML IV ONE (23:21)
[2022-12-04 23:22] VITALS: PULSE 100
--- NOTE | 2022-12-05 00:07 | ED ---
Recheck HPI - General Chief Complaint: Recheck/Abnormal Lab/Rx Stated Complaint: Low blood pressure Time Seen by Provider: 12/04/22 23:16 Source: patient Mode of arrival: ambulatory Limitations: no limitations - History of Present Illness Initial Comments: 52-year-old male presenting with chief complaint of low blood pressure. Patient is status post left knee replacement. His home nurse took his blood pressure and reported that reading 60 systolic. Patient states he is asymptomatic. He denies any dizziness, headache, chest pain, difficulty breathing, palpitations. He is having postoperative pain that has not changed in character or intensity. No bloody or dark stools. No abdominal pain. - Related Data Home Medications Medication Instructions Recorded Confirmed Benazepril HCl 40 mg PO QAM 01/06/19 11/30/22 amLODIPine [Norvasc] 10 mg PO QAM 01/06/19 11/30/22 Atorvastatin Calcium 20 mg PO HS 02/26/22 11/30/22 Chlorthalidone 25 mg PO DAILY 02/26/22 11/30/22 carvediloL [Coreg] 6.25 mg PO BID 02/26/22 11/30/22 Previous Rx's Medication Instructions Recorded HYDROcodone/APAP 5-325MG [[place] 1 tab PO Q6HR PRN #12 tab 07/02/22 5-325] Aspirin [Adult Low Dose Aspirin EC] 81 mg PO BID #60 tab 12/02/22 HYDROcodone/APAP 7.5-325MG [[place] 1 each PO Q6HR PRN #28 tab 12/02/22 7.5] Pregabalin [Lyrica] 75 mg PO BID 14 Days #21 cap 12/02/22 Sennosides/Docusate Sodium 2 each PO DAILY PRN #30 tablet 12/02/22 [Senna-S 8.6-50 mg Tablet] Allergies Allergy/AdvReac Type Severity Reaction Status Date / Time No Known Allergies Allergy Verified 11/23/22 09:14 Review of Systems ROS Statement: Those systems with pertinent positive or pertinent negative responses have been documented in the HPI. ROS Other: All systems not noted in ROS Statement are negative. Past Medical History Past Medical History: Hyperlipidemia, Hypertension, Osteoarthritis (OA) Additional Past Medical History / Comment(s): migraines History of Any Multi-Drug Resistant Organisms: None Reported Past Surgical History: Orthopedic Surgery Additional Past Surgical History / Comment(s): ACHILLES TENDON LEFT. RT/LT KNEE SURGERY. COLONOSCOPY Past Anesthesia/Blood Transfusion Reactions: No Reported Reaction Past Psychological History: No Psychological Hx Reported Smoking Status: Current every day smoker - Past Family History Mother Family Medical History: No Reported History General Exam Limitations: no limitations General appearance: alert, in no apparent distress Head exam: Present: atraumatic, normocephalic, normal inspection Eye exam: Present: normal appearance, EOMI Neck exam: Present: normal inspection, full ROM Respiratory exam: Present: normal lung sounds bilaterally. Absent: respiratory distress, wheezes, rales, rhonchi, stridor Cardiovascular Exam: Present: regular rate, normal rhythm, normal heart sounds. Absent: systolic murmur, diastolic murmur, rubs, gallop, clicks Extremities exam: Present: normal inspection Neurological exam: Present: alert, oriented X3, CN II-XII intact Psychiatric exam: Present: normal affect, normal mood Skin exam: Present: warm, dry, intact, normal color. Absent: rash Course Vital Signs 12/04/22 12/04/22 12/05/22 22:23 23:21 00:03 Temperature 98.2 F Pulse Rate 110 H 100 Respiratory 18 18 Rate Blood Pressure 105/70 102/69 106/75 O2 Sat by Pulse 100 100 Oximetry 12/05/22 12/05/22 12/05/22 00:30 00:35 01:11 Temperature Pulse Rate 100 Respiratory 19 Rate Blood Pressure 118/85 123/78 95/75 O2 Sat by Pulse 100 Oximetry Medical Decision Making - Medical Decision Making Was pt. sent in by a medical professional or institution (Dr. PA, ROLLER LEVELER OPERATOR, urgent care, hospital, or long-term...) When possible be specific @ -sent in by home nurse Did you speak to anyone other than the patient for history (EMS, parent, family, police, friend...)? What history was obtained from this source @ -No Did you review nursing and triage notes (agree or disagree)? Why? @ -I reviewed and agree with nursing and triage notes Were old charts reviewed (outside hosp., previous admission, EMS record, old EKG, old radiological studies, urgent care reports/EKG's, long-term records)? Report findings @ -No old charts were reviewed Differential Diagnosis (chest pain, altered mental status, abdominal pain women, abdominal pain men, vaginal bleeding, weakness, fever, dyspnea, syncope, headache, dizziness, GI bleed, back pain, seizure, CVA, palpatations, mental health, musculoskeletal)? @ -Differential includes volume depletion sepsis, pain medication induced hypotension, this is not an all inclusive list EKG interpreted by me (3pts min.). @ -As above X-rays interpreted by me (1pt min.). @ -None done CT interpreted by me (1pt min.). @ -None done U/S interpreted by me (1pt. min.). @ -None done What testing was considered but not performed or refused? (CT, X-rays, U/S, labs)? Why? @ -None What meds were considered but not given or refused? Why? @ -None Did you discuss the management of the patient with other professionals (professionals i.e. , PA, ROLLER LEVELER OPERATOR, lab, RT, psych nurse, social media executive, warehouse worker 2nd shift, teacher, biosecurity officer, high risk case manager)? Give summary @ -No Was smoking cessation discussed for >3mins.? @ -No Was critical care preformed (if so, how long)? @ -No Were there social determinants of health that impacted care today? How? (Homelessness, low income, unemployed, alcoholism, drug addiction, transportation, low edu. Level, literacy, decrease access to med. care, alf, rehab)? @ -No Was there de-escalation of care discussed even if they declined (Discuss DNR or withdrawal of care, Hospice)? DNR status @ -No What co-morbidities impacted this encounter? (DM, HTN, Smoking, COPD, CAD, Cancer, CVA, ARF, Chemo, Hep., AIDS, mental health diagnosis, sleep apnea, morbid obesity)? @ -None Was patient admitted / discharged? Hospital course, mention meds given and route, prescriptions, significant lab abnormalities, going to OR and other pertinent info. @ -52-year-old male presenting with chief complaint of hypotension. States that his home nurse told him he had low blood pressure. Patient states that he feels well. He is currently asymptomatic. Physical examination is unremarkable. Patient was given a fluid bolus. Blood pressure improved after fluids with most recent blood pressure at 123/70. Patient is resting comfortably and is continuing to remain asymptomatic. He'll be discharged home. Follow-up with PCP. Report back to ER with any new or worsening symptoms. Discussed return parameters and answered all questions. Patient conveyed verbal understanding and agreed to the plan. I discussed this case in detail with my attending Dr. Youngblood Undiagnosed new problem with uncertain prognosis? @ -No Drug Therapy requiring intensive monitoring for toxicity (Heparin, Nitro, Insulin, Cardizem)? @ -No Were any procedures done? @ -No Diagnosis/symptom? @ -Encounter for blood pressure check Acute, or Chronic, or Acute on Chronic? @ -Acute Uncomplicated (without systemic symptoms) or Complicated (systemic symptoms)? @ -Uncomplicated Side effects of treatment? @ -No Exacerbation, Progression, or Severe Exacerbation? @ -No Poses a threat to life or bodily function? How? (Chest pain, [place], [place], pneumonia, PE, COPD, DKA, ARF, appy, cholecystitis, CVA, Diverticulitis, Homicidal, Suicidal, threat to staff... and all critical care pts) @ -Low likelihood Disposition Clinical Impression: Blood pressure check Disposition: HOME SELF-CARE Condition: Good Instructions (If sedation given, give patient instructions): Hypotension (ED) Additional Instructions: Follow-up with PCP. Report back to ER with any new or worsening symptoms. Is patient prescribed a controlled substance at d/c from ED?: No Referrals: [facility],Clinic [Primary Care Provider] - 1-2 days Time of Disposition: 00:07
[2022-12-05 01:26] VITALS: BP 95/75; RESP 19
== END 2022-12-05 01:27 | disposition home or self-care (01) ==
LOC: EC 22:22
DX: I10 Essential (primary) hypertension (principal); E78.5 Hyperlipidemia, unspecified; M19.90 Unspecified osteoarthritis, unspecified site; F17.200 Nicotine dependence, unspecified, uncomplicated; Z79.899 Other long term (current) drug therapy
CPT/HCPCS: 96360; 99283

== ENCOUNTER 2023-01-18 10:33 | Inpatient (IN) | payer OTHER ==
[2023-01-18] MEDS ORDERED: VANCOMYCIN IV PER PHARMACY 1 EACH MISC MISCELLANE PRN (10:42)
[2023-01-18] MEDS ORDERED: HYDROmorphone 0.5 MG/0.5 ML SYRINGE IVP PRN ×3 (11:23→17:33)
[2023-01-18] MEDS ORDERED: ACETAMINOPHEN TAB 325 MG TAB PO PRN (11:23)
[2023-01-18] MEDS ORDERED: NALOXONE 0.4 MG/ML 1 ML VIAL IV PRN ×2 (11:23→17:32)
--- NOTE | 2023-01-18 11:27 | ED ---
General Adult HPI - General Chief complaint: Recheck/Abnormal Lab/Rx Stated complaint: Post-op drainage Time Seen by Provider: 01/18/23 10:40 Source: patient, RN notes reviewed, old records reviewed Mode of arrival: ambulatory Limitations: no limitations - History of Present Illness Initial comments: 52 yo male presents for evaluation of left knee infection. Patient was sent over from the orthopedic office for planned washout procedure. Patient had a total knee done in November of this year. He's been dealing with lateral drainage. No fever. No pain complaints. - Related Data Home Medications Medication Instructions Recorded Confirmed Benazepril HCl 40 mg PO QAM 01/06/19 11/30/22 amLODIPine [Norvasc] 10 mg PO QAM 01/06/19 11/30/22 Atorvastatin Calcium 20 mg PO HS 02/26/22 11/30/22 Chlorthalidone 25 mg PO DAILY 02/26/22 11/30/22 carvediloL [Coreg] 6.25 mg PO BID 02/26/22 11/30/22 Previous Rx's Medication Instructions Recorded HYDROcodone/APAP 5-325MG [[place] 1 tab PO Q6HR PRN #12 tab 07/02/22 5-325] Aspirin [Adult Low Dose Aspirin EC] 81 mg PO BID #60 tab 12/02/22 HYDROcodone/APAP 7.5-325MG [[place] 1 each PO Q6HR PRN #28 tab 12/02/22 7.5] Pregabalin [Lyrica] 75 mg PO BID 14 Days #21 cap 12/02/22 Sennosides/Docusate Sodium 2 each PO DAILY PRN #30 tablet 12/02/22 [Senna-S 8.6-50 mg Tablet] Allergies Allergy/AdvReac Type Severity Reaction Status Date / Time No Known Allergies Allergy Verified 01/18/23 10:53 Review of Systems ROS Statement: Those systems with pertinent positive or pertinent negative responses have been documented in the HPI. ROS Other: All systems not noted in ROS Statement are negative. Past Medical History Past Medical History: Hyperlipidemia, Hypertension, Osteoarthritis (OA) Additional Past Medical History / Comment(s): migraines History of Any Multi-Drug Resistant Organisms: None Reported Past Surgical History: Orthopedic Surgery Additional Past Surgical History / Comment(s): ACHILLES TENDON LEFT. RT/LT KNEE SURGERY. COLONOSCOPY Past Anesthesia/Blood Transfusion Reactions: No Reported Reaction Past Psychological History: No Psychological Hx Reported Smoking Status: Current every day smoker Past Alcohol Use History: None Reported Past Drug Use History: Marijuana - Past Family History Mother Family Medical History: No Reported History General Exam Limitations: no limitations General appearance: alert, in no apparent distress Head exam: Present: atraumatic, normocephalic Eye exam: Present: normal appearance ENT exam: Present: normal exam Neck exam: Present: normal inspection Respiratory exam: Present: normal lung sounds bilaterally. Absent: respiratory distress Cardiovascular Exam: Present: regular rate, normal rhythm GI/Abdominal exam: Present: soft. Absent: distended, tenderness Extremities exam: Present: joint swelling (He is swollen, there is a subcentimeter drainage track on the lateral aspect) Neurological exam: Present: alert, oriented X3 Psychiatric exam: Present: normal affect, normal mood Skin exam: Present: warm, dry Course Vital Signs 01/18/23 10:50 Temperature 98.2 F Pulse Rate 107 H Respiratory 20 Rate Blood Pressure 151/104 O2 Sat by Pulse 99 Oximetry Medical Decision Making - Medical Decision Making Was pt. sent in by a medical professional or institution (, PA, MAT WEAVER, urgent care, hospital, or group home...) When possible be specific @ -Sent in from orthopedics Did you speak to anyone other than the patient for history (EMS, parent, family, police, friend...)? What history was obtained from this source @ -No Did you review nursing and triage notes (agree or disagree)? Why? @ -I reviewed and agree with nursing and triage notes Were old charts reviewed (outside hosp., previous admission, EMS record, old EKG, old radiological studies, urgent care reports/EKG's, group home records)? Report findings @ -No old charts were reviewed Differential Diagnosis (chest pain, altered mental status, abdominal pain women, abdominal pain men, vaginal bleeding, weakness, fever, dyspnea, syncope, headache, dizziness, GI bleed, back pain, seizure, CVA, palpatations, mental health, musculoskeletal)? @ -Septic arthritis EKG interpreted by me (3pts min.). @ -As above X-rays interpreted by me (1pt min.). @ -None done CT interpreted by me (1pt min.). @ -None done U/S interpreted by me (1pt. min.). @ -None done What testing was considered but not performed or refused? (CT, X-rays, U/S, labs)? Why? @ -None What meds were considered but not given or refused? Why? @ -None Did you discuss the management of the patient with other professionals (professionals i.e. , PA, MAT WEAVER, lab, RT, psych nurse, social welfare research worker, lead caster, teacher, consular officer, employment case manager)? Give summary @ -No Was smoking cessation discussed for >3mins.? @ -No Was critical care preformed (if so, how long)? @ -No Were there social determinants of health that impacted care today? How? (Homelessness, low income, unemployed, alcoholism, drug addiction, transportation, low edu. Level, literacy, decrease access to med. care, assisted, rehab)? @ -No Was there de-escalation of care discussed even if they declined (Discuss DNR or withdrawal of care, Hospice)? DNR status @ -No What co-morbidities impacted this encounter? (DM, HTN, Smoking, COPD, CAD, Cancer, CVA, ARF, Chemo, Hep., AIDS, mental health diagnosis, sleep apnea, morbid obesity)? @ -[Left total knee Was patient admitted / discharged? Hospital course, mention meds given and route, prescriptions, significant lab abnormalities, going to OR and other pertinent info. @ Laboratory studies obtained including CBC, CMP, lactic acid, blood cultures. Patient started on IV antibiotics. Admitted to orthopedics with both internal medicine and infectious disease on consult. All laboratory testing is pending at the time of this dictation. Undiagnosed new problem with uncertain prognosis? @ -No Drug Therapy requiring intensive monitoring for toxicity (Heparin, Nitro, Insulin, Cardizem)? @ -No Were any procedures done? @ -No Diagnosis/symptom? @ -[Septic arthritis Acute, or Chronic, or Acute on Chronic? @ -[Acute Uncomplicated (without systemic symptoms) or Complicated (systemic symptoms)? @ -default Side effects of treatment? @ -No Exacerbation, Progression, or Severe Exacerbation? @ -No Poses a threat to life or bodily function? How? (Chest pain, [place], [place], pneumonia, PE, COPD, DKA, ARF, appy, cholecystitis, CVA, Diverticulitis, Homicidal, Suicidal, threat to staff... and all critical care pts) @ -[Yes, sepsis Disposition Clinical Impression: Status post total left knee replacement, Septic arthritis Disposition: ADMITTED IP TO THIS HOSP Condition: Stable Is patient prescribed a controlled substance at d/c from ED?: No Referrals: [facility],Clinic [Primary Care Provider] - 1-2 days Time of Disposition: 11:27
[2023-01-18] MEDS ORDERED: VANCOMYCIN 2,000 MG in SODIUM CHLORIDE 0.9% 500 ML 500 ML IVPB ONE (11:45)
[2023-01-18] MEDS: SODIUM CHLORIDE 0.9% 1,000 ML IV SCH ×3 (11:56→20:11)
[2023-01-18 12:31] LABS: Basophils % (A) 0 %; Eosinophils # (A) 0.3 k/uL (0-0.7); Eosinophils % (A) 2 %; HCT 41.4 % (39.0-53.0); HGB 13.6 gm/dL (13.0-17.5); Lymphocytes # (A) 2.1 k/uL (1.0-4.8); Lymphocytes % (A) 12 %; MCH 28.9 pg (25.0-35.0); MCHC 32.9 g/dL (31.0-37.0); MCV 87.8 fL (80.0-100.0); Mean Platelet Volume 8.7; Monocytes # (A) 0.9 k/uL (0-1.0); Monocytes % (A) 5 %; Neutrophils % (A) 80 %; Platelet Count 216 k/uL (150-450); RBC 4.72 m/uL (4.30-5.90); RDW 14.3 % (11.5-15.5); WBC 17.5 k/uL (3.8-10.6)
[2023-01-18 12:38] LABS: Prothrombin Time 10.6 sec (9.0-12.0)
[2023-01-18 12:43] LABS: Potassium 3.5 mmol/L (3.5-5.1)
[2023-01-18 12:44] LABS: ALT 12 U/L (4-49); AST 18 U/L (17-59); African American GFR (CKD) >90 (>60 ml/min/1.73 sqM); Albumin 4.2 g/dL (3.5-5.0); Alkaline Phosphatase 58 U/L (38-126); Anion Gap 12 mmol/L; Blood Urea Nitrogen 16 mg/dL (9-20); Calcium 9.8 mg/dL (8.4-10.2); Carbon Dioxide 23 mmol/L (22-30); Chloride 103 mmol/L (98-107); Glucose 103 mg/dL (74-99); Magnesium 2.1 mg/dL (1.6-2.3); Non-African American GFR(CKD) 79 (>60 ml/min/1.73 sqM); Sodium 138 mmol/L (137-145)
[2023-01-18] MEDS ORDERED: IV FLUID CONTINUATION 1,000 ML IV ONE (14:56)
[2023-01-18] MEDS ORDERED: ONDANSETRON 4 MG/2 ML VIAL ONE (15:09)
[2023-01-18] MEDS ORDERED: ONDANSETRON 4 MG/2 ML VIAL IVP ONE (15:10)
[2023-01-18] MEDS ORDERED: DEXAMETHASONE SOD PHOSPHATE 4 MG/ML 1 ML VIAL IVP ONE (15:10)
[2023-01-18] MEDS ORDERED: LIDOCAINE 1% INJ 10MG/ML (20 ML MDV) ONE (15:52)
[2023-01-18] MEDS ORDERED: ROCURONIUM 10 MG/ML (5 ML VIAL) IV ONE (15:52)
[2023-01-18] MEDS ORDERED: PROPOFOL 10 MG/ML 20 ML VIAL IV ONE (15:52)
[2023-01-18] MEDS ORDERED: fentaNYL (PF) 50 MCG/ML 2 ML AMP ONE (15:52)
[2023-01-18] MEDS ORDERED: SUCCINYLCHOLINE CHLORIDE 200 MG/10 ML VIAL IV ONE (15:52)
[2023-01-18] MEDS ORDERED: GLYCOPYRROLATE 0.2 MG/ML 2 ML VIAL ONE (15:52)
[2023-01-18] MEDS ORDERED: MIDAZOLAM 2 MG/2 ML VIAL ONE (15:52)
[2023-01-18] MEDS ORDERED: METOPROLOL TARTRATE 5 MG/5 ML VIAL IVP ONE (15:52)
[2023-01-18] MEDS ORDERED: HYDROmorphone (PF) 1 MG/ML ONE (15:52)
[2023-01-18] MEDS ORDERED: NEOSTIGMINE 1 MG/ML 10 ML VIAL ONE (15:52)
[2023-01-18] MEDS ORDERED: VANCOMYCIN 1,000 MG VIAL MISCELLANE ONE (16:26)
[2023-01-18] MEDS ORDERED: ceFAZolin 3,000 MG in SODIUM CHLORIDE 0.9% IRRIGATIO 3,000 ML IRRIGATION ONE (16:27)
[2023-01-18] MEDS ORDERED: TOBRAMYCIN SULFATE 1.2 GM VIAL MISCELLANE ONE (16:27)
[2023-01-18] MEDS ORDERED: GENTAMICIN 80 MG in SODIUM CHLORIDE 0.9% IRRIGATIO 3,000 ML IRRIGATION ONE (16:28)
--- NOTE | 2023-01-18 17:23 | P.HPOR ---
History of Present Illness H&P Date: 01/18/23 Chief Complaint: Left knee periprosthetic infection 52-year-old gentleman who presented with drainage about the left knee. He has history of left total knee arthroplasty possibly 6 weeks scope. He states that over the weekend he noticed some increased pain in began having some drainage along lateral aspect of his knee. He presented to the office and was sent to the emergency room for anticipation of incision/irrigation debridement and polyethylene exchange. Review of Systems Constitutional: Reports as per HPI Past Medical History Past Medical History: Hyperlipidemia, Hypertension, Osteoarthritis (OA) Additional Past Medical History / Comment(s): migraines History of Any Multi-Drug Resistant Organisms: None Reported Past Surgical History: Orthopedic Surgery Additional Past Surgical History / Comment(s): ACHILLES TENDON LEFT. RT/LT KNEE SURGERY. COLONOSCOPY Past Anesthesia/Blood Transfusion Reactions: No Reported Reaction Past Psychological History: No Psychological Hx Reported Smoking Status: Current every day smoker Past Alcohol Use History: None Reported Past Drug Use History: Marijuana - Past Family History Mother Family Medical History: No Reported History Medications and Allergies Home Medications Medication Instructions Recorded Confirmed Type Benazepril HCl 40 mg PO DAILY 01/06/19 01/18/23 History amLODIPine [Norvasc] 10 mg PO DAILY 01/06/19 01/18/23 History Atorvastatin Calcium 20 mg PO HS 02/26/22 01/18/23 History Chlorthalidone 25 mg PO DAILY 02/26/22 01/18/23 History carvediloL [Coreg] 6.25 mg PO BID 02/26/22 01/18/23 History Cephalexin [Keflex] 500 mg PO QID 01/18/23 01/18/23 History HYDROcodone/APAP 7.5-325MG [[place] 1 tab PO Q6HR PRN 01/18/23 01/18/23 History 7.5] Allergies Allergy/AdvReac Type Severity Reaction Status Date / Time No Known Allergies Allergy Verified 01/18/23 12:15 Physical Examination Osteopathic Statement: *. No significant issues noted on an osteopathic structural exam other than those noted in the History and Physical/Consult. Left knee anterior incision appears well-healed. There is some warmth about the knee. There is a small open wound laterally with yellow tinged drainage. Range of motion is -7-90 without pain. Homans Fantasma negative. Distal neurovascular exam is intact. Results - Labs Labs: Abnormal Lab Results - Last 24 Hours (Table) 01/18/23 01/18/23 01/18/23 Range/Units 12:01 12:01 12:10 WBC 17.5 H (3.8-10.6) k/uL Neutrophils # 14.0 H (1.3-7.7) k/uL ESR 44 H (0-15) mm/hr Glucose (74-99) mg/dL C-Reactive Protein 16.5 H (<1.0) mg/dL 01/18/23 Range/Units 12:10 WBC (3.8-10.6) k/uL Neutrophils # (1.3-7.7) k/uL ESR (0-15) mm/hr Glucose 103 H (74-99) mg/dL C-Reactive Protein (<1.0) mg/dL H & H 01/18/23 Range/Units 12:10 Hgb 13.6 (13.0-17.5) gm/dL Hct 41.4 (39.0-53.0) % Coagulation 01/18/23 Range/Units 12:10 INR 1.0 (<1.2) Result Diagrams: 01/18/23 12:10 01/18/23 12:10 Assessment and Plan Assessment: Left knee periprosthetic infection Plan: Left knee arthrotomy with polyethylene exchange, irrigation debridement and antibiotic bead placement. I discussed my impression of periprosthetic infection with the patient. I discussed the proposed procedure, risks, complications and recovery. I reviewed this significant issue with him in simple layman's terms. Questions were answered to his satisfaction. He was agreeable to the recommended procedure. Consent will be obtained. Time with Patient: Less than 30
--- NOTE | 2023-01-18 17:32 | P.OP ---
Date of Procedure: 01/18/23 Preoperative Diagnosis: Left knee periprosthetic infection Postoperative Diagnosis: Left knee periprosthetic infection Procedure(s) Performed: Left knee arthrotomy with polyethylene exchange, irrigation and debridement and antibiotic bead placement Implants: 1. Depuy attune size 8 fixed bearing cruciate retaining 8 mm polyethylene tibial insert 2. Stimulan dissolvable antibiotic beads with vancomycin and tobramycin Anesthesia: JESUSA Surgeon: Morgan Peraza [employer] Excavation Operator #1: Cristo Méndez Estimated Blood Loss (ml): 25 Pathology: none sent Condition: stable Disposition: PACU Indications for Procedure: 52-year-old gentleman who presented with clinical left knee periprosthetic infection. I recommended urgent intervention to include arthrotomy, polyethylene exchange, irrigation and debridement and dissolvable antibiotic bead placement. I did review the procedure, risks, complications and recovery with patient. He was agreeable. Consent was obtained. Operative Findings: See description of procedure Description of Procedure: The patient was taken to the operative suite. He did have some antibiotics running. He underwent a general anesthetic by the department of anesthesia. A well-padded tourniquet placed proximal left thigh. The left lower extremity was prepped and draped in the normal sterile orthopedic fashion. We elevated the extremity and insufflated the tourniquet to 300. I made an incision through previous cicatrix sharply through skin. I dissected down to the extensor mechanism. Extensor mechanism wasn't was intact. I now cut through the previous arthrotomy area in immediately encountered yellow tinged abnormal- appearing fluid. I obtained cultures along the medial aspect and then close along lateral aspect. At this point we irrigated the wound out copiously with approximately 1000 mL of antibiotic irrigant via pulse lavage irrigation. We now remove the polyethylene liner. We now irrigated the knee again with additional 2000 mL of antibiotic irrigant via pulse lavage irrigation. At this point I began performing and excisional debridement utilizing a 10 blade excising abnormal-appearing synovial tissue getting down to healthy appearing tissue. I explored the entire wound carefully noted successful excision of all the abnormal-appearing synovial tissue. We now irrigated the wound out copiously with an additional 3000 mL of antibiotic irrigant via pulse lavage irrigation. The wound was dried out next for the wound again and did not note any abnormal appearing synovial tissue. There was a rent in the lateral capsule to be cane with a lateral wound. I now placed Irresept within the wound and let that soak in for a couple of minutes. We then evacuated the receptive again irrigated the wound out copiously. At this point we had created antibiotic dissolvable beads made of tobramycin and vancomycin. Some of those beads were placed along the posterior capsule area. We now with assistance Jean REA reinserted a new polyethylene tibial insert and made sure that it was locked in place.. I took the knee through range of motion noted good range of motion and stability about the knee. We now placed the remaining antibiotic beads throughout the wound. We now released the tourniquet and hemostasis via electrocautery. I now repaired the extensor mechanism utilizing Ethibond suture. I checked the repair with range of motion and was stable. The subcutaneous soft tissues repaired with 2-0 Vicryl and the skin was repaired with skin olvin. I now exposed the lateral wound and ellipticized the margins with a 15 blade. I now repaired that with nylon suture. We applied sterile dressings. We applied a sterile Vaibhav bandage. The patient was awakened transferred recovery stable satisfactory condition having tolerated the procedure well. Jean REA assisted in all aspects of this procedure.
[2023-01-18] MEDS ORDERED: HYDROcodone/APAP 5-325MG 1 EACH TAB PO PRN (17:33)
[2023-01-18] MEDS ORDERED: HYDROmorphone 0.5 MG/0.5 ML SYRINGE IVP ONE ×3 (17:54→18:18)
[2023-01-18] MEDS ORDERED: hydrALAZINE HCL 20 MG/ML 1 ML VIAL IVP ONE (18:13)
[2023-01-18] MEDS: HYDROcodone/APAP 7.5-325MG 1 EACH TAB PO PRN (18:52)
[2023-01-18] MEDS: HYDROmorphone 1 MG/ML 1 ML SYRINGE IVP PRN (20:38)
[2023-01-19] MEDS: HYDROcodone/APAP 7.5-325MG 1 EACH TAB PO PRN ×4 (01:33→20:40)
[2023-01-19] MEDS: SODIUM CHLORIDE 0.9% 1,000 ML IV SCH ×3 (02:58→11:45)
[2023-01-19] MEDS: carvediloL 6.25 MG TAB PO SCH ×3 (03:08→20:41)
[2023-01-19] MEDS: HYDROmorphone 1 MG/ML 1 ML SYRINGE IVP PRN (03:11)
[2023-01-19] MEDS: VANCOMYCIN 1,750 MG in SODIUM CHLORIDE 0.9% 500 ML 500 ML IVPB SCH ×2 (03:13→17:38)
--- NOTE | 2023-01-19 04:47 | P.CONS ---
History of Present Illness - Reason for Consult Consult date: 01/18/23 medical management - Chief Complaint left knee drainage - History of Present Illness 52 year old male with hypertension patient sent in form his surgeons office for left knee washout, he had left knee surgery about 6 weeks ago, however, over the weekend he noticed swelling , increase pain and drainage from the lateral aspect of the knee. he tolerated procedure well no observed immediate post op complications he tolerated PO intake , and urinated ok. pain is not well controlled at this ti me and requesting pain meds. denies any chest pain or trouble breathing review of systems Pertinent positives as noted in HPI. All other systems were reviewed and are negative on exam Constitutional: No acute distress, conversant, pleasant Eyes: Anicteric sclerae, moist conjunctiva, Pupils equal round reactive to light ENMT: NC/AT Oropharynx clear, no erythema, or exudates Neck: Supple, no masses, or JVD No carotid bruits No thyromegaly Lungs: Clear to auscultation Clear to percussion Normal respiratory effort, no accessory muscle use Cardiovascular: Heart regular in rate and rhythm, No murmurs, gallops, or rubs No peripheral edema Abdominal: Soft Nontender, no guarding, rebound or rigidity Abdomen moving with respiration Normoactive bowel sounds No hepatomegaly, No splenomegaly No palpable mass No abdominal wall hernia noted Extremities: No digital cyanosis No clubbing Pedal pulses intact and symmetrical Radial pulses intact and symmetrical No calf tenderness Psychiatric: Alert and oriented to person, place and time Appropriate affect fair judgement Neuro Muscles Strength 5/5 in all 4 extremities with limited exam over left leg due to surgery Sensation to light touch grossly present throughout Cranial nerves II-XII grossly intact Lymphatics: no palpable cervical or supraclavicular lymph nodes Past Medical History Past Medical History: Hyperlipidemia, Hypertension, Osteoarthritis (OA) Additional Past Medical History / Comment(s): migraines History of Any Multi-Drug Resistant Organisms: None Reported Past Surgical History: Orthopedic Surgery Additional Past Surgical History / Comment(s): ACHILLES TENDON LEFT. RT/LT KNEE SURGERY. COLONOSCOPY Past Anesthesia/Blood Transfusion Reactions: No Reported Reaction Past Psychological History: No Psychological Hx Reported Smoking Status: Current every day smoker Past Alcohol Use History: None Reported Additional Past Alcohol Use History / Comment(s): SMOKES CIGARS ABOUT 5/DAY. SINCE AGE 22 Past Drug Use History: Marijuana Additional Drug Use History / Comment(s): USES MARIJUANA DAILY-INSTRUCTED TO REFRAIN FROM MARIJUANA AND ALCOHOL USE AT LEAST 24 HOURS PRIOR TO PROCEDURE - Past Family History Mother Family Medical History: No Reported History Medications and Allergies Home Medications Medication Instructions Recorded Confirmed Type Benazepril HCl 40 mg PO DAILY 01/06/19 01/18/23 History amLODIPine [Norvasc] 10 mg PO DAILY 01/06/19 01/18/23 History Atorvastatin Calcium 20 mg PO HS 02/26/22 01/18/23 History Chlorthalidone 25 mg PO DAILY 02/26/22 01/18/23 History carvediloL [Coreg] 6.25 mg PO BID 02/26/22 01/18/23 History Cephalexin [Keflex] 500 mg PO QID 01/18/23 01/18/23 History HYDROcodone/APAP 7.5-325MG [[place] 1 tab PO Q6HR PRN 01/18/23 01/18/23 History 7.5] Allergies Allergy/AdvReac Type Severity Reaction Status Date / Time No Known Allergies Allergy Verified 01/18/23 12:15 Physical Exam Vitals: Vital Signs Temp Pulse Pulse Resp BP BP BP 01/19/23 01:32 98.3 F 89 16 171/113 01/18/23 21:26 88 162/115 01/18/23 21:11 92 150/97 01/18/23 20:56 90 160/104 01/18/23 20:41 101 H 149/110 01/18/23 20:26 88 159/103 01/18/23 20:11 89 156/104 01/18/23 19:56 90 155/104 01/18/23 19:41 86 163/113 01/18/23 19:26 93 168/105 01/18/23 19:11 88 149/105 01/18/23 18:56 92 151/108 01/18/23 18:43 98.0 F 93 18 162/96 01/18/23 18:24 88 16 140/93 01/18/23 18:09 84 14 166/111 01/18/23 17:54 91 14 151/99 01/18/23 17:39 98.2 F 82 14 117/94 01/18/23 14:59 98 F 93 16 169/107 01/18/23 14:47 93 20 157/108 01/18/23 10:50 98.2 F 107 H 20 151/104 Pulse Ox 01/19/23 01:32 98 01/18/23 21:26 01/18/23 21:11 97 01/18/23 20:56 99 01/18/23 20:41 01/18/23 20:26 100 01/18/23 20:11 97 01/18/23 19:56 01/18/23 19:41 94 L 01/18/23 19:26 93 L 01/18/23 19:11 92 L 01/18/23 18:56 95 01/18/23 18:43 96 01/18/23 18:24 100 01/18/23 18:09 96 01/18/23 17:54 94 L 01/18/23 17:39 100 01/18/23 14:59 100 01/18/23 14:47 100 01/18/23 10:50 99 Intake and Output 01/18/23 01/18/23 01/19/23 14:59 22:59 06:59 Intake Total 200 502 Output Total 25 Balance 200 477 Intake: IV 200 502 Output: Estimated Blood Loss 25 Other: Weight 97.522 kg 97.522 kg Results CBC & Chem 7: 01/18/23 12:10 01/18/23 12:10 Labs: Abnormal Lab Results - Last 24 Hours (Table) 01/18/23 01/18/23 01/18/23 Range/Units 12:01 12:01 12:10 WBC 17.5 H (3.8-10.6) k/uL Neutrophils # 14.0 H (1.3-7.7) k/uL ESR 44 H (0-15) mm/hr Glucose (74-99) mg/dL C-Reactive Protein 16.5 H (<1.0) mg/dL 01/18/23 Range/Units 12:10 WBC (3.8-10.6) k/uL Neutrophils # (1.3-7.7) k/uL ESR (0-15) mm/hr Glucose 103 H (74-99) mg/dL C-Reactive Protein (<1.0) mg/dL Assessment and Plan Assessment: infected left knee s/p washout POD zero pain control with opiates follow up cultures continue with vancomycin lovenox sq daily 40 mg for DVT PPX hypertension , uncontrolled resume home BP meds coreg , amlodipine and lisnopril , and clorhalidone full code DVT PX on lovenox sc daily follow up CBC bmp in AM monitor blood pressure closely thank you for this consultation
[2023-01-19 05:36] LABS: African American GFR (CKD) >90 (>60 ml/min/1.73 sqM); Non-African American GFR(CKD) >90 (>60 ml/min/1.73 sqM)
[2023-01-19] MEDS ORDERED: HYDROmorphone 0.5 MG/0.5 ML SYRINGE IVP PRN (07:00)
[2023-01-19] MEDS: amLODIPine 10 MG TAB PO SCH (07:47)
[2023-01-19] MEDS: lisinopriL 20 MG TAB PO SCH (07:47)
[2023-01-19] MEDS: ENOXAPARIN 40 MG/0.4 ML SYRINGE SQ SCH (07:48)
[2023-01-19] MEDS: CHLORTHALIDONE 25 MG TAB PO SCH (07:48)
--- NOTE | 2023-01-19 08:34 | P.CONS ---
History of Present Illness - Reason for Consult Consult date: 01/18/23 Septic arthritis Requesting physician: Ceasar Gibson - Chief Complaint Left knee draining sinus x weeks - History of Present Illness Patient is a 52-year-old -Burm[place] male with a past medical history significant for hypertension hyperlipidemia osteoarthritis patient did have a left total knee arthroplasty about 6 weeks ago patient seem to have a problem with drainage from the lateral drainage catheter site but the pain has been getting worse over the weekend complaining of mostly drainage denies any worsening pain in the due to some mild discomfort more of a dull aching pain 2-3 out of 10 and no radiation, associated swelling and drainage patient denies any fever or any chills patient will on presentation the hospital was afebrile patient was evaluated by the orthopedic in the outpatient setting and has been sent to the ER for admission and washout of the left knee on presentation the hospital patient was afebrile he did have a white count 17.5 with a left shift creatinine was normal liver exams are normal CRP 16.5 patient was started on vancomycin infectious disease was consulted for further management of antibiotic therapy Review of Systems Positive point and negatives has been mentioned in the HPI, complete review of systems was performed and all other systems are negative Past Medical History Past Medical History: Hyperlipidemia, Hypertension, Osteoarthritis (OA) Additional Past Medical History / Comment(s): migraines History of Any Multi-Drug Resistant Organisms: None Reported Past Surgical History: Orthopedic Surgery Additional Past Surgical History / Comment(s): ACHILLES TENDON LEFT. RT/LT KNEE SURGERY. COLONOSCOPY Past Anesthesia/Blood Transfusion Reactions: No Reported Reaction Past Psychological History: No Psychological Hx Reported Smoking Status: Current every day smoker Past Alcohol Use History: None Reported Past Drug Use History: Marijuana - Past Family History Mother Family Medical History: No Reported History Medications and Allergies Home Medications Medication Instructions Recorded Confirmed Type Benazepril HCl 40 mg PO DAILY 01/06/19 01/18/23 History amLODIPine [Norvasc] 10 mg PO DAILY 01/06/19 01/18/23 History Atorvastatin Calcium 20 mg PO HS 02/26/22 01/18/23 History Chlorthalidone 25 mg PO DAILY 02/26/22 01/18/23 History carvediloL [Coreg] 6.25 mg PO BID 02/26/22 01/18/23 History cefTRIAXone [Rocephin] 2,000 mg IVP Q24HR #28 each 01/21/23 Rx HYDROcodone/APAP 7.5-325MG [[place] 1 each PO Q6HR PRN #28 tab 01/22/23 Rx 7.5] Multivitamins, Thera [Multivitamin 1 each PO DAILY@1200 tab 01/22/23 Rx (formulary)] Allergies Allergy/AdvReac Type Severity Reaction Status Date / Time No Known Allergies Allergy Verified 01/18/23 12:15 Physical Exam Vitals: Vital Signs Temp Pulse Resp BP Pulse Ox 01/18/23 10:50 98.2 F 107 H 20 151/104 99 Intake and Output 01/17/23 01/18/23 01/18/23 22:59 06:59 14:59 Other: Weight 97.522 kg GENERAL DESCRIPTION: Middle-aged male lying in bed, no distress. No tachypnea or accessory muscle of respiration use. HEENT: Shows Pallor , no scleral icterus. Oral mucous membrane is dry. No pharyngeal erythema or thrush NECK: Trachea central, no thyromegaly. LUNGS: Unlabored breathing. Clear to auscultation anteriorly. No wheeze or crackle. HEART: S1, S2, regular rate and rhythm. No loud murmur ABDOMEN: Soft, no tenderness , guarding or rigidity, no organomegaly EXTREMITIES: Left knee incision is currently healed he did have a draining sinus on the lateral side with some clear fluid draining SKIN: No rash, no masses palpable. NEUROLOGICAL: The patient is awake, alert, oriented x3, mood and affect normal. Results CBC & Chem 7: 01/22/23 05:39 01/22/23 05:39 Labs: Abnormal Lab Results - Last 24 Hours (Table) 01/18/23 Range/Units 12:10 WBC 17.5 H (3.8-10.6) k/uL Neutrophils # 14.0 H (1.3-7.7) k/uL Assessment and Plan (1) Postoperative infection of knee Current Visit: Yes Status: Acute Code(s): T81.49XA - INFECTION FOLLOWING A PROCEDURE, OTHER SURGICAL SITE, INIT; M00.9 - PYOGENIC ARTHRITIS, UNSPECIFIED SNOMED Code(s): 84736470 (2) Septic arthritis Current Visit: Yes Status: Acute Code(s): M00.9 - PYOGENIC ARTHRITIS, UNSPECIFIED SNOMED Code(s): 690336518 Plan: 1patient presenting the hospital with the drainage from his left knee lateral side likely from the drainage catheter site failing outpatient oral antibiotic therapy concern for possible deep infection in this patient who is status post polyethylene exchange irrigation debridement and antibiotic bead placement and cultures which are currently pending, will likely need to cover for the gram- positive skin fran to be the likely pathogen 2-vancomycin pharmacy to dose with a target trough of 15 while watching kidney function and Vanco trough closely. 3-check inflammatory markers We will follow on clinical condition and cultures to further adjust medication if needed Thank you for this consultation we will follow the patient along with you Dictation was produced using [employer]orb dictation software. please excuse any grammatical, word or spelling errors. Time with Patient: Greater than 30
[2023-01-19 09:13] LABS: Basophils # (A) 0.03 X 10*3/uL (0.00-0.10); Basophils % (A) 0.2 %; Eosinophils # (A) 0 X 10*3/uL (0.04-0.35); Eosinophils % (A) 0 %; Lymphocytes # (A) 1.53 X 10*3/uL (0.90-5.00); Lymphocytes % (A) 10.1 %; MCHC 32.4 d/dL (32.0-37.0); MCV 86.2 FL (80.0-97.0); Mean Platelet Volume 10.9 FL (9.5-12.2); Monocytes # (A) 1.29 X 10*3/uL (0.20-1.00); Monocytes % (A) 8.5 %; NRBC Per 100 WBC 0 X 10*3/uL (0.00-0.01); Neutrophils # (A) 12.26 X 10*3/uL (1.80-7.70); Neutrophils % (A) 80.7 %; Platelet Count 226 X 10*3/uL (140-440); RBC 4.29 X 10*6/uL (4.40-5.60); RDW 14.7 % (11.5-14.5); WBC 15.18 X 10*3/uL (4.50-10.00)
--- NOTE | 2023-01-19 12:49 | P.PN ---
Subjective Progress Note Date: 01/19/23 52-year-old male with PMH of hypertension, dyslipidemia presents to the ED for increased pain and swelling in the left knee. He underwent left total knee arthroplasty under Dr. Peraza on 11/30. He underwent left knee arthrotomy with polyethylene exchange, irrigation and debridement and antibiotic bead placement with Dr. Peraza on 01/18. [facility] has been consulted for medical management. 01/19 Patient was seen and examined. He reports well controlled pain in his knee. Wanting to go home. Infecious disease consulted, started on Vancomycin. CBC shows WBC count of 15.18 with Hg 12. ESR 44. CRP 16.5. Renal function within normal limits. General: non toxic, no distress, appears at stated age Derm: warm, dry Head: atraumatic, normocephalic, symmetric Eyes: EOMI, no lid lag, anicteric sclera Cardiovascular: Good distal perfusion in all 4 extremities Lungs: Breathing comfortably, no accessory muscle use Ext: no gross muscle atrophy, no edema, no contractures, left knee wrapped dressing clean dry and intact Neuro: no focal neuro deficits Psych: Alert, oriented, appropriate affect Septic arthritis status post arthrotomy with polyethylene exchange, irrigation and debridement and antibiotic bead placement POD 1 Normocytic anemia Hypertension Dyslipidemia Based on my assessment of this patient, this patient meets a moderate complexity level of care. Patient has a history of L total knee replacement complicated with septic arthritis with severe exacerbation or progression of disease which poses a threat to life or bodily function. He underwent left knee arthrotomy with polye thylene exchange, irrigation and debridement and antibiotic bead placement with Dr. Peraza on 01/18. Continued on Vancomycin with ID on board. Septic arthritis status post arthrotomy with polyethylene exchange, irrigation and debridement and antibiotic bead placement POD 1: Continue Vancomycin, dosed by pharmacy. Daily renal function monitoring for renal toxicity. Follow wound cultures collected in OR and blood cultures. Pain managed by orthopedic Sx. ID on board. Normocytic anemia: Stable. Continue to monitor. Transfuse if Hg < 7. Hypertension: Chlorthalidone 25 mg PO QD. Coreg 6.25 mg PO BID. Amlodipine 10 mg PO QD. Lisinopril 40 mg PO QD. Dyslipidemia: Lipitor 20 mg PO QHS. I have reviewed the following in home sales consultant notes: I have reviewed the results of the following tests: CBC, renal function, ESR, CRP. I have ordered the following tests: Renal function. CBC. I have discussed the care of this patient with the following independent historian: I have independently interpreted the following test below: I have discussed the management of this patient with the following physician: Objective - Vital Signs Vital signs: Vital Signs Temp 98.1 F 01/19/23 07:58 Pulse 89 01/19/23 07:58 Resp 20 01/19/23 07:58 BP 155/88 01/19/23 08:59 Pulse Ox 97 01/19/23 07:58 FiO2 Intake & Output 01/18/23 01/19/23 01/19/23 18:59 06:59 18:59 Intake Total 702 Output Total 25 300 250 Balance 677 -300 -250 Weight 97.522 kg 97.522 kg Intake: IV 702 Output: Urine 300 250 Estimated Blood Loss 25 - Labs CBC & Chem 7: 01/19/23 05:01 01/19/23 05:01 Labs: Abnormal Lab Results - Last 24 Hours (Table) 01/18/23 01/18/23 01/18/23 Range/Units 12:01 12:01 12:10 WBC (4.50-10.00) X 10*3/uL RBC (4.40-5.60) X 10*6/uL Hgb (13.0-17.0) d/dL Hct (39.6-50.0) % RDW (11.5-14.5) % Neutrophils # (1.80-7.70) X 10*3/uL Monocytes # (0.20-1.00) X 10*3/uL Eosinophils # (0.04-0.35) X 10*3/uL ESR 44 H (0-15) mm/hr Glucose 103 H (74-99) mg/dL C-Reactive Protein 16.5 H (<1.0) mg/dL 01/19/23 Range/Units 05:01 WBC 15.18 H (4.50-10.00) X 10*3/uL RBC 4.29 L (4.40-5.60) X 10*6/uL Hgb 12.0 L (13.0-17.0) d/dL Hct 37.0 L (39.6-50.0) % RDW 14.7 H (11.5-14.5) % Neutrophils # 12.26 H (1.80-7.70) X 10*3/uL Monocytes # 1.29 H (0.20-1.00) X 10*3/uL Eosinophils # 0 L (0.04-0.35) X 10*3/uL ESR (0-15) mm/hr Glucose (74-99) mg/dL C-Reactive Protein (<1.0) mg/dL
[2023-01-19] MEDS: MULTIVITAMINS, THERA 1 EACH TAB PO SCH (13:03)
--- NOTE | 2023-01-19 13:36 | P.PN ---
Subjective Progress Note Date: 01/19/23 Principal diagnosis: Left knee periprosthetic infection, status post arthrotomy with polyethylene exchange, irrigation and debridement and antibiotic bead placement Patient evaluated at bedside, he is resting comfortably. Pain is well- controlled. Ambulating with no significant difficulties. Internal medicine and infectious disease are following. Has no other complaints at this time. Objective - Vital Signs Vital signs: Vital Signs Temp 98.1 F 01/19/23 07:58 Pulse 89 01/19/23 07:58 Resp 20 01/19/23 07:58 BP 155/88 01/19/23 08:59 Pulse Ox 97 01/19/23 07:58 FiO2 Intake & Output 01/18/23 01/19/23 01/19/23 18:59 06:59 18:59 Intake Total 702 Output Total 25 300 250 Balance 677 -300 -250 Weight 97.522 kg 97.522 kg Intake: IV 702 Output: Urine 300 250 Estimated Blood Loss 25 - Exam Left lower extremity: Vaibhav bandages in good position and condition. Sensation to light touch proximal and distal to the Vaibhav bandage are intact. Plantar flexion, dorsiflexion, EHL, FHL are intact. - Labs CBC & Chem 7: 01/19/23 05:01 01/19/23 05:01 Labs: Abnormal Lab Results - Last 24 Hours (Table) 01/19/23 Range/Units 05:01 WBC 15.18 H (4.50-10.00) X 10*3/uL RBC 4.29 L (4.40-5.60) X 10*6/uL Hgb 12.0 L (13.0-17.0) d/dL Hct 37.0 L (39.6-50.0) % RDW 14.7 H (11.5-14.5) % Neutrophils # 12.26 H (1.80-7.70) X 10*3/uL Monocytes # 1.29 H (0.20-1.00) X 10*3/uL Eosinophils # 0 L (0.04-0.35) X 10*3/uL Assessment and Plan Assessment: Postoperative day #1 status post left knee arthrotomy with polyethylene exchange, irrigation and debridement and antibiotic beads placement Plan: Pain control, continue current medication DVT prophylaxis, continue current medication Wound care, we will take down Vaibhav bandage and change dressing on 01/20/2023 Weight-bear as tolerated, recommend use of walker Icing and elevating techniques discussed Encourage incentive spirometer Infectious disease and internal medicine recommendations appreciated Discharge planning: Anticipate patient to have either a PICC line for IV antibiotics, await culture and sensitivity results. Anticipate discharge to home with home healthcare Time with Patient: Less than 30
--- NOTE | 2023-01-19 16:39 | P.PN ---
Subjective Progress Note Date: 01/19/23 Principal diagnosis: Left knee septic arthritis Patient is a 52-year-old -[place] male with a past medical history significant for hypertension hyperlipidemia osteoarthritis patient did have a left total knee arthroplasty about 6 weeks before presentation to the hospital with the draining from his left knee area and this patient who is status post left knee arthrotomy with polyethylene exchange and antibiotic beads placement. On today's evaluation that is 01/19/2023, the patient remains to be afebrile, the patient is breathing comfortably without need for supplemental oxygen , the patient denies chest pain and no significant cough, patient denies nausea/vomiting /diarrhea and denies abdominal pain, the patient pain into the left is currently controlled Patient white count is down 15.18, creatinine 0.92 cultures are pending Objective - Vital Signs Vital signs: Vital Signs Temp 98.1 F 01/19/23 07:58 Pulse 89 01/19/23 07:58 Resp 20 01/19/23 07:58 BP 155/88 01/19/23 08:59 Pulse Ox 97 01/19/23 07:58 FiO2 Intake & Output 01/18/23 01/19/23 01/19/23 18:59 06:59 18:59 Intake Total 702 Output Total 25 300 250 Balance 677 -300 -250 Weight 97.522 kg 97.522 kg Intake: IV 702 Output: Urine 300 250 Estimated Blood Loss 25 - Exam GENERAL DESCRIPTION: Middle-aged male lying in bed in no distress RESPIRATORY SYSTEM: Unlabored breathing , decreased breath sounds at bases HEART: S1 S2 regular rate and rhythm , ABDOMEN: Soft , no tenderness EXTREMITIES: Left knee is currently dressed - Labs CBC & Chem 7: 01/19/23 05:01 01/19/23 05:01 Labs: Abnormal Lab Results - Last 24 Hours (Table) 01/18/23 01/18/23 01/18/23 Range/Units 12:01 12:01 12:10 WBC (4.50-10.00) X 10*3/uL RBC (4.40-5.60) X 10*6/uL Hgb (13.0-17.0) d/dL Hct (39.6-50.0) % RDW (11.5-14.5) % Neutrophils # (1.80-7.70) X 10*3/uL Monocytes # (0.20-1.00) X 10*3/uL Eosinophils # (0.04-0.35) X 10*3/uL ESR 44 H (0-15) mm/hr Glucose 103 H (74-99) mg/dL C-Reactive Protein 16.5 H (<1.0) mg/dL 01/19/23 Range/Units 05:01 WBC 15.18 H (4.50-10.00) X 10*3/uL RBC 4.29 L (4.40-5.60) X 10*6/uL Hgb 12.0 L (13.0-17.0) d/dL Hct 37.0 L (39.6-50.0) % RDW 14.7 H (11.5-14.5) % Neutrophils # 12.26 H (1.80-7.70) X 10*3/uL Monocytes # 1.29 H (0.20-1.00) X 10*3/uL Eosinophils # 0 L (0.04-0.35) X 10*3/uL ESR (0-15) mm/hr Glucose (74-99) mg/dL C-Reactive Protein (<1.0) mg/dL Assessment and Plan (1) Infected prosthetic knee joint Current Visit: Yes Status: Acute Code(s): T84.59XA - INFECT/INFLM REACTION DUE TO OTH INTERNAL JOINT PROSTH, INIT; Z96.659 - PRESENCE OF UNSPECIFIED ARTIFICIAL KNEE JOINT SNOMED Code(s): 177191279 (2) Septic arthritis Current Visit: Yes Status: Acute Code(s): M00.9 - PYOGENIC ARTHRITIS, UNSPECIFIED SNOMED Code(s): 859480083 Plan: 1patient presenting the hospital with the drainage from his left knee lateral side likely from the drainage catheter site failing outpatient oral antibiotic therapy concern for possible deep infection in this patient who is status post polyethylene exchange irrigation debridement and antibiotic bead placement and cultures which are currently pending, will likely need to cover for the gram- positive skin fran to be the likely pathogen 2- patient did have a sed rate of 44 and creatinine 16.5 cultures pending 3continue with the vancomycin while waiting for the culture finalized will need a PICC line for outpatient IV antibiotics Dictation was produced using [employer] dictation software. please excuse any grammatical, word or spelling errors. Time with Patient: Less than 30
[2023-01-19] MEDS: ATORVASTATIN 20 MG TAB PO SCH (20:40)
[2023-01-20] MEDS: VANCOMYCIN 1,750 MG in SODIUM CHLORIDE 0.9% 500 ML 500 ML IVPB SCH ×2 (04:26→16:32)
[2023-01-20] MEDS: HYDROcodone/APAP 7.5-325MG 1 EACH TAB PO PRN ×2 (04:26→14:58)
[2023-01-20] MEDS: CHLORTHALIDONE 25 MG TAB PO SCH (09:05)
[2023-01-20] MEDS: amLODIPine 10 MG TAB PO SCH (09:05)
[2023-01-20] MEDS: lisinopriL 20 MG TAB PO SCH (09:05)
[2023-01-20] MEDS: ENOXAPARIN 40 MG/0.4 ML SYRINGE SQ SCH (09:05)
[2023-01-20] MEDS: carvediloL 6.25 MG TAB PO SCH ×2 (09:05→19:58)
--- NOTE | 2023-01-20 11:07 | P.PN ---
Subjective Progress Note Date: 01/20/23 Principal diagnosis: Left knee periprosthetic infection, status post arthrotomy with polyethylene exchange, irrigation and debridement and antibiotic bead placement Patient was evaluated today at bedside, he is resting in his hospital bed. No acute events overnight. Patient has been elevating and icing the knee. Vaibhav bandage and bandages were removed at bedside. Patient has been afebrile since hospital admission. Pain is well-controlled. Patient is being followed by [facility] medical specialists at this time. Objective - Vital Signs Vital signs: Vital Signs Temp 98.1 F 01/20/23 07:10 Pulse 84 01/20/23 07:10 Resp 21 01/20/23 07:10 BP 154/95 01/20/23 07:10 Pulse Ox 100 01/20/23 07:10 FiO2 Intake & Output 01/19/23 01/20/23 01/20/23 18:59 06:59 18:59 Output Total 250 950 Balance -250 -950 Output: Urine 250 950 - Exam Left lower extremity: Vaibhav bandage and postop bandages are removed today at bedside. [place] are all in good position condition. There is some bloody drainage noted on the dressing near the olvin, no purulence was observed. There is some swelling present on the knee. S stitches are in good position on the lateral wound. Calf is soft, no tenderness with palpation. Plantar flexion, dorsiflexion, EHL, FHL are intact. Sensory exam to light touch throughout the extremity is intact. - Labs CBC & Chem 7: 01/19/23 05:01 01/19/23 05:01 Labs: Microbiology - Last 24 Hours (Table) 01/18/23 16:30 Gram Stain - Preliminary Knee - Left Wound Culture - Preliminary 01/18/23 16:29 Gram Stain - Preliminary Knee - Left Wound Culture - Preliminary 01/18/23 11:39 Blood Culture - Preliminary Blood 01/18/23 11:54 Blood Culture - Preliminary Blood Assessment and Plan Assessment: Postoperative day #2 status post left knee arthrotomy with polyethylene exchange, irrigation and debridement and antibiotic beads placement Plan: Pain control, continue current medication DVT prophylaxis, continue current medication Wound care, new foam dressings were placed today at bedside, okay to leave in place over the next 35 days Weight-bear as tolerated, recommend use of walker Icing and elevating techniques discussed Encourage incentive spirometer Infectious disease and internal medicine recommendations appreciated CBC, CRP and sed rate to be drawn on 01/21/2023 Discharge planning: Anticipate patient to have either a PICC line for IV antibiotics, await culture and sensitivity results. Anticipate discharge to home with home healthcare at that time Time with Patient: Less than 30
[2023-01-20] MEDS ORDERED: bisacodyL 5 MG TABLET.DR PO PRN (11:51)
--- NOTE | 2023-01-20 11:52 | P.PN ---
Subjective Progress Note Date: 01/20/23 Principal diagnosis: Left knee septic arthritis Patient is a 52-year-old -[place] male with a past medical history significant for hypertension hyperlipidemia osteoarthritis patient did have a left total knee arthroplasty about 6 weeks before presentation to the hospital with the draining from his left knee area and this patient who is status post left knee arthrotomy with polyethylene exchange and antibiotic beads placement. On today's evaluation that is 01/20/2023, the patient continues to be afebrile, the patient is breathing on room air, the patient denies chest pain and no cough, patient denies abdominal pain, no nausea/vomiting /diarrhea , the patient pain to the left knee is currently controlled Patient white count is down 15.18, creatinine 0.92 as of yesterday no blood draw today, cultures are pending Objective - Vital Signs Vital signs: Vital Signs Temp 98.1 F 01/20/23 07:10 Pulse 84 01/20/23 07:10 Resp 21 01/20/23 07:10 BP 154/95 01/20/23 07:10 Pulse Ox 100 01/20/23 07:10 FiO2 Intake & Output 01/19/23 01/20/23 01/20/23 18:59 06:59 18:59 Output Total 250 950 Balance -250 -950 Output: Urine 250 950 - Exam GENERAL DESCRIPTION: Middle-aged male lying in bed in no distress RESPIRATORY SYSTEM: Unlabored breathing , decreased breath sounds at bases HEART: S1 S2 regular rate and rhythm , ABDOMEN: Soft , no tenderness EXTREMITIES: Left knee is currently dressed - Labs CBC & Chem 7: 01/19/23 05:01 01/19/23 05:01 Labs: Microbiology - Last 24 Hours (Table) 01/18/23 16:30 Gram Stain - Preliminary Knee - Left Wound Culture - Preliminary 01/18/23 16:29 Gram Stain - Preliminary Knee - Left Wound Culture - Preliminary 01/18/23 11:39 Blood Culture - Preliminary Blood 01/18/23 11:54 Blood Culture - Preliminary Blood Assessment and Plan (1) Infected prosthetic knee joint Current Visit: Yes Status: Acute Code(s): T84.59XA - INFECT/INFLM REACTION DUE TO OTH INTERNAL JOINT PROSTH, INIT; Z96.659 - PRESENCE OF UNSPECIFIED ARTIFICIAL KNEE JOINT SNOMED Code(s): 901396779 (2) Septic arthritis Current Visit: Yes Status: Acute Code(s): M00.9 - PYOGENIC ARTHRITIS, UN SPECIFIED SNOMED Code(s): 037235842 Plan: 1patient presenting the hospital with the drainage from his left knee lateral side likely from the drainage catheter site failing outpatient oral antibiotic therapy concern for possible deep infection in this patient who is status post polyethylene exchange irrigation debridement and antibiotic bead placement and cultures which are currently pending, will likely need to cover for the gram-positive skin fran to be the likely pathogen 2- patient did have a sed rate of 44 and creatinine 16.5, cultures are currently pending 3patient to continue with the vancomycin while waiting for the culture f inalized to determine his discharge antibiotics Dictation was produced using [employer] dictation software. please excuse any grammatical, word or spelling errors. Time with Patient: Less than 30
[2023-01-20] MEDS: MULTIVITAMINS, THERA 1 EACH TAB PO SCH (14:58)
[2023-01-20] MEDS ORDERED: VANCOMYCIN TROUGH DUE 1 EACH MISC MISCELLANE ONE (15:00)
[2023-01-20 17:13] LABS: African American GFR (CKD) 84 (>60 ml/min/1.73 sqM); Non-African American GFR(CKD) 72 (>60 ml/min/1.73 sqM)
[2023-01-20] MEDS: ATORVASTATIN 20 MG TAB PO SCH (19:58)
--- NOTE | 2023-01-20 20:17 | P.PN ---
Subjective Progress Note Date: 01/20/23 (delayed charting seen at 1130) Patient is a 52-year-old male with PMH of hypertension, dyslipidemia presents to the ED for increased pain and swelling in the left knee. He underwent left total knee arthroplasty under Dr. Peraza on 11/30. He underwent left knee arthrotomy with polyethylene exchange, irrigation and debridement and antibiotic bead placement with Dr. Peraza on 01/18. Patient seen and examined at bedside. He is doing well. Pain is well controlled. He is having some constipation. He denies any nausea or vomiting. Discussed at length that he will need a prolonged course of outpatient IV antibiotics. Vital signs reviewed General: nontoxic, no distress, appears at stated age Cardiovascular: S1S2 reg, no murmur, positive posterior tibial pulse bilateral, Lungs: CTA bilateral, no rhonchi, no rales , no accessory muscle use Ext: no gross muscle atrophy, no edema b/l lower extremities, no contractures, dressing in place over left knee Neuro: CN II-XI grossly intact, no focal neuro deficits Psych: Alert, oriented, appropriate affect Assessment/Plan: Septic Arthritis of the left knee, periprosthetic status post irrigation debrided and antibiotic bead placement on 01/18/23,, failed outpatient treatment with keflex -Orthopedic surgery note reviewed: New Dressings placed today, weight-bear as tolerated with walker, ESR and sed rate on 01/21/23. -Infectious disease note reviewed: Plan will be for outpatient IV antibiotics, continue to vancomycin while awaiting for cultures to finalize -Continue with vancomycin 1500 mg IV piggyback every 12 hours. Monitor trough and creatinine for signs of toxicity -Await wound cultures. Normocytic anemia, Stable - repat CBC in AM Hypertension - Chlorthalidone 25 mg PO QD. Coreg 6.25 mg PO BID. Amlodipine 10 mg PO QD. Lisinopril 40 mg PO QD - follow BP Dyslipidemia - Lipitor 20 mg PO QHS. Imaging: None new Data Review: Afebrile for the last 24 hours. -Labs reviewed include creatinine is 1.15 and vancomycin trough which was 21.4 Thank you for allowing us to participate in the care of this pleasant patient. Do not hesitate to contact us with questions. Someone can be reached from the [facility] hospitalist group all hours of the day at [phone] or via perfect serve. This dictation was prepared using [employer] voice recognition software. Though every attempt is made to correct errors during dictation some may still exist. Objective - Vital Signs Vital signs: Vital Signs Temp 98.7 F 01/20/23 19:55 Pulse 93 01/20/23 19:55 Resp 17 01/20/23 19:55 BP 130/81 01/20/23 19:55 Pulse Ox 97 01/20/23 19:55 FiO2 Intake & Output 01/20/23 01/20/23 01/21/23 06:59 18:59 06:59 Intake Total 500 Output Total 950 2100 Balance -950 -1600 Intake: Intake, IV Titration 500 Amount Vancomycin 1,750 mg In 500 Sodium Chloride 0.9% 500 ml 500 ml @ 167 mls/hr IVPB Q12H [facility] Rx#: [id number] Output: Urine 950 2100 - Labs CBC & Chem 7: 01/19/23 05:01 01/20/23 16:24 Labs: Microbiology - Last 24 Hours (Table) 01/18/23 16:29 Gram Stain - Final Knee - Left Wound Culture - Final 01/18/23 16:30 Gram Stain - Final Knee - Left Wound Culture - Final 01/18/23 11:39 Blood Culture - Preliminary Blood 01/18/23 11:54 Blood Culture - Preliminary Blood
[2023-01-21] MEDS: HYDROcodone/APAP 7.5-325MG 1 EACH TAB PO PRN (06:00)
[2023-01-21] MEDS ORDERED: VANCOMYCIN 1,500 MG in SODIUM CHLORIDE 0.9% 500 ML 500 ML IVPB SCH (06:00)
[2023-01-21 07:06] LABS: African American GFR (CKD) >90 (>60 ml/min/1.73 sqM); C Reactive Protein 4.8 mg/dL (<1.0); Non-African American GFR(CKD) 88 (>60 ml/min/1.73 sqM)
[2023-01-21] MEDS ORDERED: MAGNESIUM HYDROXIDE 2,400 MG/30 ML CUP PO PRN (07:54)
--- NOTE | 2023-01-21 10:49 | P.PN ---
Subjective Progress Note Date: 01/21/23 Principal diagnosis: Left knee periprosthetic infection, status post arthrotomy with polyethylene exchange, irrigation and debridement and antibiotic bead placement Patient was evaluated today at bedside, he is resting in his hospital bed. No acute events overnight. Patient has been elevating and icing the knee. Patient has been afebrile since hospital admission. Pain is well-controlled. Patient is being followed by other medical specialists at this time. Objective - Vital Signs Vital signs: Vital Signs Temp 98.2 F 01/21/23 07:02 Pulse 88 01/21/23 07:02 Resp 18 01/21/23 07:02 BP 126/87 01/21/23 07:02 Pulse Ox 96 01/21/23 07:02 FiO2 Intake & Output 01/20/23 01/21/23 01/21/23 18:59 06:59 18:59 Intake Total 500 Output Total 2100 700 Balance -1600 -700 Intake: Intake, IV Titration 500 Amount Vancomycin 1,750 mg In 500 Sodium Chloride 0.9% 500 ml 500 ml @ 167 mls/hr IVPB Q12H [facility] Rx#: [id number] Output: Urine 2100 700 Other: # Voids 0 - Exam Left lower extremity: Postoperative bandages are in good position and condition, no active drainage visualized. Mild swelling appreciated on the knee. Calf is soft, no tenderness with palpation. Plantar flexion, dorsiflexion, EHL, FHL are intact. Sensory exam to light touch throughout the extremity is intact. - Labs CBC & Chem 7: 01/19/23 05:01 01/21/23 06:31 Labs: Abnormal Lab Results - Last 24 Hours (Table) 01/21/23 Range/Units 06:31 C-Reactive Protein 4.8 H (<1.0) mg/dL Microbiology - Last 24 Hours (Table) 01/18/23 16:29 Gram Stain - Final Knee - Left Wound Culture - Final 01/18/23 16:30 Gram Stain - Final Knee - Left Wound Culture - Final 01/18/23 11:39 Blood Culture - Preliminary Blood 01/18/23 11:54 Blood Culture - Preliminary Blood Assessment and Plan Assessment: Postoperative day #3 status post left knee arthrotomy with polyethylene exchange, irrigation and debridement and antibiotic beads placement Plan: Pain control, continue current medication DVT prophylaxis, continue current medication Wound care, monitor surgical dressing Weight-bear as tolerated, recommend use of walker Icing and elevating techniques discussed Encourage incentive spirometer Infectious disease and internal medicine recommendations appreciated CRP was noted to decrease, awaiting sed rate and CBC results Discharge planning: Anticipate patient to have either a PICC line for IV antibiotics, await culture and sensitivity results. Anticipate discharge to home with home healthcare at that time. Time with Patient: Less than 30
[2023-01-21] MEDS: lisinopriL 20 MG TAB PO SCH (11:13)
[2023-01-21] MEDS: carvediloL 6.25 MG TAB PO SCH ×2 (11:13→20:04)
[2023-01-21] MEDS: CHLORTHALIDONE 25 MG TAB PO SCH (11:13)
[2023-01-21] MEDS: amLODIPine 10 MG TAB PO SCH (11:14)
[2023-01-21] MEDS: ENOXAPARIN 40 MG/0.4 ML SYRINGE SQ SCH (11:14)
[2023-01-21] MEDS: MULTIVITAMINS, THERA 1 EACH TAB PO SCH (11:14)
[2023-01-21 11:28] LABS: Basophils # (A) 0.04 X 10*3/uL (0.00-0.10); Basophils % (A) 0.5 %; Eosinophils # (A) 0.79 X 10*3/uL (0.04-0.35); Eosinophils % (A) 9.1 %; HCT 37.5 % (39.6-50.0); Lymphocytes # (A) 1.98 X 10*3/uL (0.90-5.00); Lymphocytes % (A) 22.9 %; MCV 87.4 FL (80.0-97.0); Mean Platelet Volume 10.9 FL (9.5-12.2); Monocytes % (A) 13.9 %; NRBC Per 100 WBC 0 X 10*3/uL (0.00-0.01); Neutrophils % (A) 53.1 %; Platelet Count 260 X 10*3/uL (140-440); RBC 4.29 X 10*6/uL (4.40-5.60); RDW 14.5 % (11.5-14.5); WBC 8.65 X 10*3/uL (4.50-10.00)
[2023-01-21 11:36] LABS: Erythrocyte Sedimentation Rate 99 mm/Hr (0-20)
--- NOTE | 2023-01-21 14:53 | P.PN ---
Subjective Progress Note Date: 01/21/23 Principal diagnosis: Left knee septic arthritis Patient is a 52-year-old -[place] male with a past medical history significant for hypertension hyperlipidemia osteoarthritis patient did have a left total knee arthroplasty about 6 weeks before presentation to the hospital with the draining from his left knee area and this patient who is status post left knee arthrotomy with polyethylene exchange and antibiotic beads placement. On today's evaluation that is 01/21/2023, the patient remains to be afebrile, the patient is breathing comfortably on room air , the patient denies chest pain shortness of breath or cough, patient denies nausea/vomiting /diarrhea and no abdominal pain, the patient pain to the left knee is currently controlled Patient white count normalized to 8.65, creatinine 0.97, cultures has been negative so far Objective - Vital Signs Vital signs: Vital Signs Temp 98.2 F 01/21/23 07:02 Pulse 88 01/21/23 07:02 Resp 18 01/21/23 07:02 BP 126/87 01/21/23 07:02 Pulse Ox 96 01/21/23 07:02 FiO2 Intake & Output 01/20/23 01/21/23 01/21/23 18:59 06:59 18:59 Intake Total 500 Output Total 2100 700 Balance -1600 -700 Intake: Intake, IV Titration 500 Amount Vancomycin 1,750 mg In 500 Sodium Chloride 0.9% 500 ml 500 ml @ 167 mls/hr IVPB Q12H [facility] Rx#: [id number] Output: Urine 2100 700 Other: # Voids 0 - Exam GENERAL DESCRIPTION: Middle-aged male lying in bed in no distress RESPIRATORY SYSTEM: Unlabored breathing , decreased breath sounds at bases HEART: S1 S2 regular rate and rhythm , ABDOMEN: Soft , no tenderness EXTREMITIES: Left knee is currently dressed - Labs CBC & Chem 7: 01/21/23 06:31 01/21/23 06:31 Labs: Abnormal Lab Results - Last 24 Hours (Table) 01/21/23 01/21/23 Range/Units 06:31 06:31 RBC 4.29 L (4.40-5.60) X 10*6/uL Hgb 12.0 L (13.0-17.0) d/dL Hct 37.5 L (39.6-50.0) % Monocytes # 1.20 H (0.20-1.00) X 10*3/uL Eosinophils # 0.79 H (0.04-0.35) X 10*3/uL ESR 99 H (0-20) mm/Hr C-Reactive Protein 4.8 H (<1.0) mg/dL Microbiology - Last 24 Hours (Table) 01/18/23 16:29 Gram Stain - Final Knee - Left Wound Culture - Final 01/18/23 16:30 Gram Stain - Final Knee - Left Wound Culture - Final 01/18/23 11:39 Blood Culture - Preliminary Blood 01/18/23 11:54 Blood Culture - Preliminary Blood Assessment and Plan (1) Infected prosthetic knee joint Current Visit: Yes Status: Acute Code(s): T84.59XA - INFECT/INFLM REACTION DUE TO OTH INTERNAL JOINT PROSTH, INIT; Z96.659 - PRESENCE OF UNSPECIFIED ARTIFICIAL KNEE JOINT SNOMED Code(s): 553888060 (2) Septic arthritis Current Visit: Yes Status: Acute Code(s): M00.9 - PYOGENIC ARTHRITIS, UNSPECIFIED SNOMED Code(s): 197323550 Plan: 1patient presenting the hospital with the drainage from his left knee lateral side likely from the drainage catheter site failing outpatient oral antibiotic therapy concern for possible deep infection in this patient who is status post polyethylene exchange irrigation debridement and antibiotic bead placement and cultures which are currently pending, will likely need to cover for the gram- positive skin fran to be the likely pathogen 2- patient did have a sed rate of 44 and creatinine 16.5, cultures are negative for MRSA 3we will discontinue vancomycin start patient on Rocephin 2 g daily get a PICC line for outpatient IV Rocephin 4 weeks prescriptions were provided to the case management coordinator Dictation was produced using [employer]ian[employer] software. please excuse any grammatical, word or spelling errors. Time with Patient: Less than 30
--- NOTE | 2023-01-21 18:10 | P.PN ---
Subjective Progress Note Date: 01/21/23 (delayed charting seen at 1010) Patient is a 52-year-old male with PMH of hypertension, dyslipidemia presents to the ED for increased pain and swelling in the left knee. He underwent left total knee arthroplasty under Dr. Peraza on 11/30. He underwent left knee arthrotomy with polyethylene exchange, irrigation and debridement and antibiotic bead placement with Dr. Peraza on 01/18. Patient seen and examined at bedside. He has no complaints currently. He had a bowel movement yesterday. His BP was well-controlled. Vital signs reviewed General: nontoxic, no distress, appears at stated age Cardiovascular: S1S2 reg, no murmur, positive posterior tibial pulse bilateral, Lungs: CTA bilateral, no rhonchi, no rales , no accessory muscle use Ext: no gross muscle atrophy, no edema b/l lower extremities, no contractures, dressing in place over left knee Neuro: CN II-XI grossly intact, no focal neuro deficits Psych: Alert, oriented, appropriate affect Assessment/Plan: Septic Arthritis of the left knee, periprosthetic status post irrigation debrided and antibiotic bead placement on 01/18/23,, failed outpatient treatment with keflex -Case discussed with Dr. Crane. Plan will be for 6 weeks of IV Rocephin given negative cultures of the knee. PICC line ordered. -Discussed case with ÁLVARO Puente with orthopedic surgery. Continue with current plan of care. - await PICC line and abx approval from [place] - Rocephin 2 gram IVPB q 24 hours Normocytic anemia, Stable - repeat CBC in AM Hypertension - Chlorthalidone 25 mg PO QD. Coreg 6.25 mg PO BID. Amlodipine 10 mg PO QD. Lisinopril 40 mg PO QD - follow BP Dyslipidemia - Lipitor 20 mg PO QHS. Imaging: None new Data Review: Afebrile for the last 24 hours. -Labs reviewed include creatinine is 1.15 and vancomycin trough which was 21.4 Thank you for allowing us to participate in the care of this pleasant patient. Do not hesitate to contact us with questions. Someone can be reached from the [facility] hospitalist group all hours of the day at [phone] or via [employer]. This dictation was prepared using [employer] voice recognition software. Though every attempt is made to correct errors during dictation some may still exist. Objective - Vital Signs Vital signs: Vital Signs Temp 99.2 F 01/21/23 13:49 Pulse 93 01/21/23 13:49 Resp 18 01/21/23 13:49 BP 138/88 01/21/23 13:49 Pulse Ox 98 01/21/23 13:49 FiO2 Intake & Output 01/20/23 01/21/23 01/21/23 18:59 06:59 18:59 Intake Total 500 Output Total 2100 700 Balance -1600 -700 Intake: Intake, IV Titration 500 Amount Vancomycin 1,750 mg In 500 Sodium Chloride 0.9% 500 ml 500 ml @ 167 mls/hr IVPB Q12H LATISHA Rx#: [id number] Output: Urine 2100 700 Other: # Voids 0 - Labs CBC & Chem 7: 01/21/23 06:31 01/21/23 06:31 Labs: Abnormal Lab Results - Last 24 Hours (Table) 01/21/23 01/21/23 Range/Units 06:31 06:31 RBC 4.29 L (4.40-5.60) X 10*6/uL Hgb 12.0 L (13.0-17.0) d/dL Hct 37.5 L (39.6-50.0) % Monocytes # 1.20 H (0.20-1.00) X 10*3/uL Eosinophils # 0.79 H (0.04-0.35) X 10*3/uL ESR 99 H (0-20) mm/Hr C-Reactive Protein 4.8 H (<1.0) mg/dL Microbiology - Last 24 Hours (Table) 01/18/23 11:39 Blood Culture - Preliminary Blood 01/18/23 11:54 Blood Culture - Preliminary Blood 01/18/23 16:29 Gram Stain - Final Knee - Left Wound Culture - Final 01/18/23 16:30 Gram Stain - Final Knee - Left Wound Culture - Final
[2023-01-21] MEDS: ATORVASTATIN 20 MG TAB PO SCH (20:04)
[2023-01-22 02:31] VITALS: RESP 18
[2023-01-22 06:53] LABS: African American GFR (CKD) >90 (>60 ml/min/1.73 sqM); Anion Gap 10 mmol/L; Blood Urea Nitrogen 16 mg/dL (9-20); Calcium 9.7 mg/dL (8.4-10.2); Carbon Dioxide 29 mmol/L (22-30); Chloride 98 mmol/L (98-107); Glucose 101 mg/dL (74-99); Non-African American GFR(CKD) 78 (>60 ml/min/1.73 sqM); Potassium 3.2 mmol/L (3.5-5.1); Sodium 137 mmol/L (137-145)
[2023-01-22 07:05] LABS: Prothrombin Time 10.2 sec (9.0-12.0)
[2023-01-22 08:03] VITALS: BP 105/74; PULSE 114; TEMP 97.8
[2023-01-22] MEDS: CHLORTHALIDONE 25 MG TAB PO SCH (09:26)
[2023-01-22] MEDS: ENOXAPARIN 40 MG/0.4 ML SYRINGE SQ SCH (09:26)
[2023-01-22] MEDS: amLODIPine 10 MG TAB PO SCH (09:26)
[2023-01-22] MEDS: carvediloL 6.25 MG TAB PO SCH (09:26)
[2023-01-22] MEDS: lisinopriL 20 MG TAB PO SCH (09:27)
--- NOTE | 2023-01-22 09:31 | P.PN ---
Subjective Progress Note Date: 01/22/23 Principal diagnosis: Left knee periprosthetic infection Patient was seen at bedside this morning lying in semirecumbent position with ice over left knee and dressing in place. Patient mentions there is a little bit of bleeding present on the knee. Patient is aware of PICC line placement plan for later today. Patient says he has been talking with field case manager and field case manager [facility] Patient denies any issues weightbearing. Patient denies any other changes at this time. Patient denies chest pain, fever, shortness breath, nausea, vomiting, change in vision, loss of bowel/bladder control. Objective - Vital Signs Vital signs: Vital Signs Temp 97.8 F 01/22/23 06:59 Pulse 114 H 01/22/23 06:59 Resp 18 01/22/23 06:59 BP 105/74 01/22/23 06:59 Pulse Ox 99 01/22/23 06:59 FiO2 Intake & Output 01/21/23 01/22/23 01/22/23 18:59 06:59 18:59 Intake Total 550 Output Total 800 Balance -250 Intake: Intake, IV Titration 550 Amount Vancomycin 1,500 mg In 500 Sodium Chloride 0.9% 500 ml 500 ml @ 167 mls/hr IVPB Q12H LATISHA Rx#: [id number] cefTRIAXone 2 gm In 50 Sodium Chloride 0.9% 50 ml @ 100 mls/hr IVPB Q24HR LATISHA Rx#:[id number] Output: Urine 800 Other: # Voids 2 - Exam Right knee: Dressing appears with some spotting. There is laceration along the medial aspect of the knee over the proximal tibia. New dressing was placed over this. A surgical dressing was placed over main incision on knee. Comfort appear to be in good place. Incision appears be healing well. There is minimal soft tissue swelling and ecchymosis surrounding the medial and lateral aspects of the incision. Calf is soft, no tenderness with palpation. Plantar flexion, dorsiflexion, EHL, FHL are intact. Sensory exam to light touch throughout the extremity is intact, dorsal pedis pulses 2+. - Labs CBC & Chem 7: 01/21/23 06:31 01/22/23 05:39 Labs: Abnormal Lab Results - Last 24 Hours (Table) 01/21/23 01/22/23 Range/Units 06:31 05:39 RBC 4.29 L (4.40-5.60) X 10*6/uL Hgb 12.0 L (13.0-17.0) d/dL Hct 37.5 L (39.6-50.0) % Monocytes # 1.20 H (0.20-1.00) X 10*3/uL Eosinophils # 0.79 H (0.04-0.35) X 10*3/uL ESR 99 H (0-20) mm/Hr Potassium 3.2 L (3.5-5.1) mmol/L Glucose 101 H (74-99) mg/dL Microbiology - Last 24 Hours (Table) 01/18/23 11:39 Blood Culture - Preliminary Blood 01/18/23 11:54 Blood Culture - Preliminary Blood Assessment and Plan Assessment: Left knee periprosthetic infection - Postop day 4 status post Left knee arthrotomy with polyethylene exchange, irrigation and debridement and antibiotic bead placement Plan: 1. Left knee periprosthetic infection - surgery performed 01/18/2023 - Left knee arthrotomy with polyethylene exchange, irrigation and debridement and antibiotic bead placement. Patient stable at bedside this morning. PICC line placement later today with possible discharge home later today. Surgical dressing changed at bedside this morning. Incision appears really want this time. [place] are well aligned and intact. Negative for any active drainage. We will continue to follow patient during a standard hospital. Weightbearing as tolerated. Pain medication as needed. 2. Appreciate medical management 3. Pain management - [place] 4. DVT prophylaxis - Lovenox 5. GI prophylaxis - milk of mag 6. PT/OT - weightbearing as tolerated with walker as needed 7. Encourage incentive spirometer use 8. Discharge planning - awaiting PICC line to be placed for potential discharge Time with Patient: Less than 30
--- NOTE | 2023-01-22 09:42 | IR ---
PICC LINE PLACEMENT: HISTORY: Infection requiring long-term antibiotic therapy PROCEDURE: Ultrasound and fluoroscopic guidance of PICC line placement. COMPLICATIONS: None ANESTHESIA: 1. 1% Lidocaine locally. FINDINGS/TECHNIQUE: The procedure was explained to the patient. The risks, complications, benefits and alternatives were discussed and any questions were answered. Informed consent was obtained. The patient was placed supine on the fluoroscopic table and prepped and draped in the usual sterile fash ion. Utilizing a 21 gauge needle and sonographic and fluoroscopic guidance, access in the left basi lic vein was achieved and there is placement of a 0.018 guidewire. The vein is patent. A 4-F sheath was placed over the guidewire. The guidewire and dilator were removed and a 4-F. PICC line was plac ed through the sheath with the tip at the level of the SVC. The sheath was removed, the catheter was flushed and sutured into position. The patient was stable throughout the procedure and remained sta ble upon discharge from the Department of Radiology. The vein puncture was patent under ultrasound. A schrader scale image was obtained to document patency of the vein punctured. All elements of the maximal barrier technique were utilized. FLUOROSCOPY TIME: DAP 0.5189Gy cm2 IMPRESSION: Successful PICC line placement under ultrasound and fluoroscopic guidance.
[2023-01-22 09:54] LABS: HCT 38.3 % (39.6-50.0); HGB 12.5 d/dL (13.0-17.0); MCH 27.8 pg (27.0-32.0); MCHC 32.6 d/dL (32.0-37.0); MCV 85.3 FL (80.0-97.0); Mean Platelet Volume 10.4 FL (9.5-12.2); NRBC Per 100 WBC 0 X 10*3/uL (0.00-0.01); Platelet Count 266 X 10*3/uL (140-440); RBC 4.49 X 10*6/uL (4.40-5.60); RDW 14.5 % (11.5-14.5); WBC 8.67 X 10*3/uL (4.50-10.00)
--- NOTE | 2023-01-22 10:22 | P.PN ---
Subjective Progress Note Date: 01/22/23 Principal diagnosis: Left knee septic arthritis Patient is a 52-year-old -[place] male with a past medical history significant for hypertension hyperlipidemia osteoarthritis patient did have a left total knee arthroplasty about 6 weeks before presentation to the hospital with the draining from his left knee area and this patient who is status post left knee arthrotomy with polyethylene exchange and antibiotic beads placement. On today's evaluation that is 01/22/2023, the patient is afebrile, the patient is breathing comfortably on room air , the patient denies chest pain or cough, patient denies Abdominal pain , no nausea/vomiting /diarrhea, the patient pain to the left knee is currently controlled, patient did get a PICC line this morning Patient white count is 8.67, creatinine is 1.07, cultures has been negative so far Objective - Vital Signs Vital signs: Vital Signs Temp 97.8 F 01/22/23 06:59 Pulse 114 H 01/22/23 06:59 Resp 18 01/22/23 06:59 BP 105/74 01/22/23 06:59 Pulse Ox 99 01/22/23 06:59 FiO2 Intake & Output 01/21/23 01/22/23 01/22/23 18:59 06:59 18:59 Intake Total 550 Output Total 800 Balance -250 Intake: Intake, IV Titration 550 Amount Vancomycin 1,500 mg In 500 Sodium Chloride 0.9% 500 ml 500 ml @ 167 mls/hr IVPB Q12H [facility] Rx#: [id number] cefTRIAXone 2 gm In 50 Sodium Chloride 0.9% 50 ml @ 100 mls/hr IVPB Q24HR [facility] Rx#:[id number] Output: Urine 800 Other: # Voids 2 - Exam GENERAL DESCRIPTION: Middle-aged male lying in bed in no distress RESPIRATORY SYSTEM: Unlabored breathing , decreased breath sounds at bases HEART: S1 S2 regular rate and rhythm , ABDOMEN: Soft , no tenderness EXTREMITIES: Left knee is currently dressed - Labs CBC & Chem 7: 01/22/23 05:39 01/22/23 05:39 Labs: Abnormal Lab Results - Last 24 Hours (Table) 01/21/23 01/22/23 Range/Units 06:31 05:39 RBC 4.29 L (4.40-5.60) X 10*6/uL Hgb 12.0 L (13.0-17.0) d/dL Hct 37.5 L (39.6-50.0) % Monocytes # 1.20 H (0.20-1.00) X 10*3/uL Eosinophils # 0.79 H (0.04-0.35) X 10*3/uL ESR 99 H (0-20) mm/Hr Potassium 3.2 L (3.5-5.1) mmol/L Glucose 101 H (74-99) mg/dL Microbiology - Last 24 Hours (Table) 01/18/23 11:39 Blood Culture - Preliminary Blood 01/18/23 11:54 Blood Culture - Preliminary Blood Assessment and Plan (1) Infected prosthetic knee joint Current Visit: Yes Status: Acute Code(s): T84.59XA - INFECT/INFLM REACTION DUE TO OTH INTERNAL JOINT PROSTH, INIT; Z96.659 - PRESENCE OF UNSPECIFIED ARTIFICIAL KNEE JOINT SNOMED Code(s): 236196257 (2) Septic arthritis Current Visit: Yes Status: Acute Code(s): M00.9 - PYOGENIC ARTHRITIS, UNSPECIFIED SNOMED Code(s): 038060249 Plan: 1patient presenting the hospital with the drainage from his left knee lateral side likely from the drainage catheter site failing outpatient oral antibiotic therapy concern for possible deep infection in this patient who is status post polyethylene exchange irrigation debridement and antibiotic bead placement and cultures which are currently pending, will likely need to cover for the gram- positive skin fran to be the likely pathogen 2- patient did have a sed rate of 44 and creatinine 16.5, cultures are negative for MRSA 3patient did get a PICC line plan is for IV Rocephin 4 weeks with weekly monitoring of CRP and a sed rate close outpatient follow-up Dictation was produced using [employer] dictation software. please excuse any grammatical, word or spelling errors. Time with Patient: Less than 30
--- NOTE | 2023-01-22 11:56 | P.DS ---
Providers Date of admission: 01/18/23 11:23 Expected date of discharge: 01/22/23 Attending physician: Morgan Peraza Consults: 01/18/23 11:23 Consult Physician Routine Consulting Provider: Eva Treviño Consult Reason/Comments: Management medical Do you want consulting provider notified?: Yes Consult Physician Routine Consulting Provider: Francois Crane Consult Reason/Comments: Septic arthritis Do you want consulting provider notified?: Yes Primary care physician: [facility] Hospital Course: Date of admission: 01/18/2023 Date of discharge: 01/22/2023 Admission diagnosis: Left knee periprosthetic septic arthropathy Discharge diagnosis: Same, status post irrigation and debridement with polyethylene liner exchange, antibiotic bead placement Attending physician: Dr. Peraza Surgical procedures: Left knee arthrotomy with irrigation and debridement, polyethylene liner exchange and antibiotic bead placement Brief history: Patient is a 53-year-old male with a history of a previous right total knee arthroplasty I was done about 6 weeks ago initially by Dr. Peraza. Patient was being evaluated in the outpatient setting for a small wound that was on the lateral aspect of the knee. There was initially low concern for septic arthropathy at that time, he was on an oral antibiotic in the form of Keflex 500 mg every 6 hours. Patient was evaluated in the outpatient setting on 01/18/2023 okay noticed significant purulent drainage from the wound. Patient was then directly admitted to the hospital and taken to surgery for an irrigation and debridement procedure. Hospital course: Details of patient's surgery can be found in operative report. Patient tolerated the procedure well and was subsequently transported to orthopedic floor. Patient's orthopeidc and medical care was provided daily. Patient had daily laboratory tests performed for evaluation of overall blood counts. Patient had daily physical therapy to include strengthening range of motion as well as education with walker ambulation. Patient was treated with Lovenox for their postoperative DVT prophylaxis during their inpatient stay. Patient was noted to have a relatively uneventful postoperative course. Patient was followed by both internal medicine and infectious disease. A PICC line was placed prior to discharge and IV antibiotics were set up via his insurance. Patient reported satisfactory pain control with oral pain medications by postoperative day 1. Patient showed satisfactory progress with physical therapy. Patient moved steadily through the program and had no difficulty meeting the goals by postoperative day 4. Given patient's otherwise satisfactory course and having met physical therapy goals, plan is to discharge patient home on postoperative day 4. Discharge condition/disposition: Patient will be discharged home in stable condition. Discharge medications: Instructions are given on resumption of patient's normal daily medications per primary care recommendation, in addition patient will be prescribed [place] 7.5 mg/325 mg, Rocephin 2 g. Discharge instructions: 1. Wound care and infection precautions [keep incision dry and covered while showerig], no lotions, creams, moisturizers. No soaking, tubs, pools, hottubs. Do not scrub over the incision. 2. Weight-diane [as toleratd] with walker / cane until follow-up. 3. Ice and elevate when necessary. Do not exceed 20 minutes per hour with ice pack. 4. Utilize compression sleeve until seen at first follow up appointment. 5. Visiting nursing care. 6. Home physical therapy 7. Pain meds and anticoagulants per prescription. 8. Pain medication has potential to cause constipation. Increase oral fluid and fiber intake. Contact primary care provider if you have not had a bowel movement within 48 hours after discharge 9. No anti-inflammatory medication until discussed at first post operative visit, this including Motrin, Aleve, Mobic, Diclofenac Aspirn 10. Follow up in office at 2 weeks postop with Jean Méndez PA-C/Domo Garces 11. Follow up with your primary care doctor 7-10 days after discharge. 12. Contact [facility] with any questions, . Procedures: Left knee arthrotomy with irrigation and debridement, polyethylene liner exchange and antibiotic bead placement Patient Condition at Discharge: Stable Plan - Discharge Summary Discharge Rx Participant: Yes New Discharge Prescriptions: New cefTRIAXone [Rocephin] 2,000 mg IVP Q24HR #28 each HYDROcodone/APAP 7.5-325MG [[place] 7.5] 1 each PO Q6HR PRN #28 tab PRN Reason: Pain Discontinued Cephalexin [Keflex] 500 mg PO QID No Action amLODIPine [Norvasc] 10 mg PO DAILY Benazepril HCl 40 mg PO DAILY carvediloL [Coreg] 6.25 mg PO BID Atorvastatin Calcium 20 mg PO HS Chlorthalidone 25 mg PO DAILY HYDROcodone/APAP 7.5-325MG [[place] 7.5] 1 tab PO Q6HR PRN PRN Reason: Pain Discharge Medication List Benazepril HCl 40 mg PO DAILY 01/06/19 [History] amLODIPine [Norvasc] 10 mg PO DAILY 01/06/19 [History] Atorvastatin Calcium 20 mg PO HS 02/26/22 [History] Chlorthalidone 25 mg PO DAILY 02/26/22 [History] carvediloL [Coreg] 6.25 mg PO BID 02/26/22 [History] HYDROcodone/APAP 7.5-325MG [[place] 7.5] 1 tab PO Q6HR PRN 01/18/23 [History] cefTRIAXone [Rocephin] 2,000 mg IVP Q24HR #28 each 01/21/23 [Rx] HYDROcodone/APAP 7.5-325MG [[place] 7.5] 1 each PO Q6HR PRN #28 tab 01/22/23 [Rx] Follow up Appointment(s)/Referral(s): [facility],Home Care [NON-STAFF] - As Needed ([facility] Luna will call you to schedule the time for your in home nursing visits to begin IV antibiotic teaching. Your first visit will be on 01/23/23.) Cristo Méndez PAC [PHYSICIAN ASSOCIATE FINANCIAL PLANNER] - 01/29/23 11:30 am [facility] [REFERRING] - As Needed ([facility] will deliver the IV antibiotic supplies to your house on this evening between 6-9pm. ) Francois Crane MD [STAFF PHYSICIAN] - 1 Week [facility],Clinic [Primary Care Provider] - 1-2 days Activity/Diet/Wound Care/Special Instructions: Orthopedic discharge instructions: 1. Resume home medications 2. Pain medication as needed 3. Ice and elevate often 4. Keep incisions covered with current dressing for the next 2-3 days 5. Keep incision covered and dry while showering 6. Plan for [facility]-up at [facility] 2 weeks for recheck Discharge Disposition: HOME WITH HOME HEALTH SERVICES
[2023-01-22] MEDS ORDERED: POTASSIUM CHLORIDE ER 20 MEQ TAB.ER PO STA (11:57)
--- NOTE | 2023-01-22 12:06 | P.PN ---
Subjective Progress Note Date: 01/22/23 Patient is a 52-year-old male with PMH of hypertension, dyslipidemia presents to the ED for increased pain and swelling in the left knee. He underwent left total knee arthroplasty under Dr. Peraza on 11/30. He underwent left knee arthrotomy with polyethylene exchange, irrigation and debridement and antibiotic bead placement with Dr. Peraza on 01/18. Patient seen and examined at bedside. He is doing well, pain well controlled, no complaints currently. Vital signs reviewed General: nontoxic, no distress, appears at stated age Cardiovascular: S1S2 reg, no murmur, positive posterior tibial pulse bilateral, Lungs: CTA bilateral, no rhonchi, no rales , no accessory muscle use Ext: no gross muscle atrophy, no edema b/l lower extremities, no contractures, dressing in place over left knee Neuro: CN II-XI grossly intact, no focal neuro deficits Psych: Alert, oriented, appropriate affect Assessment/Plan: Septic Arthritis of the left knee, periprosthetic status post irrigation, debridement and antibiotic bead placement on 01/18/23,, failed outpatient treatment with keflex -ID recs: Plan will be for 6 weeks of IV Rocephin given negative cultures of the knee. PICC line placed today. -Home med rec addressed Hypokalemia - potassium 20 meq PO X 1 now prior to discharge Normocytic anemia, Stable - repeat CBC in AM Hypertension - Chlorthalidone 25 mg PO QD. Coreg 6.25 mg PO BID. Amlodipine 10 mg PO QD. Lisinopril 40 mg PO QD - follow BP Dyslipidemia - Lipitor 20 mg PO QHS. Imaging: None new Data Review: Afebrile for the last 24 hours. Labs reviewed from today are CBC, BMP, coags and remarkable for hgb 12.5, potassium 3.2 Thank you for allowing us to participate in the care of this pleasant patient. Do not hesitate to contact us with questions. Someone can be reached from the [facility] hospitalist group all hours of the day at [phone] or via [employer]. This dictation was prepared using [employer] voice recognition software. Though every attempt is made to correct errors during dictation some may still exist. Objective - Vital Signs Vital signs: Vital Signs Temp 97.8 F 01/22/23 06:59 Pulse 114 H 01/22/23 06:59 Resp 18 01/22/23 06:59 BP 105/74 01/22/23 06:59 Pulse Ox 99 01/22/23 06:59 FiO2 Intake & Output 01/21/23 01/22/23 01/22/23 18:59 06:59 18:59 Intake Total 550 Output Total 800 Balance -250 Intake: Intake, IV Titration 550 Amount Vancomycin 1,500 mg In 500 Sodium Chloride 0.9% 500 ml 500 ml @ 167 mls/hr IVPB Q12H [facility] Rx#: [id number] cefTRIAXone 2 gm In 50 Sodium Chloride 0.9% 50 ml @ 100 mls/hr IVPB Q24HR [facility]ISHA Rx#:[id number] Output: Urine 800 Other: # Voids 2 - Labs CBC & Chem 7: 01/22/23 05:39 01/22/23 05:39 Labs: Abnormal Lab Results - Last 24 Hours (Table) 01/22/23 01/22/23 Range/Units 05:39 05:39 Hgb 12.5 L (13.0-17.0) d/dL Hct 38.3 L (39.6-50.0) % Potassium 3.2 L (3.5-5.1) mmol/L Glucose 101 H (74-99) mg/dL Microbiology - Last 24 Hours (Table) 01/18/23 11:39 Blood Culture - Preliminary Blood 01/18/23 11:54 Blood Culture - Preliminary Blood
[2023-01-22] MEDS: MULTIVITAMINS, THERA 1 EACH TAB PO SCH (13:09)
[2023-01-23] MEDS ORDERED: VANCOMYCIN TROUGH DUE 1 EACH MISC MISCELLANE ONE (05:00)
== END 2023-01-22 16:19 | disposition home health service (06) | DRG 487 ==
LOC: EC 10:33 → 4SSUR 11:23
PROVIDERS: ADMIT Orthopaedic Surgery; ATTEND Orthopaedic Surgery
PROC: 0SUW09Z Supplement Left Knee Joint, Tibial Surface with Liner, Open Approach (ICD-10-PCS; principal; 2023-01-18 15:25)
PROC: 0SBC0ZZ Excision of Right Knee Joint, Open Approach (ICD-10-PCS; principal; 2023-01-18 15:25)
PROC: 3E1U38Z Irrigation of Joints using Irrigating Substance, Percutaneous Approach (ICD-10-PCS; principal; 2023-01-18 15:25)
PROC: 3E0U029 Introduction of Other Anti-infective into Joints, Open Approach (ICD-10-PCS; principal; 2023-01-18 15:25)
PROC: 02HV33Z Insertion of Infusion Device into Superior Vena Cava, Percutaneous Approach (ICD-10-PCS; 2023-01-22)
DX: T84.54XA Infection and inflammatory reaction due to internal left knee prosthesis, initial encounter (principal); Y83.1 Surgical operation with implant of artificial internal device as the cause of abnormal reaction of the patient, or of later complication, without mention of misadventure at the time of the procedure; Z28.311 Partially vaccinated for COVID-19; Z28.21 Immunization not carried out because of patient refusal; G43.709 Chronic migraine without aura, not intractable, without status migrainosus; E78.5 Hyperlipidemia, unspecified; E87.6 Hypokalemia; F17.210 Nicotine dependence, cigarettes, uncomplicated; I10 Essential (primary) hypertension; K59.00 Constipation, unspecified; Z79.82 Long term (current) use of aspirin; Z96.651 Presence of right artificial knee joint; Z79.899 Other long term (current) drug therapy
CPT/HCPCS: 36573; 80048; 80053; 80202; 82565; 83605; 83735; 85025; 85027; 85610; 85652; 85730; 86140; 86850; 86900; 86901; 87040; 87070; 87075; 87205

== ENCOUNTER 2023-01-27 07:36 | Emergency (ER) | payer OTHER ==
[2023-01-27 07:50] VITALS: RESP 16; TEMP 98.2
[2023-01-27] MEDS ORDERED: SODIUM CHLORIDE 0.9% 500 ML 500 ML IV STA (08:11)
--- NOTE | 2023-01-27 08:14 | ED ---
General Adult HPI - General Stated complaint: Pic line malfunction Time Seen by Provider: 01/27/23 07:58 Source: patient Mode of arrival: ambulatory Limitations: no limitations - History of Present Illness Initial comments: The patient is the 53-year-old male presents emergency room for evaluation of his PICC line. The patient woke up and noticed bleeding at the PICC line inse rtion site. He denies any pain. Denies any swelling or discoloration to the arm. He wanted to make sure it was in place and functioning prior to administering his antibiotics. Patient had home health yesterday who replaced the bandages. He has been taking his vancomycin without any issues. - Related Data Home Medications Medication Instructions Recorded Confirmed Benazepril HCl 40 mg PO DAILY 01/06/19 01/18/23 amLODIPine [Norvasc] 10 mg PO DAILY 01/06/19 01/18/23 Atorvastatin Calcium 20 mg PO HS 02/26/22 01/18/23 Chlorthalidone 25 mg PO DAILY 02/26/22 01/18/23 carvediloL [Coreg] 6.25 mg PO BID 02/26/22 01/18/23 Previous Rx's Medication Instructions Recorded cefTRIAXone [Rocephin] 2,000 mg IVP Q24HR #28 each 01/21/23 HYDROcodone/APAP 7.5-325MG [Lusk 1 each PO Q6HR PRN #28 tab 01/22/23 7.5] Multivitamins, Thera [Multivitamin 1 each PO DAILY@1200 tab 01/22/23 (formulary)] Allergies Allergy/AdvReac Type Severity Reaction Status Date / Time No Known Allergies Allergy Verified 01/27/23 07:41 Review of Systems ROS Statement: Those systems with pertinent positive or pertinent negative responses have been documented in the HPI. ROS Other: All systems not noted in ROS Statement are negative. Past Medical History Past Medical History: Hyperlipidemia, Hypertension, Osteoarthritis (OA) Additional Past Medical History / Comment(s): migraines History of Any Multi-Drug Resistant Organisms: None Reported Past Surgical History: Orthopedic Surgery Additional Past Surgical History / Comment(s): ACHILLES TENDON LEFT. RT/LT KNEE SURGERY. COLONOSCOPY Past Anesthesia/Blood Transfusion Reactions: No Reported Reaction Past Psychological History: No Psychological Hx Reported Smoking Status: Current every day smoker Past Alcohol Use History: None Reported Past Drug Use History: Marijuana - Past Family History Mother Family Medical History: No Reported History General Exam Limitations: no limitations General appearance: alert, in no apparent distress Neck exam: Present: normal inspection Respiratory exam: Present: normal lung sounds bilaterally Cardiovascular Exam: Present: regular rate, normal rhythm Extremities exam: Present: full ROM, other (PICC line in the left kidney without loss of with bleeding over the gauze. No surrounding erythema, ecchymosis or swelling.) Course Vital Signs 01/27/23 01/27/23 07:41 09:05 Temperature 98.2 F 98.2 F Pulse Rate 120 H 103 H Respiratory 16 16 Rate Blood Pressure 155/101 128/92 O2 Sat by Pulse 99 100 Oximetry - Reevaluation(s) Reevaluation #1: 01/27/23 840 [address] line is in place and imaging. Patient was given IV fluids successfully without any complications. The PICC line Was used for cleaning and re-bandaging including Tegaderm by myself. Patient will be discharged home and may continue his antibiotics as prescribed. Medical Decision Making - Medical Decision Making Was pt. sent in by a medical professional or institution (, PA, MANAGER RADIO, urgent care, hospital, or residential...) When possible be specific @ -[No] Did you speak to anyone other than the patient for history (EMS, parent, family, police, friend...)? What history was obtained from this source @ -[No] Did you review nursing and triage notes (agree or disagree)? Why? @ -[I reviewed and agree with nursing and triage notes] Were old charts reviewed (outside hosp., previous admission, EMS record, old EKG, old radiological studies, urgent care reports/EKG's, residential records)? Report findings @ -Yes old charts were reviewed Differential Diagnosis (chest pain, altered mental status, abdominal pain women, abdominal pain men, vaginal bleeding, weakness, fever, dyspnea, syncope, headache, dizziness, GI bleed, back pain, seizure, CVA, palpatations, mental health, musculoskeletal)? @ -Bleeding at PICC line site, medical screening exam, PICC line evaluation EKG interpreted by me (3pts min.). @ -[As above] X-rays interpreted by me (1pt min.). @ -No obvious pneumothorax or other acute changes, PICC line appears to be in site however radiology report is pending for confirmation of this read CT interpreted by me (1pt min.). @ -[None done] U/S interpreted by me (1pt. min.). @ -[None done] What testing was considered but not performed or refused? (CT, X-rays, U/S, labs)? Why? @ -[None] What meds were considered but not given or refused? Why? @ -[None] Did you discuss the management of the patient with other professionals (professionals i.e. , PA, MANAGER RADIO, lab, RT, psych nurse, addiction social worker, housing project manager, teacher, hydrological technical officer, case finisher)? Give summary @ Discussed patient's symptoms workup and management with attending ED physician Dr Owens today. Was smoking cessation discussed for >3mins.? @ -[No] Was critical care preformed (if so, how long)? @ -[No] Were there social determinants of health that impacted care today? How? (Homelessness, low income, unemployed, alcoholism, drug addiction, transportation, low edu. Level, literacy, decrease access to med. care, correction, rehab)? @ -[No] Was there de-escalation of care discussed even if they declined (Discuss DNR or withdrawal of care, Hospice)? DNR status @ -[No] What co-morbidities impacted this encounter? (DM, HTN, Smoking, COPD, CAD, Cancer, CVA, ARF, Chemo, Hep., AIDS, mental health diagnosis, sleep apnea, morbid obesity)? @ -[None] Was patient admitted / discharged? Hospital course, mention meds given and route, prescriptions, significant lab abnormalities, going to OR and other pertinent info. @ -[h] Undiagnosed new problem with uncertain prognosis? @ -[No] Drug Therapy requiring intensive monitoring for toxicity (Heparin, Nitro, Insulin, Cardizem)? @ -[No] Were any procedures done? @ -[No] Diagnosis/symptom? @ -Bleeding at PICC line site, PICC line evaluation, medical screening exam Acute, or Chronic, or Acute on Chronic? @ -Acute Uncomplicated (without systemic symptoms) or Complicated (systemic symptoms)? @ -Uncomplicated Side effects of treatment? @ -[No] Exacerbation, Progression, or Severe Exacerbation? @ -[No] Poses a threat to life or bodily function? How? (Chest pain, [place], [place], pneumonia, PE, COPD, DKA, ARF, appy, cholecystitis, CVA, Diverticulitis, Homicidal, Suicidal, threat to staff... and all critical care pts) @ -[No] - Radiology Data Radiology results: report reviewed, image reviewed Disposition Clinical Impression: Bleeding from PICC line Disposition: HOME SELF-CARE Instructions (If sedation given, give patient instructions): How to Care for Your PICC (Peripherally Inserted Central Catheter) (ED), PICC (Peripherally Inserted Central Catheter) (DC) Is patient prescribed a controlled substance at d/c from ED?: No If prescribed controlled substance>3 days was MAPS reviewed?: No Referrals: [facility],Clinic [Primary Care Provider] - 1-2 days Time of Disposition: 08:55
--- NOTE | 2023-01-27 08:29 | XR ---
EXAMINATION TYPE: XR chest 1V confirm line plcil DATE OF EXAM: 01/27/2023 COMPARISON: 11/28/2011 HISTORY: PICC line placement TECHNIQUE: Single frontal view of the chest is obtained. FINDINGS: There is no focal air space opacity, pleural effusion, or pneumothorax seen. The cardiac silhouette size is within normal limits. The osseous structures are intact. PICC line seen with the tip at the level of the SVC. Atherosclerotic change aorta. Hyperinflation suggests COPD. Ectasia of the aorta. IMPRESSION: 1. PICC line appears in good position at the level of the SVC.
[2023-01-27 09:17] VITALS: BP 128/92; PULSE 103
== END 2023-01-27 09:35 | disposition home or self-care (01) ==
LOC: EC 07:36
DX: T82.838A Hemorrhage due to vascular prosthetic devices, implants and grafts, initial encounter (principal); I10 Essential (primary) hypertension; E78.5 Hyperlipidemia, unspecified; F17.200 Nicotine dependence, unspecified, uncomplicated; F12.90 Cannabis use, unspecified, uncomplicated; Z79.899 Other long term (current) drug therapy
CPT/HCPCS: 99284

== ENCOUNTER → 2023-10-13 | Outpatient (CLI) | payer OTHER ==
--- NOTE | 2023-10-13 14:57 | US ---
EXAMINATION TYPE: US venous doppler duplex LE RT DATE OF EXAM: 10/13/2023 10:11 AM COMPARISON: No direct comparisons CLINICAL INDICATION: Male, 53 years old with history of R60.9 EDEMA, UNSPECIFIED RLE; Right knee pain and edema SIDE PERFORMED: Right TECHNIQUE: The lower extremity deep venous system is examined utilizing real time linear array sonog kassie with graded compression, doppler sonography and color-flow sonography. VESSELS IMAGED: Common Femoral Vein Deep Femoral Vein Greater Saphenous Vein * Femoral Vein Popliteal Vein Small Saphenous Vein * Proximal Calf Veins (* superficial vessels) Grayscale, color doppler, spectral doppler imaging performed of the deep veins of the right lower ext remity. There is normal flow, compressibility, vascular waveforms. Right Leg: No evidence of DVT. Anechoic lesion right popliteal fossa = 5.8 x 1.6 x 3.2cm, Barillas's cy st IMPRESSION: 1. No deep venous thrombosis of the right lower extremity. 2. Barillas cyst.
== END | disposition home or self-care (01) ==
LOC: RADUSWWP 09:42
PROVIDERS: ATTEND Family Medicine
DX: M71.21 Synovial cyst of popliteal space [Baker], right knee (principal)

== ENCOUNTER → 2023-10-25 | Outpatient (CLI) | payer OTHER ==
--- NOTE | 2023-11-02 22:01 | MR ---
EXAMINATION TYPE: MR knee RT wo con DATE OF EXAM: 10/25/2023 COMPARISON: Prior MRI right knee December 31, 2021 HISTORY: Right knee medial pain and swelling for 4 years. TECHNIQUE: Multiplanar, multisequence images of the knee is performed without IV contrast. FINDINGS: MEDIAL MENISCUS: Marked truncated appearance to posterior horn with abnormal signal extending to nesha cular surface. LATERAL MENISCUS: Horizontal increased signal is present does not definitively extend to articular edward rface. CRUCIATE LIGAMENTS: The anterior and posterior cruciate ligaments are intact and unremarkable. COLLATERAL LIGAMENTS: The medial collateral ligament and lateral collateral ligament complex are inta ct. Medial bulging medial collateral ligament with mild surrounding fluid. EXTENSOR MECHANISM: Visualized quadriceps and patellar tendons are intact. EFFUSION: Large size suprapatellar joint effusion. POPLITEAL CYST: Moderate size popliteal/carrion cyst. TRICOMPARTMENT SPACES: Moderate to severe tricompartment joint space loss with mild spurring. CARTILAGE: Chondromalacia patella with full-thickness cartilaginous loss and posterior patellar pole identified. Full-thickness cartilaginous loss medial tibial femoral compartment now seen. BONE MARROW SIGNAL: Heterogeneous diminished T1 and increased T2 signal involving the tricompartment joint spaces most prominent involving the medial tibiofemoral and patellofemoral compartments. OTHER: No additional significant abnormality is appreciated. IMPRESSION: 1. Advanced tricompartment degenerative changes are present as detailed above with interval degenerat rajesh progression from most recent MRI particularly involving the medial tibiofemoral compartment. 2. Marked progression involving full-thickness tear medial meniscus involving central body and industrial hygienist ior horn. 3. New large suprapatellar joint effusion. 4. Larger now moderate size popliteal cyst. 5. At least Intrasubstance tear lateral meniscus. 6. Mild MCL sprain injury.
== END | disposition home or self-care (01) ==
LOC: RADMRIMAIN 20:15
PROVIDERS: ATTEND Orthopaedic Surgery
DX: M17.11 Unilateral primary osteoarthritis, right knee (principal); S83.241A Other tear of medial meniscus, current injury, right knee, initial encounter; S83.281A Other tear of lateral meniscus, current injury, right knee, initial encounter

== ENCOUNTER → 2023-11-18 | Outpatient (CLI) | payer OTHER ==
[2023-11-18 16:11] LABS: Basophils # (A) 0.04 X 10*3/uL (0.00-0.10); Basophils % (A) 0.7 %; Eosinophils # (A) 0.29 X 10*3/uL (0.04-0.35); HCT 48.8 % (39.6-50.0); HGB 15.5 g/dL (13.0-17.0); Lymphocytes # (A) 1.75 X 10*3/uL (0.90-5.00); Lymphocytes % (A) 29.9 %; MCHC 31.8 g/dL (32.0-37.0); MCV 91.2 FL (80.0-97.0); Monocytes # (A) 0.56 X 10*3/uL (0.20-1.00); Monocytes % (A) 9.6 %; NRBC Per 100 WBC 0 X 10*3/uL (0.00-0.01); Neutrophils # (A) 3.19 X 10*3/uL (1.80-7.70); Neutrophils % (A) 54.5 %; Platelet Count 176 X 10*3/uL (140-440); RBC 5.35 X 10*6/uL (4.40-5.60); RDW 15.4 % (11.5-14.5); WBC 5.85 X 10*3/uL (4.50-10.00)
[2023-11-18 16:36] LABS: Anion Gap 11.4 mmol/L (4.00-12.00); Carbon Dioxide 22.6 mmol/L (21.6-31.8); Potassium 4.2 mmol/L (3.5-5.5)
== END | disposition home or self-care (01) ==
LOC: LABWHC1 07:39
PROVIDERS: ATTEND Orthopaedic Surgery
DX: Z01.818 Encounter for other preprocedural examination (principal); M23.91 Unspecified internal derangement of right knee
CPT/HCPCS: 36415; 80051; 85025; 93005

== ENCOUNTER 2023-12-02 11:00 | Day surgery (SDC) | payer OTHER ==
[~2023-12-02 11:00] MED LIST changes: -ACETAMINOPHEN TAB 500 MG TAB PO PRN; +BUPIVACAINE (PF) 0.25% 30 ML VIAL ONE; +DEXAMETHASONE SOD PHOSPHATE 4 MG/ML 1 ML VIAL ONE; +LABETALOL 5 MG/ML VIAL MDV ONE; +LACTATED RINGERS 1,000 ML BAG ONE; +LIDOCAINE 1% INJ 10MG/ML (20 ML MDV) ONE; -MELOXICAM 7.5 MG TAB PO PRN; +MIDAZOLAM 2 MG/2 ML VIAL ONE; +ONDANSETRON 4 MG/2 ML VIAL ONE; +PROPOFOL 10 MG/ML 20 ML VIAL IV ONE; -TRANEXAMIC 1,000 MG/100ML-NACL 1,000 MG in SALINE 1 100ML.BAG IVPB PRN; +fentaNYL (PF) 50 MCG/ML 2 ML AMP ONE
[2023-12-02] MEDS ORDERED: HYDROmorphone 0.5 MG/0.5 ML SYRINGE ONE ×3 (11:24→11:38)
[2023-12-02] MEDS ORDERED: hydrALAZINE HCL 20 MG/ML 1 ML VIAL ONE (11:49)
[2023-12-02] MEDS ORDERED: LABETALOL SYRINGE 5 MG/ML (4 ML SYR) ONE (12:41)
--- NOTE | 2023-12-10 15:54 | OP ---
OPERATIVE REPORT DATE OF SERVICE : 12/02/2023 PREOPERATIVE DIAGNOSIS: Internal derangement, right knee. POSTOPERATIVE DIAGNOSES: 1. Medial and lateral meniscal tears, right knee. 2. Grade 4 chondromalacia, medial femoral condyle, right knee. 3. Grade 4 chondromalacia, lateral femoral condyle, right knee. 4. Reactive synovitis, medial, lateral, and suprapatellar compartments, right knee. 5. Grade 2 chondromalacia patella, right knee. PROCEDURES PERFORMED: 1. Arthroscopic partial medial and lateral meniscectomy, right knee. 2. Arthroscopic microfracture, medial femoral condyle, right knee. 3. Arthroscopic microfracture, lateral femoral condyle, right knee. 4. Arthroscopic partial synovectomy, medial, lateral, and suprapatellar compartments, right knee. 5. Arthroscopic chondroplasty, patella, right knee. ANESTHESIA: General. ESTIMATED BLOOD LOSS: 7 mL. COMPLICATIONS: None. The patient tolerated the procedure well. INDICATIONS: Kacie Jade is a gentleman seen with progressive right knee pain. We discussed options regarding treatment. He elected to proceed with arthroscopy. Consent was obtained. DESCRIPTION OF PROCEDURE: The patient was taken to the operative suite. He underwent a general anesthetic by the Department of Anesthesia. He received preoperative IV antibiotics. The right lower extremity was placed in a well-padded arthroscopic leg mnotana. The right lower extremity was prepped and draped in normal sterile orthopedic fashion. A lateral parapatellar incision was made. A trocar was inserted followed by a probe. I removed the probe. Suprapatellar compartment revealed diffuse thick reactive synovitis. Grade 2 chondromalacia changes about the patella with osteochondral flap tears. No loose bodies. The scope was guided into the lateral gutter. No loose bodies. Scope was guided to medial compartment, a medial parapatellar incision was made. Trocar was inserted, followed by a probe. There was a tear involving the posterior horn and midbody of the medial meniscus. There was an area of grade 3/4 chondromalacia about the medial femoral condyle with osteochondral flap tears. There was thick reactive synovitis anteriorly. I performed a partial medial meniscectomy, getting down to a stable meniscal tissue. I performed a chondroplasty of the medial femoral condyle, getting down a stable osteochondral tissue. I performed a partial synovectomy decompressing the reactive synovitis. I did note an area of grade 4 chondromalacia involving the medial femoral condyle, measured 1 x 2.5 cm. I introduced a microfracture awl. I performed a microfracture to two separate areas of exposed bone, medial femoral condyle, penetrating the bone at both areas with resultant bleeding at both microfracture sites. The residual osteochondral surface was probed and was found to be stable. The residual meniscus was stable. There was good decompression of the synovitis. The scope was guided into the intercondylar notch, ACL and PCL were identified, probed, stable, scope guided into the lateral compartment. There was a complex tear involving the mid body and posterior horns of the lateral meniscus. There were grade 4 chondromalacia changes along the femoral condyle and tibial plateau. The femoral condyle measured a little over centimeter. The tibial plateau was 2 x 2 cm. There was thick reactive synovitis anteriorly. I performed a partial lateral meniscectomy, getting down a stable meniscal tissue. I performed a chondroplasty of lateral femoral condyle in the partial synovectomy decompressing the reactive synovitis. I now introduced the microfracture awl, and I performed a microfracture to the area of exposed bone, lateral femoral condyle, penetrating the bone with resultant bleeding at the microfracture site. The residual meniscus was probed and was found to be stable. The residual osteochondral surface was stable. There was good decompression of synovitis. The probe was removed. The scope was guided to the lateral gutter. No loose bodies. The scope was guided into the suprapatellar compartment, I introduced the motorized shaver, I performed a chondroplasty of the patella, getting on a stable osteochondral tissue. I performed a partial synovectomy, decompression of thick reactive synovitis. The shaver was now removed. The residual osteochondral surface of the patella was stable. There was good decompression of the synovitis. I took one more look around the entire knee, no residual debris. Instruments were now removed from the knee. The portal sites were approximated with Steri-Strips. Sterile dressings were applied, followed by TEODORA hose. I did infiltrate the knee with 0.25% plain Marcaine 20 mL for postoperative pain management. A TEODORA hose was applied to the extremity. The patient was awakened, transferred to bed, then recovery in stable condition having tolerated the procedure well. MMODL / IJN: [id number] /
--- NOTE | 2024-01-03 10:13 | HP ---
HISTORY AND PHYSICAL Surgery is on 12/02/2023. HISTORY OF PRESENT ILLNESS: Kacie Jade is a gentleman seen with progressive right knee pain consistent with meniscal tear. We discussed options. He elected to proceed with right knee arthroscopy. Consent was obtained. PAST MEDICAL HISTORY: Noncontributory. SURGICAL HISTORY: Left total knee arthroplasty. MEDICATIONS: On record. PHYSICAL EVALUATION OF THE RIGHT KNEE: Range of motion is 0 to 130 degrees. Tenderness along the medial and lateral joint lines. Positive medial Daniella's. Positive lateral Daniella's. Ligaments stable. Distal neurovascular exam intact. IMPRESSION: Internal derangement of right knee with medial and lateral meniscal tears. PLAN: Right knee arthroscopy with partial medial meniscectomy, partial lateral meniscectomy, and possible microfracture and debridement. MMODL / IJN: [id number] /
== END 2023-12-02 13:30 ==
LOC: OR 11:00
PROVIDERS: ATTEND Orthopaedic Surgery
DX: S83.281A Other tear of lateral meniscus, current injury, right knee, initial encounter (principal); S83.241A Other tear of medial meniscus, current injury, right knee, initial encounter; M22.41 Chondromalacia patellae, right knee; M65.161 Other infective (teno)synovitis, right knee; X58.XXXA Exposure to other specified factors, initial encounter